=== PATIENT | male | born 1950 | race African-American/Black ===

== ENCOUNTER 2018-04-06 16:16 | Inpatient (IN) | payer BC, OTHER ==
--- NOTE | 2018-04-06 17:25 | PDOC ---
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 As per , she was visiting him at the [facility] when he started shaking for 2 minutes. As per , the patient bit his tongue. The denies any confusion after his episode. The patient can not give a full history, but can answer questions. The patient is back to his baseline now. The patient denies chest pain, shortness of breath, headache or dizziness. The patient denies fever, chills, nausea, vomit, diarrhea or constipation. Allergies: NKDA Past surgical history: urologic Surgery (ANEURYSM), Orthopedic Surgery (right knee replacement) Social history: None reported PCP: Dr. Roxana Ruiz - Physicial Exam PE: 04/06/18 18:33 GENERAL: Awake, alert, and fully oriented, in no acute distress HEAD: No signs of trauma EYES: PERRLA, EOMI, sclera anicteric, conjunctiva clear ENT: (+) hematoma on tip of tongue. Auricles normal inspection, hearing grossly normal. NECK: Normal ROM, supple, no lymphadenopathy, JVD, or masses LUNGS: Breath sounds equal, clear to auscultation bilaterally. No wheezes, and no crackles HEART: Regular rate and rhythm, normal S1 and S2, no murmurs, rubs or gallops ABDOMEN: Soft, nontender, normoactive bowel sounds. No guarding, no rebound. No masses EXTREMITIES:(+) Left upper and lower extremity paralyzed. No clubbing or cyanosis. No cords, erythema, or tenderness NEUROLOGICAL: (+) Left sided facial droop. (+) left sided paralysis in arms/ legs.Cranial nerves II through XII grossly intact. Normal speech SKIN: Warm, Dry, normal turgor, no rashes or lesions noted. <Martina Allen - Last Filed: 04/06/18 18:32> - Resident Resident Name: Nando Johansen - ED Attending Attestation I have performed the following: I have examined & evaluated the patient, The case was reviewed & discussed with the resident, I agree w/resident's findings & plan, Exceptions are as noted - Medical Decision Making 04/06/18 17:24 I, Dr. Jelly Tang DO, attest that this document has been prepared under my direction and personally reviewed by me in its entirety. I further attest, that it accurately reflects all work, treatment, procedures and medical decision -making performed by me. 04/06/18 18:01 a/p: 68yo male biba from his E[facility] -from [place] -per medics and - shaking episode today- bit his tongue, urinary freq and fecal incontinence -concern for seizure today -hx of basal ganglia hemorrhage on the R -will send for head ct, labs, ekg -pt will need obs overnight -ua 04/06/18 19:32 borderline trop no acute findings on head ct 04/06/18 19:37 will replace potassium 04/07/18 01:56 resident discussed the case with [facility] who accepts pt to service <Jelly Tang - Last Filed: 04/07/18 01:56> Heart Score/ECG Review - ECG Intrepretation Comment:: 04/06/18 17:35 sinus at 96 with 1st degree av block, poor r wave progression, q waves septally that are age indeterminate, no acute st/t wave findings, L axis deviation <Jelly Tang - Last Filed: 04/07/18 01:56> Attestations - Attestations 04/06/18 18:33 Documentation prepared by Martina Allen, acting as senior medical director for Jelly Tang DO, MD <Martina Allen - Last Filed: 04/06/18 18:32>
[2018-04-06 18:03] LABS: BASO % 0.6 % (0-2.0); EOS % 1.6 % (0-4.5); HEMATOCRIT 39.4 % (35.4-49); HEMOGLOBIN 12.9 GM/dL (11.7-16.9); LYMPH % 11.5 % (8-40); MCH 23.3 pg (25.7-33.7); MCHC 32.9 g/dl (32.0-35.9); MEAN CELL VOLUME 70.8 fl (80-96); MEAN PLT VOLUME 7.3 fl (7.5-11.1); MONO % 4.7 % (3.8-10.2); NEUT % 81.6 % (42.8-82.8); PLATELET COUNT 139 K/MM3 (134-434); RBC 5.56 M/mm3 (4.00-5.60); RDW 16.1 % (11.9-15.9)
--- NOTE | 2018-04-06 18:11 | PDOC ---
History of Present Illness - General Chief Complaint: Seizure Stated Complaint: SEIZURE Time Seen by Provider: 04/06/18 16:42 History Source: Patient, Family Exam Limitations: Clinical Condition - History of Present Illness Initial Comments: 04/06/18 18:07 Patient is a 68M with history of R basal ganglia bleed with resultant l sided hemiparesis, htn, dm, afb here today complaining of a seizure. His , at bedside, was visiting him from [facility] when he started shaking for 1-2 minutes. reports he had an episode of stool incontinence and bit his tongue. The denies confusion later. No fevers, chills, nausea, vomiting. Patient is able to communicate, but is somewhat limited to answering simple questions. Denies pain, agrees that he feels like he normally does. Patient is complaining of pain to his tongue.. 04/06/18 18:13 Past History - Past Medical History Allergies/Adverse Reactions: Allergies Allergy/AdvReac Type Severity Reaction Status Date / Time No Known Allergies Allergy Verified 08/22/17 13:51 Home Medications: Ambulatory Orders Aa/[place]/Arg/C/Zn/Cu [Lps Critical Care Liquid] 30 ml PO DAILY Acetaminophen 650 mg PO Q6H 04/06/18 Amlodipine Besylate 10 mg PO DAILY 04/06/18 Apixaban [Eliquis -] 5 mg PO BID 04/06/18 Docusate Sodium [Colace -] 100 mg PO TID 04/06/18 Ferrous Sulfate 325 mg PO DAILY 04/06/18 Hydralazine HCl 25 mg PO QID 04/06/18 Levothyroxine [Synthroid -] 75 mcg PO DAILY 04/06/18 Metoprolol Succinate [Toprol Xl -] 100 mg PO DAILY 04/06/18 Olmesartan Medoxomil [Benicar] 40 mg PO DAILY 04/06/18 Polyvinyl Alcohol [Artificial Tears] 2 drop OD QID 04/06/18 Rosuvastatin [Crestor -] 10 mg PO HS 04/06/18 Silver Sulfadiazine 1% Top Cr [Silvadene -] 1 applic TP DAILY 04/06/18 Sitagliptin Phosphate [Januvia] 50 mg PO DAILY 04/06/18 Sodium Chloride [Saline Mist] 1 spray NS TID 04/06/18 Tamsulosin HCl 0.8 mg PO DAILY 04/06/18 Anemia: No Asthma: No Cancer: No Cardiac Disorders: Yes (atrial fib) CVA: Yes (Right basal ganglia bleed (10/2015)) COPD: No CHF: No Dementia: No Diabetes: Yes GI Disorders: No Disorders: No HTN: Yes Hypercholesterolemia: Yes Liver Disease: No Seizures: No Thyroid Disease: Yes - Surgical History Abdominal Surgery: No Appendectomy: No Cardiac Surgery: No Cholecystectomy: No Lung Surgery: No Neurologic Surgery: Yes (ANEURSYM) Orthopedic Surgery: Yes (right knee) - Immunization History Immunization Up to Date: Yes - Suicide/Smoking/Psychosocial Hx Smoking Status: No Smoking History: Unknown if ever smoked Have you smoked in the past 12 months: No Number of Cigarettes Smoked Daily: 0 Information on smoking cessation initiated: No Hx Alcohol Use: No Drug/Substance Use Hx: No Substance Use Type: None Hx Substance Use Treatment: No Review of Systems - Review of Systems Able to Perform ROS?: No (2/2 CVA) *Physical Exam - Vital Signs Last Vital Signs Temp Pulse Resp BP Pulse Ox 98.3 F 110 H 20 188/101 H 95 04/06/18 16:20 04/06/18 16:20 04/06/18 16:20 04/06/18 16:20 04/06/18 16:20 - Physical Exam Comments: 04/06/18 18:11 GENERAL: Awake, alert, and fully oriented HEAD: No signs of trauma, normocephalic, atraumatic EYES: PERRLA, EOMI, sclera anicteric, conjunctiva clear ENT: Auricles normal inspection, hearing grossly normal, nares patent, oropharynx clear without exudates. Moist mucosa NECK: Normal ROM, supple, no lymphadenopathy, JVD, or masses LUNGS: No distress, speaks full sentences, clear to auscultation bilaterally HEART: Regular rate and rhythm, normal S1 and S2, no murmurs, rubs or gallops, peripheral pulses normal and equal bilaterally. ABDOMEN: Soft, nontender, normoactive bowel sounds. No guarding, no rebound. No masses EXTREMITIES: Contracted extremities, left more than right. NEUROLOGICAL: L sided facial droop, left sided paralysis in arms/legs. Sensation intact bilaterally, EOEMI SKIN: Warm, Dry, normal turgor, no rashes or lesions noted. Moderate Sedation - Procedure Monitoring Vital Signs: Procedure Monitoring Vital Signs Temperature 98.3 F 04/06/18 16:20 Pulse Rate 110 H 04/06/18 16:20 Respiratory Rate 20 04/06/18 16:20 Blood Pressure 188/101 H 04/06/18 16:20 O2 Sat by Pulse Oximetry (%) 95 04/06/18 16:20 ED Treatment Course - LABORATORY CBC & Chemistry Diagram: 04/06/18 17:53 04/06/18 17:53 - ADDITIONAL ORDERS Additional order review: Laboratory Results 04/06/18 16:26 POC Glucometer 140 04/06/18 04/06/18 17:53 16:26 RBC 5.56 MCV 70.8 L MCHC 32.9 RDW 16.1 H MPV 7.3 L Neutrophils % 81.6 D Lymphocytes % 11.5 D Monocytes % 4.7 Eosinophils % 1.6 D Basophils % 0.6 POC Glucometer 140 - RADIOLOGY Radiology Studies Ordered: Category Date Time Status HEAD CT WITHOUT CONTRAST [CT] Stat CT Scan 04/06/18 16:55 Ordered CHEST X-RAY PORTABLE* [RAD] Stat Radiology 04/06/18 16:55 Ordered Medical Decision Making - Medical Decision Making 04/06/18 18:13 Patient is 68M with history of R sided basal ganglia bleed, right sided hemiparesis, afib, htn here today with a seizure. Vitals tachycardic at triage, not tachycardic during my exam. DDx includes, but is not limited to: metabolic abnormality, uti, bleed. Will evaluate with basic labs, trop, ekg, head ct. Back to baseline at this time. 04/06/18 20:26 EKG shows NSR at 96. No st elevations/depressions. Left axis. 1st degree av block. Normal QRS, LBBB pattern. No significant t wave abnormalities Head CT negative. CBC, CMP normal. Trop to 0.06. CXR clear. Will obs patient. *DC/Admit/Observation/Transfer Diagnosis at time of Disposition: Seizure - Discharge Dispostion Condition at time of disposition: Stable Decision to Admit order: Yes - Referrals - Patient Instructions - Post Discharge Activity
[2018-04-06 18:16] LABS: INR 1.23 (0.83-1.09); PROTHROMBIN TIME (PATIENT) 14.5 SEC (9.7-13.0)
[2018-04-06 18:55] LABS: ALBUMIN 3.3 g/dl (3.4-5.0); ALK PHOS 128 U/L (45-117); ANION GAP 9 MMOL/L (8-16); BILIRUBIN,TOTAL 0.4 mg/dL (0.2-1); BLOOD UREA NITROGEN 23 mg/dL (7-18); CALCIUM 8.4 mg/dL (8.5-10.1); CHLORIDE 101 mmol/L (98-107); CO2 32 mmol/L (21-32); CREATININE 1.2 mg/dL (0.55-1.3); GLUCOSE,RANDOM 184 mg/dL (74-106); POTASSIUM 3.1 mmol/L (3.5-5.1); SGOT/AST 28 U/L (15-37); SGPT/ALT 36 U/L (13-61); SODIUM 141 mmol/L (136-145)
[2018-04-06] MEDS: KCL 10 MEQ IVPB 10 MEQ/100 ML INFUS.BAG IVPB SCH (21:43)
[2018-04-06] MEDS ORDERED: KCL 10 MEQ IVPB 20 MEQ/200 ML INFUS.BAG IVPB ONE (21:45)
--- NOTE | 2018-04-06 22:01 | HP ---
Admitting History and Physical - Primary Care Physician PCP: Roxana Ruiz - Admission Chief Complaint: Seizure episode History of Present Illness: 68 year old male with a significant past medical history of AFIB, CVA (2012), HTN, HLD, cerebral aneurysm (2012) and [place] (2014), CKD, diabetes II, thyroid disease, hemiplegia and hemiparesis 2/2 right basal ganglia bleed (2015) and who presents to the Emergency Department after a seizure episode on the afternoon of 04/06. As per patient he was in bed at his care home visiting with his when he noted "things in his visual field". I spoke with via phone who endorses patient had generalized shaking for a little over a minute, his eyes rolled back and he had tongue biting which resulted in bleeding from his mouth. denies fecal and urine incontinence (pt was already soiled prior to seizure activity). Pt denies dizziness, chest pain, + shortness of breath after episode. EMS was activated and patient taken to [facility] for evaluation. In ED: head CT negative for acute findings. TRop # 1 = 0.06 Decision made to admit patient for overnight observation with neuro to evaluate in the morning prior to d/c PCP: Dr. 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 (cerebral aneurysm has two titanium clips) Cardiovascular: Yes: AFIB, Deep Vein Thrombosis, HTN, Hyperlipdemia Renal/: Yes: Renal Inusuff Musculoskeletal: Yes: Hemiparesis, Hemiplegia Endocrine: Yes: Diabetes Mellitus, Hypothyroidism Additional Past Medical History: umbilical hernia - Past Surgical History Past Surgical History: Yes: Nephrectomy (right) Additional Past Surgical History: s/p tracheostomy and removal s/p G tube and removal Right knee replacement cerebral Aneurysm s/p coiling s/p right frontal craniotomy - Smoking History Smoking history: Unknown if ever smoked Have you smoked in the past 12 months: No Aproximately how many cigarettes per day: 0 - Alcohol/Substance Use Hx Alcohol Use: No History of Substance Use: reports: None - Social History Usual Living Arrangement: Yes: Long Term ADL: Support Services Occupation: Disabled, History of Recent Travel: No Home Medications - Allergies Allergies/Adverse Reactions: Allergies Allergy/AdvReac Type Severity Reaction Status Date / Time No Known Allergies Allergy Verified 08/22/17 13:51 - Home Medications Home Medications: Ambulatory Orders Aa/[place] Craig,[place]/Arg/C/Zn/Cu [Lps Critical Care Liquid] 30 ml PO DAILY Acetaminophen 650 mg PO Q6H 04/06/18 Amlodipine Besylate 10 mg PO DAILY 04/06/18 Apixaban [Eliquis -] 5 mg PO BID 04/06/18 Docusate Sodium [Colace -] 100 mg PO TID 04/06/18 Ferrous Sulfate 325 mg PO DAILY 04/06/18 Hydralazine HCl 25 mg PO QID 04/06/18 Levothyroxine [Synthroid -] 75 mcg PO DAILY 04/06/18 Metoprolol Succinate [Toprol Xl -] 100 mg PO DAILY 04/06/18 Olmesartan Medoxomil [Benicar] 40 mg PO DAILY 04/06/18 Polyvinyl Alcohol [Artificial Tears] 2 drop OD QID 04/06/18 Rosuvastatin [Crestor -] 10 mg PO HS 04/06/18 Silver Sulfadiazine 1% Top Cr [Silvadene -] 1 applic TP DAILY 04/06/18 Sitagliptin Phosphate [Januvia] 50 mg PO DAILY 04/06/18 Sodium Chloride [Saline Mist] 1 spray NS TID 04/06/18 Tamsulosin HCl 0.8 mg PO DAILY 04/06/18 Family Disease History - Family Disease History Other Family History: mother (70) HTN CVA. father HTN related illnesses. brother age 84, [place]. 9 other siblings, all , no h/o cancer, [place], CVA Review of Systems - Review of Systems Constitutional: reports: No Symptoms Eyes: reports: Floaters Neck: reports: No Symptoms Cardiovascular: reports: Shortness of Breath Physical Examination Vital Signs: Vital Signs Temperature 98.3 F 04/06/18 16:20 Pulse Rate 84 04/06/18 20:27 Respiratory Rate 18 04/06/18 20:27 Blood Pressure 132/88 04/06/18 20:27 O2 Sat by Pulse Oximetry (%) 96 04/06/18 20:27 Labs: CBC, BMP 04/06/18 17:53 04/06/18 17:53 Imaging - Results Chest X-ray: Report Reviewed (Head CT 04/06/2018 Impression: Cranial CT without contrast Clinical information: seizure No acute intracranial hemorrhage is seen. There is no obvious mass lesion on noncontrast imaging. No acute infarct is noted within the limitations of CT. Status post right frontal craniotomy, right temporal craniectomy with cranioplasty. Right temporal lobe and right basal ganglia/right frontal subcortical white matter encephalomalacia. Vascular coils are again seen along the ventral aspect of the right temporal lobe. There is no extra-axial fluid collection. Moderate ventricular dilatation is noted probably due to central atrophy versus representing a component of communicating hydrocephalus. Reported By: Grzegorz Rene MD 04/06/18 [id number]) Problem List - Problems (1) Seizure Assessment/Plan: monitor patient overnight Ativan 1mg PRN seizure activity Neuro consult placed pt has outpatient neurologist with whom he can follow up with Code(s): R56.9 - UNSPECIFIED CONVULSIONS (2) Afib Assessment/Plan: telemetry bed Eliquis 5mg BID metoprol 100mg Daily Code(s): I48.91 - UNSPECIFIED ATRIAL FIBRILLATION Qualifiers: Atrial fibrillation type: paroxysmal Qualified Code(s): I48.0 - Paroxysmal atrial fibrillation (3) Hypercholesteremia Assessment/Plan: crestor 10mg qhs Code(s): E78.0 - PURE HYPERCHOLESTEROLEMIA * DO NOT USE * (4) Hypertension Assessment/Plan: continue home dose of valsartan, norvasc and hydralazine cardiac diet Code(s): I10 - ESSENTIAL (PRIMARY) HYPERTENSION Qualifiers: Hypertension type: essential hypertension Qualified Code(s): I10 - Essential (primary) hypertension (5) Hypothyroid Assessment/Plan: synthroid 75mcg TSH/T4F with AM labs Code(s): E03.9 - HYPOTHYROIDISM, UNSPECIFIED Qualifiers: Hypothyroidism type: unspecified Qualified Code(s): E03.9 - Hypothyroidism , unspecified (6) BPH (benign prostatic hyperplasia) Assessment/Plan: continue flomax Code(s): N40.0 - BENIGN PROSTATIC HYPERPLASIA WITHOUT LOWER URINRY TRACT SYMP (7) Diabetes mellitus Assessment/Plan: continue Januvia fingerstick AC/HS Code(s): E11.9 - TYPE 2 DIABETES MELLITUS WITHOUT COMPLICATIONS Qualifiers: Diabetes mellitus type: type 2 Assessment/Plan DISPO: Full code -d/c to [place] if remains stable and cleared by neuro in the morning Visit type - Emergency Visit Emergency Visit: Yes ED Registration Date: 04/06/18 Care time: The patient presented to the Emergency Department on the above date and was hospitalized for further evaluation of their emergent condition. - New Patient This patient is new to me today: Yes Date on this admission: 04/06/18 - Critical Care Critical Care patient: No
[2018-04-06] MEDS: ACETAMINOPHEN 325 MG TABLET (FP) PO SCH (22:03)
[2018-04-06] MEDS ORDERED: ALBUTEROL SO4 2.5/IPRATROPIUM 0.5 INH SOL 3 ML VIAL.NEB. NEB ONE (22:13)
[2018-04-06] MEDS ORDERED: methylPREDNISolone NA SUCC 125 MG/2 ML VIAL ONE (22:14)
[2018-04-06] MEDS ORDERED: LORazepam 2 MG/ML SDV VIAL IVPUSH PRN (22:29)
[2018-04-06] MEDS: ARTIFICIAL TEARS (POLYVINYL ALCOHOL) OPTH DROPS OD SCH (22:50)
[2018-04-06] MEDS: APIXABAN 5 MG TABLET PO SCH (22:50)
[2018-04-06] MEDS: DOCUSATE SODIUM 100 MG CAPSULE (FP) PO SCH (22:50)
[2018-04-06] MEDS: SODIUM CHLORIDE NASAL SPRAY 44 ML BOTTLE NS SCH (22:50)
[2018-04-06] MEDS: ROSUVASTATIN CA 10 MG TABLET (FP) PO SCH (22:50)
[2018-04-07] MEDS: ACETAMINOPHEN 325 MG TABLET (FP) PO SCH ×5 (00:12→23:42)
[2018-04-07] MEDS: hydrALAZINE HCL 25 MG TABLET (FP) PO SCH ×5 (00:12→23:42)
[2018-04-07] MEDS: DOCUSATE SODIUM 100 MG CAPSULE (FP) PO SCH ×3 (05:30→21:23)
[2018-04-07] MEDS: sitaGLIPtin PHOSPHATE 50 MG TABLET PO SCH (06:14)
[2018-04-07] MEDS: SODIUM CHLORIDE NASAL SPRAY 44 ML BOTTLE NS SCH ×3 (06:14→21:18)
[2018-04-07] MEDS: LEVOTHYROXINE NA 75 MCG TABLET (FP) PO SCH (06:15)
[2018-04-07] MEDS: amLODIPine BESYLATE 10 MG TABLET (FP) PO SCH (09:55)
[2018-04-07] MEDS: FERROUS SO4 325 MG TABLET (FP) PO SCH (09:55)
[2018-04-07] MEDS: TAMSULOSIN HCL 0.4 MG CAP PO SCH (09:55)
[2018-04-07] MEDS: APIXABAN 5 MG TABLET PO SCH ×2 (09:55→21:17)
[2018-04-07] MEDS: VALSARTAN 160 MG TABLET (UD) PO SCH (09:55)
[2018-04-07] MEDS: ARTIFICIAL TEARS (POLYVINYL ALCOHOL) OPTH DROPS OD SCH ×4 (09:56→21:18)
[2018-04-07] MEDS: SILVER SULFADIAZINE 1% TOP CREAM 50 GM JAR TP SCH (09:57)
[2018-04-07] MEDS ORDERED: PATIENT'S OWN MEDICATION (NON-FORMULARY) (Aa/Hydro Coll,Whey/Arg/C/Zn/Cu [Lps Critical Car PO SCH (10:00)
--- NOTE | 2018-04-07 11:20 | PN ---
Progress Note, Physician Chief Complaint: patient admitted for seizure repeat labs ordered including trop and potassium level cardiology and neurology consult pending - Current Medication List Current Medications: Active Medications Acetaminophen (Tylenol -) 650 mg PO Q6HPO [facility] Last Admin: 04/07/18 05:30 Dose: 650 mg Amlodipine Besylate (Norvasc -) 10 mg PO DAILY [facility] Last Admin: 04/07/18 09:55 Dose: 10 mg Apixaban (Eliquis -) 5 mg PO BID [facility] Last Admin: 04/07/18 09:55 Dose: 5 mg Artificial Tears (Artificial Tears) 2 drop OD QID [facility] Last Admin: 04/07/18 09:56 Dose: 2 drop Docusate Sodium (Colace -) 100 mg PO TID [facility] Last Admin: 04/07/18 05:30 Dose: 100 mg Ferrous Sulfate (Feosol -) 325 mg PO DAILY [facility] Last Admin: 04/07/18 09:55 Dose: 325 mg Hydralazine HCl (Apresoline -) 25 mg PO Q6HPO [facility] Last Admin: 04/07/18 05:30 Dose: 25 mg Levothyroxine Sodium (Synthroid -) 75 mcg PO DAILY@0700 [facility] Last Admin: 04/07/18 06:15 Dose: 75 mcg Lorazepam (Ativan Injection -) 1 mg IVPUSH Q6H PRN PRN Reason: seizure activity Metoprolol Succinate (Toprol Xl -) 100 mg PO DAILY [facility] Last Admin: 04/07/18 09:55 Dose: 100 mg Rosuvastatin Calcium (Crestor -) 10 mg PO HS [facility] Last Admin: 04/06/18 22:50 Dose: 10 mg Silver Sulfadiazine (Silvadene -) 1 applic TP DAILY [facility] Last Admin: 04/07/18 09:57 Dose: Not Given Sitagliptin Phosphate (Januvia -) 50 mg PO DAILY@0700 [facility] Last Admin: 04/07/18 06:14 Dose: 50 mg Sodium Chloride ([place] -) 1 spray NS TID [facility] Last Admin: 04/07/18 06:14 Dose: 1 spray Tamsulosin HCl (Flomax -) 0.8 mg PO DAILY@0830 [facility] Last Admin: 04/07/18 09:55 Dose: 0.8 mg Valsartan (Diovan -) 320 mg PO DAILY [facility] Last Admin: 04/07/18 09:55 Dose: 320 mg - Objective Vital Signs: Vital Signs Temperature 98.3 F 04/07/18 09:29 Pulse Rate 54 L 04/07/18 09:29 Respiratory Rate 20 04/07/18 09:29 Blood Pressure 153/94 04/07/18 09:29 O2 Sat by Pulse Oximetry (%) 95 04/07/18 09:29 Constitutional: Yes: Calm Cardiovascular: Yes: Regular Rate and Rhythm, S1, S2 Respiratory: Yes: CTA Bilaterally Gastrointestinal: Yes: Normal Bowel Sounds, Soft Neurological: Yes: Pre-Existing Deficit Labs: CBC, BMP 04/06/18 17:53 04/06/18 17:53 INR, PTT INR 1.23 (0.83-1.09) H 04/06/18 17:53 Problem List - Problems (1) Seizure Assessment/Plan: eeg neurology eval repeat labs ordered Code(s): R56.9 - UNSPECIFIED CONVULSIONS (2) BPH (benign prostatic hyperplasia) Assessment/Plan: flomax Code(s): N40.0 - BENIGN PROSTATIC HYPERPLASIA WITHOUT LOWER URINRY TRACT SYMP (3) Afib Assessment/Plan: metoprolol and eliquis Code(s): I48.91 - UNSPECIFIED ATRIAL FIBRILLATION Qualifiers: Atrial fibrillation type: paroxysmal Qualified Code(s): I48.0 - Paroxysmal atrial fibrillation (4) Hypothyroid Assessment/Plan: on synthroid Code(s): E03.9 - HYPOTHYROIDISM, UNSPECIFIED Qualifiers: Hypothyroidism type: unspecified Qualified Code(s): E03.9 - Hypothyroidism , unspecified
--- NOTE | 2018-04-07 11:48 | CON.NEURO ---
Consult Consult Specialty:: NEUROLOGY-NAN JAVIER - History of Present Illness History of Present Illness: The patient is a 68 year old male, from [facility], with a significant past medical history of hemiplegia and hemiparesis 2/2 right basal ganglia bleed (2015), Diabetes, HTN, HLD, CVA (2012), cerebral aneurysm (2012) and [place] (2014), Atrial fibrillation, and Thyroid disease who presents to the emergency department, after having a seizure. As per , she was visiting him at the halfway when he started shaking for 2 minutes. As per , the patient bit his tongue. The denies any confusion after his episode. The patient can not give a full history, but can answer questions. The patient is back to his baseline now. As per he has had aneurysm clipping/cerebral hge at [facility], he had a GTC at that time. K+ was low yesterday, she witnessed a GTC yesterday. The patient denies chest pain, shortness of breath, headache or dizziness. The patient denies fever, chills, nausea, vomit, diarrhea or constipation. 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 deep vein thrombosis - Past Surgical History Past Surgical History: Yes: Nephrectomy (right) - Alcohol/Substance Use Hx Alcohol Use: No History of Substance Use: reports: None - Smoking History Smoking history: Unknown if ever smoked Have you smoked in the past 12 months: No Aproximately how many cigarettes per day: 0 - Social History ADL: Support Services Occupation: Disabled, History of Recent Travel: No Home Medications - Allergies Allergies/Adverse Reactions: Allergies Allergy/AdvReac Type Severity Reaction Status Date / Time No Known Allergies Allergy Verified 08/22/17 13:51 - Home Medications Home Medications: Ambulatory Orders Aa/[place] Craig,[place]/Arg/C/Zn/Cu [Lps Critical Care Liquid] 30 ml PO DAILY Acetaminophen 650 mg PO Q6H 04/06/18 Amlodipine Besylate 10 mg PO DAILY 04/06/18 Apixaban [Eliquis -] 5 mg PO BID 04/06/18 Docusate Sodium [Colace -] 100 mg PO TID 04/06/18 Ferrous Sulfate 325 mg PO DAILY 04/06/18 Hydralazine HCl 25 mg PO QID 04/06/18 Levothyroxine [Synthroid -] 75 mcg PO DAILY 04/06/18 Metoprolol Succinate [Toprol Xl -] 100 mg PO DAILY 04/06/18 Olmesartan Medoxomil [Benicar] 40 mg PO DAILY 04/06/18 Polyvinyl Alcohol [Artificial Tears] 2 drop OD QID 04/06/18 Rosuvastatin [Crestor -] 10 mg PO HS 04/06/18 Silver Sulfadiazine 1% Top Cr [Silvadene -] 1 applic TP DAILY 04/06/18 Sitagliptin Phosphate [Januvia] 50 mg PO DAILY 04/06/18 Sodium Chloride [Saline Mist] 1 spray NS TID 04/06/18 Tamsulosin HCl 0.8 mg PO DAILY 04/06/18 Family Disease History - Family Disease History Other Family History: mother (70) HTN CVA. father HTN related illnesses. brother age 84, [place]. 9 other siblings, all , no h/o cancer, [place], CVA Physical Exam-Neuro Vital Signs: Vital Signs Temperature 98.3 F 04/07/18 09:29 Pulse Rate 54 L 04/07/18 09:29 Respiratory Rate 20 04/07/18 09:29 Blood Pressure 153/94 04/07/18 09:29 O2 Sat by Pulse Oximetry (%) 95 04/07/18 09:29 Labs: CBC, BMP 04/06/18 17:53 04/06/18 17:53 INR, PTT INR 1.23 (0.83-1.09) H 04/06/18 17:53 - Neuro Exam Level Of Consciousness: Yes: Alert, Oriented to Person, Oriented to Place Eyes: Yes: Right Hemianopsia Speech: WNL Dominant Hand: Right Mini Mental Exam: Intact att/conc. Cranial Nerves II-XII Intact: No DTR's: 2+ Left Achilles, 2+ Right Achilles, 3+ Left Bicep, 3+ Right Bicep, 3+ Left Tricep, 3+ Right Tricep, 3+ Left Brachioradialis, 3+ Right Brachioradialis Babinski: Present (left) Motor Strength: 0/5: Left Arm, Left Leg, 5/5: Left Arm, Right Arm, Left Leg, Right Leg Gait: Other (unable to stand) Imaging - Results Cat Scan: Report Reviewed (Right frontal/temp.craniectomy, right temp/bg encephalomalacia) Assessment/Plan Sz(partial with sec.gen.x1 in setting of old right temp hge. Likely triggered by metabolic abn. Given he has a possible focus would place on Keppra 750mg bid , EEG Thank you, Travis Lane MD
[2018-04-07 13:12] LABS: ALBUMIN 3.2 g/dl (3.4-5.0); ALK PHOS 118 U/L (45-117); ANION GAP 7 MMOL/L (8-16); BILIRUBIN,TOTAL 0.6 mg/dL (0.2-1); BLOOD UREA NITROGEN 19 mg/dL (7-18); CALCIUM 8.3 mg/dL (8.5-10.1); CHLORIDE 104 mmol/L (98-107); CO2 31 mmol/L (21-32); CREATININE 1.1 mg/dL (0.55-1.3); GLUCOSE,RANDOM 106 mg/dL (74-106); SGOT/AST 22 U/L (15-37); SGPT/ALT 30 U/L (13-61); SODIUM 142 mmol/L (136-145); TOT PROT 7.9 g/dl (6.4-8.2)
[2018-04-07] MEDS ORDERED: POTASSIUM CHLORIDE ORAL LIQUID 20 MEQ/15 ML PO ONE (14:36)
--- NOTE | 2018-04-07 14:38 | PN ---
Progress Note (short form) - Note Progress Note: replete potassium troponin high- cardiology eval repeat labs in AM Problem List - Problems (1) Seizure Code(s): R56.9 - UNSPECIFIED CONVULSIONS (2) BPH (benign prostatic hyperplasia) Code(s): N40.0 - BENIGN PROSTATIC HYPERPLASIA WITHOUT LOWER URINRY TRACT SYMP (3) Afib Code(s): I48.91 - UNSPECIFIED ATRIAL FIBRILLATION Qualifiers: Atrial fibrillation type: paroxysmal Qualified Code(s): I48.0 - Paroxysmal atrial fibrillation (4) Hypothyroid Code(s): E03.9 - HYPOTHYROIDISM, UNSPECIFIED Qualifiers: Hypothyroidism type: unspecified Qualified Code(s): E03.9 - Hypothyroidism , unspecified
--- NOTE | 2018-04-07 15:04 | ECHO ---
Name: ANDREW SEOJAYDEN Exam:Adult Echocardiogram Study Date: 04/07/2018 09:33 AM Age: 68 yrs Reason For Study: Murmur MMode/2D Measurements & Calculations IVSd: 1.8 cm Ao root diam: 4.7 cm LVIDd: 4.7 cm LA dimension: 2.2 cm LVIDs: 2.4 cm ACS: 2.0 cm LVPWd: 1.7 cm IVSs: 2.4 cm LVPWs: 2.4 cm EDV(Teich): 100.7 ml ESV(Teich): 20.7 ml Doppler Measurements & Calculations MV E max lane: 66.1 cm/sec Ao V2 max: 76.4 cm/sec MV A max lane: 88.1 cm/sec Ao max P.3 mmHg MV E/A: 0.75 Ao V2 mean: 55.5 cm/sec Ao mean P.4 mmHg Ao V2 VTI: 16.[address]: 3.3 cm/sec Med E/e': 20.[address]: 4.2 cm/sec Lat E/e': 15.9 Procedure A complete two-dimensional transthoracic echocardiogram was performed (2D, M-mode, Doppler and color flow Doppler). Left Ventricle There is severe concentric left ventricular hypertrophy. The left ventricular ejection fraction is no rmal. Ejection Fraction = 60-65%. The left ventricular wall motion is normal. Right Ventricle The right ventricle is normal in size and function. Atria Normal left and right atrial size and function. Mitral Valve There is no mitral regurgitation noted. Tricuspid Valve There is trace tricuspid regurgitation. There was insufficient TR detected to calculate RV systolic p ressure. Aortic Valve No hemodynamically significant valvular aortic stenosis. No aortic regurgitation is present. Pulmonic Valve There is no pulmonic valvular regurgitation. Great Vessels Aortic root is dilated at 4.7 cm. Pericardium/Pleura Trivial pericardial effusion not hemodynamically significant. Interpretation Summary There is severe concentric left ventricular hypertrophy. The left ventricular ejection fraction is normal. The right ventricle is normal in size and function. There is trace tricuspid regurgitation. Aortic root is dilated at 4.7 cm. Trivial pericardial effusion not hemodynamically significant MD Mike Berry 04/07/2018 03:03 PM
--- NOTE | 2018-04-07 16:57 | EKG ---
Test Reason : Blood Pressure : / mmHG Vent. Rate : 096 BPM Atrial Rate : 096 BPM P-R Int : 244 ms QRS Dur : 106 ms QT Int : 364 ms P-R-T Axes : -06 -44 073 degrees QTc Int : 459 ms SINUS RHYTHM WITH 1ST DEGREE A-V BLOCK LEFT AXIS DEVIATION INCOMPLETE LEFT BUNDLE BRANCH BLOCK MINIMAL VOLTAGE CRITERIA FOR LVH, MAY BE NORMAL VARIANT ABNORMAL ECG WHEN COMPARED WITH ECG OF 23-AUG-2017 11:04, VENT. RATE HAS INCREASED BY 35 BPM T WAVE INVERSION NO LONGER EVIDENT IN LATERAL LEADS Confirmed by GINA SWEET MD ([id number]) on 04/07/2018 4:57:13 PM Referred By: Confirmed By:GINA SWEET MD
[2018-04-07] MEDS ORDERED: levETIRAcetam 250 MG TABLET (FP) PO ONE (20:56)
[2018-04-07] MEDS ORDERED: levETIRAcetam 500 MG TABLET (FP) PO ONE (20:57)
[2018-04-07] MEDS: ROSUVASTATIN CA 10 MG TABLET (FP) PO SCH (21:17)
[2018-04-07] MEDS ORDERED: levETIRAcetam 250 MG TABLET (FP) PO SCH (22:00)
[2018-04-07] MEDS ORDERED: levETIRAcetam 500 MG TABLET (FP) PO SCH (22:00)
[2018-04-08] MEDS: DOCUSATE SODIUM 100 MG CAPSULE (FP) PO SCH ×3 (06:20→21:11)
[2018-04-08] MEDS: hydrALAZINE HCL 25 MG TABLET (FP) PO SCH ×3 (06:20→17:42)
[2018-04-08] MEDS: ACETAMINOPHEN 325 MG TABLET (FP) PO SCH ×3 (06:21→17:42)
[2018-04-08] MEDS: sitaGLIPtin PHOSPHATE 50 MG TABLET PO SCH (06:22)
[2018-04-08] MEDS: SODIUM CHLORIDE NASAL SPRAY 44 ML BOTTLE NS SCH ×3 (06:22→21:12)
[2018-04-08] MEDS: LEVOTHYROXINE NA 75 MCG TABLET (FP) PO SCH (06:22)
[2018-04-08 07:07] LABS: BASO % 0.7 % (0-2.0); EOS % 4.8 % (0-4.5); HEMATOCRIT 34.3 % (35.4-49); HEMOGLOBIN 11.1 GM/dL (11.7-16.9); LYMPH % 30.3 % (8-40); MCH 22.8 pg (25.7-33.7); MCHC 32.2 g/dl (32.0-35.9); MEAN CELL VOLUME 70.7 fl (80-96); MEAN PLT VOLUME 8.3 fl (7.5-11.1); MONO % 7.5 % (3.8-10.2); NEUT % 56.7 % (42.8-82.8); PLATELET COUNT 142 K/MM3 (134-434); RBC 4.86 M/mm3 (4.00-5.60); RDW 16.2 % (11.9-15.9); WHITE BLOOD COUNT 4.4 K/mm3 (4.0-10.0)
[2018-04-08 08:13] LABS: ALBUMIN 2.6 g/dl (3.4-5.0); ALK PHOS 96 U/L (45-117); ANION GAP 6 MMOL/L (8-16); BILIRUBIN,TOTAL 0.4 mg/dL (0.2-1); BLOOD UREA NITROGEN 27 mg/dL (7-18); CALCIUM 7.5 mg/dL (8.5-10.1); CHLORIDE 106 mmol/L (98-107); CO2 32 mmol/L (21-32); CREATININE 1.2 mg/dL (0.55-1.3); GLUCOSE,RANDOM 108 mg/dL (74-106); POTASSIUM 3.1 mmol/L (3.5-5.1); SGOT/AST 18 U/L (15-37); SGPT/ALT 25 U/L (13-61); SODIUM 145 mmol/L (136-145); TOT PROT 6.7 g/dl (6.4-8.2)
[2018-04-08] MEDS ORDERED: levETIRAcetam 500 MG TABLET (FP) PO ONE ×2 (09:04→21:04)
[2018-04-08] MEDS ORDERED: levETIRAcetam 250 MG TABLET (FP) PO ONE ×2 (09:04→21:04)
--- NOTE | 2018-04-08 09:21 | PN ---
Progress Note, Physician History of Present Illness: awake alert no complaints - Current Medication List Current Medications: Active Medications Acetaminophen (Tylenol -) 650 mg PO Q6HPO [facility] Last Admin: 04/08/18 06:21 Dose: 650 mg Amlodipine Besylate (Norvasc -) 10 mg PO DAILY [facility] Last Admin: 04/07/18 09:55 Dose: 10 mg Apixaban (Eliquis -) 5 mg PO BID [facility] Last Admin: 04/07/18 21:17 Dose: 5 mg Artificial Tears (Artificial Tears) 2 drop OD QID [facility] Last Admin: 04/07/18 21:18 Dose: 2 drop Docusate Sodium (Colace -) 100 mg PO TID [facility] Last Admin: 04/08/18 06:20 Dose: 100 mg Ferrous Sulfate (Feosol -) 325 mg PO DAILY [facility] Last Admin: 04/07/18 09:55 Dose: 325 mg Hydralazine HCl (Apresoline -) 25 mg PO Q6HPO [facility] Last Admin: 04/08/18 06:20 Dose: 25 mg Levetiracetam 500 mg/ (Levetiracetam 250 mg) 750 mg PO BID [facility] Last Admin: 04/07/18 21:16 Dose: 750 mg Levothyroxine Sodium (Synthroid -) 75 mcg PO DAILY@0700 [facility] Last Admin: 04/08/18 06:22 Dose: 75 mcg Lorazepam (Ativan Injection -) 1 mg IVPUSH Q6H PRN PRN Reason: seizure activity Metoprolol Succinate (Toprol Xl -) 100 mg PO DAILY [facility] Last Admin: 04/07/18 09:55 Dose: 100 mg Rosuvastatin Calcium (Crestor -) 10 mg PO HS [facility] Last Admin: 04/07/18 21:17 Dose: 10 mg Silver Sulfadiazine (Silvadene -) 1 applic TP DAILY [facility] Last Admin: 04/07/18 09:57 Dose: Not Given Sitagliptin Phosphate (Januvia -) 50 mg PO DAILY@0700 [facility] Last Admin: 04/08/18 06:22 Dose: 50 mg Sodium Chloride ([place] Nasal [place] -) 1 spray NS TID [facility] Last Admin: 04/08/18 06:22 Dose: Not Given Tamsulosin HCl (Flomax -) 0.8 mg PO DAILY@0830 [facility] Last Admin: 04/07/18 09:55 Dose: 0.8 mg Valsartan (Diovan -) 320 mg PO DAILY [facility] Last Admin: 04/07/18 09:55 Dose: 320 mg - Objective Vital Signs: Vital Signs Temperature 98.7 F 04/08/18 02:00 Pulse Rate 59 L 04/08/18 02:00 Respiratory Rate 20 04/08/18 02:00 Blood Pressure 175/88 H 04/08/18 02:00 O2 Sat by Pulse Oximetry (%) 98 04/07/18 22:00 Cardiovascular: Yes: Regular Rate and Rhythm Respiratory: Yes: Regular, CTA Bilaterally Gastrointestinal: Yes: Normal Bowel Sounds, Soft Neurological: Yes: Alert, Oriented, Pre-Existing Deficit Labs: CBC, BMP 04/08/18 05:30 04/08/18 05:30 INR, PTT INR 1.23 (0.83-1.09) H 04/06/18 17:53 Problem List - Problems (1) Seizure Assessment/Plan: Per Neuro Sz(partial with sec.gen.x1 in setting of old right temp hge. Likely triggered by metabolic abn. Given he has a possible focus would place on Keppra 750mg bid , EEG Thank you, Travis Lane MD Code(s): R56.9 - UNSPECIFIED CONVULSIONS (2) BPH (benign prostatic hyperplasia) Assessment/Plan: same meds Code(s): N40.0 - BENIGN PROSTATIC HYPERPLASIA WITHOUT LOWER URINRY TRACT SYMP (3) Cerebral aneurysm Code(s): I67.1 - CEREBRAL ANEURYSM, NONRUPTURED (4) Cerebrovascular disease Code(s): I67.9 - CEREBROVASCULAR DISEASE, UNSPECIFIED (5) Diabetes mellitus Code(s): E11.9 - TYPE 2 DIABETES MELLITUS WITHOUT COMPLICATIONS Qualifiers: Diabetes mellitus type: type 2 (6) Demand ischemia Assessment/Plan: -monitor trop -cardio consult Code(s): I24.8 - OTHER FORMS OF ACUTE ISCHEMIC HEART DISEASE
[2018-04-08] MEDS: VALSARTAN 160 MG TABLET (UD) PO SCH (09:46)
[2018-04-08] MEDS: amLODIPine BESYLATE 10 MG TABLET (FP) PO SCH (09:46)
[2018-04-08] MEDS: TAMSULOSIN HCL 0.4 MG CAP PO SCH (09:46)
[2018-04-08] MEDS: FERROUS SO4 325 MG TABLET (FP) PO SCH (09:46)
[2018-04-08] MEDS: APIXABAN 5 MG TABLET PO SCH ×2 (09:46→21:11)
[2018-04-08] MEDS: ARTIFICIAL TEARS (POLYVINYL ALCOHOL) OPTH DROPS OD SCH ×4 (09:54→21:12)
[2018-04-08] MEDS: SILVER SULFADIAZINE 1% TOP CREAM 50 GM JAR TP SCH (09:55)
--- NOTE | 2018-04-08 11:45 | CON.CARD ---
Consult Consult Specialty:: Cardiology Referred by:: Dr. 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 Patient denies chest pain, dyspnea, near or true syncope, palpitation, orthopnea , PND or LE edema. 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 deep vein thrombosis - Past Surgical History Past Surgical History: Yes: Nephrectomy (right) - Alcohol/Substance Use Hx Alcohol Use: No History of Substance Use: reports: None - Smoking History Smoking history: Unknown if ever smoked Have you smoked in the past 12 months: No Aproximately how many cigarettes per day: 0 - Social History ADL: Support Services Occupation: Disabled, History of Recent Travel: No Home Medications - Allergies Allergies/Adverse Reactions: Allergies Allergy/AdvReac Type Severity Reaction Status Date / Time No Known Allergies Allergy Verified 08/22/17 13:51 - Home Medications Home Medications: Ambulatory Orders Aa/[place]/Arg/C/Zn/Cu [Lps Critical Care Liquid] 30 ml PO DAILY Acetaminophen 650 mg PO Q6H 04/06/18 Amlodipine Besylate 10 mg PO DAILY 04/06/18 Apixaban [Eliquis -] 5 mg PO BID 04/06/18 Docusate Sodium [Colace -] 100 mg PO TID 04/06/18 Ferrous Sulfate 325 mg PO DAILY 04/06/18 Hydralazine HCl 25 mg PO QID 04/06/18 Levothyroxine [Synthroid -] 75 mcg PO DAILY 04/06/18 Metoprolol Succinate [Toprol Xl -] 100 mg PO DAILY 04/06/18 Olmesartan Medoxomil [Benicar] 40 mg PO DAILY 04/06/18 Polyvinyl Alcohol [Artificial Tears] 2 drop OD QID 04/06/18 Rosuvastatin [Crestor -] 10 mg PO HS 04/06/18 Silver Sulfadiazine 1% Top Cr [Silvadene -] 1 applic TP DAILY 04/06/18 Sitagliptin Phosphate [Januvia] 50 mg PO DAILY 04/06/18 Sodium Chloride [Saline Mist] 1 spray NS TID 04/06/18 Tamsulosin HCl 0.8 mg PO DAILY 04/06/18 Family Disease History - Family Disease History Other Family History: mother (70) HTN CVA. father HTN related illnesses. brother age 84, [place]. 9 other siblings, all , no h/o cancer, [place], CVA Review of Systems - Review of Systems Neurological: reports: Seizure Vital Signs: Vital Signs Temperature 98.7 F 04/08/18 02:00 Pulse Rate 59 L 04/08/18 02:00 Respiratory Rate 20 04/08/18 02:00 Blood Pressure 175/88 H 04/08/18 02:00 O2 Sat by Pulse Oximetry (%) 98 04/07/18 22:00 Constitutional: Yes: No Distress, Calm Neck: Yes: Supple Respiratory: Yes: Regular, CTA Bilaterally Gastrointestinal: Yes: Normal Bowel Sounds, Soft Cardiovascular: Yes: Regular Rate and Rhythm JVD: No Carotid Bruit: No Heart Sounds: Yes: S1, S2 Edema: No Neurological: Yes: Seizure - Other Data Labs, Other Data: CBC, BMP 04/08/18 05:30 04/08/18 05:30 INR, PTT INR 1.23 (0.83-1.09) H 04/06/18 17:53 Troponin, BNP 04/07/18 04/08/18 12:10 05:30 Troponin I 0.07 H 0.07 H Troponin, BNP 04/07/18 04/08/18 12:10 05:30 Troponin I 0.07 H 0.07 H NSR @ 96 1st deg AVB incomplete LBBB Ejection Fraction %: LVEF > or = 40 % Imaging - Results Chest X-ray: Report Reviewed (Left medling ATX) Cat Scan: Report Reviewed (HCT Old right temporal, basal ganglia and frontal stroke) Problem List - Problems (1) Demand ischemia Code(s): I24.8 - OTHER FORMS OF ACUTE ISCHEMIC HEART DISEASE (2) Seizure Code(s): R56.9 - UNSPECIFIED CONVULSIONS (3) Afib Code(s): I48.91 - UNSPECIFIED ATRIAL FIBRILLATION Qualifiers: Atrial fibrillation type: paroxysmal Qualified Code(s): I48.0 - Paroxysmal atrial fibrillation (4) CAD (coronary artery disease) Code(s): I25.10 - ATHSCL HEART DISEASE OF [place] CORONARY ARTERY W/O ANG PCTRS Qualifiers: Coronary Disease-Associated Artery/Lesion type: [place] artery [place] vs. transplanted heart: [place] heart Associated angina: with unspecified angina Qualified Code(s): I25.119 - Atherosclerotic heart disease of [place] coronary artery with unspecified angina pectoris (5) Cerebral aneurysm Code(s): I67.1 - CEREBRAL ANEURYSM, NONRUPTURED (6) Cerebrovascular disease Code(s): I67.9 - CEREBROVASCULAR DISEASE, UNSPECIFIED (7) Diabetes mellitus Code(s): E11.9 - TYPE 2 DIABETES MELLITUS WITHOUT COMPLICATIONS Qualifiers: Diabetes mellitus type: type 2 (8) Hypertension Code(s): I10 - ESSENTIAL (PRIMARY) HYPERTENSION Qualifiers: Hypertension type: essential hypertension Qualified Code(s): I10 - Essential (primary) hypertension (9) Hypothyroid Code(s): E03.9 - HYPOTHYROIDISM, UNSPECIFIED Qualifiers: Hypothyroidism type: unspecified Qualified Code(s): E03.9 - Hypothyroidism , unspecified Assessment/Plan 1. Seizure d/o 2. Demand ischemia 3. PAF ([id number] score 5) 4. HTN - labile 5. Hypercholesterolemia 6. CVA 7. Cerebral aneurysm s/p endoclip 8. Hypothyroidism 9. S/P right nephrectomy 10. Hypokalemia PLAN: 1. Neuro input appreciated, tolerated Keppra, f/u EEG, trops plateaued and following trend, replete K 2. Continue Metoprolol ER 100 qd, Diovan 320 qd, Norvasc 10 qd, hydralazine 25 qid 3. Continue Crestor 10 qhs and Eliquis 5 mg BID 4. D/c telemetry 5. Thank you for consultative opportunity, F/u in office
[2018-04-08 13:00] VITALS: BMI 29.5
[2018-04-08] MEDS: ROSUVASTATIN CA 10 MG TABLET (FP) PO SCH (21:11)
[2018-04-09] MEDS: ACETAMINOPHEN 325 MG TABLET (FP) PO SCH ×5 (00:46→23:32)
[2018-04-09] MEDS: hydrALAZINE HCL 25 MG TABLET (FP) PO SCH ×3 (00:47→14:38)
[2018-04-09] MEDS: sitaGLIPtin PHOSPHATE 50 MG TABLET PO SCH (06:31)
[2018-04-09] MEDS: LEVOTHYROXINE NA 75 MCG TABLET (FP) PO SCH (06:31)
[2018-04-09] MEDS: SODIUM CHLORIDE NASAL SPRAY 44 ML BOTTLE NS SCH ×3 (06:32→23:58)
[2018-04-09] MEDS: DOCUSATE SODIUM 100 MG CAPSULE (FP) PO SCH ×3 (06:33→23:32)
[2018-04-09] MEDS ORDERED: levETIRAcetam 500 MG TABLET (FP) PO ONE ×2 (09:04→23:09)
[2018-04-09] MEDS ORDERED: levETIRAcetam 250 MG TABLET (FP) PO ONE ×2 (09:04→23:09)
[2018-04-09] MEDS: FERROUS SO4 325 MG TABLET (FP) PO SCH (09:24)
[2018-04-09] MEDS: amLODIPine BESYLATE 10 MG TABLET (FP) PO SCH (09:24)
[2018-04-09] MEDS: TAMSULOSIN HCL 0.4 MG CAP PO SCH (09:24)
[2018-04-09] MEDS: APIXABAN 5 MG TABLET PO SCH ×2 (09:24→23:33)
[2018-04-09] MEDS: VALSARTAN 160 MG TABLET (UD) PO SCH (09:24)
[2018-04-09] MEDS: SILVER SULFADIAZINE 1% TOP CREAM 50 GM JAR TP SCH (09:25)
[2018-04-09] MEDS: ARTIFICIAL TEARS (POLYVINYL ALCOHOL) OPTH DROPS OD SCH ×4 (09:25→23:58)
--- NOTE | 2018-04-09 12:56 | PN ---
Progress Note, Physician Chief Complaint: AWAKE ALERT EVENTS AND NOTES REVIEWED IN BED SHARES NO COMPLAINTS - Current Medication List Current Medications: Active Medications Acetaminophen (Tylenol -) 650 mg PO Q6HPO [facility] Last Admin: 04/09/18 06:31 Dose: 650 mg Amlodipine Besylate (Norvasc -) 10 mg PO DAILY [facility] Last Admin: 04/09/18 09:24 Dose: 10 mg Apixaban (Eliquis -) 5 mg PO BID [facility] Last Admin: 04/09/18 09:24 Dose: 5 mg Artificial Tears (Artificial Tears) 2 drop OD QID [facility] Last Admin: 04/09/18 09:25 Dose: 2 drop Docusate Sodium (Colace -) 100 mg PO TID [facility] Last Admin: 04/09/18 06:33 Dose: 100 mg Ferrous Sulfate (Feosol -) 325 mg PO DAILY [facility] Last Admin: 04/09/18 09:24 Dose: 325 mg Hydralazine HCl (Apresoline -) 25 mg PO Q6HPO [facility] Last Admin: 04/09/18 06:31 Dose: 25 mg Levetiracetam 500 mg/ (Levetiracetam 250 mg) 750 mg PO BID [facility] Last Admin: 04/09/18 09:24 Dose: 750 mg Levothyroxine Sodium (Synthroid -) 75 mcg PO DAILY@0700 [facility] Last Admin: 04/09/18 06:31 Dose: 75 mcg Lorazepam (Ativan Injection -) 1 mg IVPUSH Q6H PRN PRN Reason: seizure activity Metoprolol Succinate (Toprol Xl -) 100 mg PO DAILY [facility] Last Admin: 04/09/18 09:27 Dose: Not Given Rosuvastatin Calcium (Crestor -) 10 mg PO HS [facility] Last Admin: 04/08/18 21:11 Dose: 10 mg Silver Sulfadiazine (Silvadene -) 1 applic TP DAILY [facility] Last Admin: 04/09/18 09:25 Dose: 1 applic Sitagliptin Phosphate (Januvia -) 50 mg PO DAILY@0700 [facility] Last Admin: 04/09/18 06:31 Dose: 50 mg Sodium Chloride ([place] Nasal [place] -) 1 spray NS TID [facility] Last Admin: 04/09/18 06:32 Dose: Not Given Tamsulosin HCl (Flomax -) 0.8 mg PO DAILY@0830 [facility] Last Admin: 04/09/18 09:24 Dose: 0.8 mg Valsartan (Diovan -) 320 mg PO DAILY [facility] Last Admin: 04/09/18 09:24 Dose: 320 mg - Objective Vital Signs: Vital Signs Temperature 98.8 F 04/09/18 05:19 Pulse Rate 52 L 04/09/18 05:19 Respiratory Rate 21 H 04/09/18 05:19 Blood Pressure 148/81 04/09/18 05:19 O2 Sat by Pulse Oximetry (%) 95 04/08/18 22:00 Constitutional: Yes: No Distress Eyes: Yes: WNL HENT: Yes: WNL Neck: Yes: WNL Cardiovascular: Yes: Regular Rate and Rhythm Respiratory: Yes: Diminished Gastrointestinal: Yes: Abdomen, Obese Genitourinary: Yes: Incontinence Musculoskeletal: Yes: Muscle Weakness Extremities: Yes: Deformity Edema: Yes Edema: LLE: Trace, RLE: Trace Wound/Incision: Yes: Other Neurological: Yes: Pre-Existing Deficit, Weakness ...Motor Strength: LUE, LLE Labs: CBC, BMP 04/08/18 05:30 04/08/18 05:30 INR, PTT INR 1.23 (0.83-1.09) H 04/06/18 17:53 Problem List - Problems (1) BPH (benign prostatic hyperplasia) Code(s): N40.0 - BENIGN PROSTATIC HYPERPLASIA WITHOUT LOWER URINRY TRACT SYMP (2) Seizure Code(s): R56.9 - UNSPECIFIED CONVULSIONS (3) Afib Code(s): I48.91 - UNSPECIFIED ATRIAL FIBRILLATION Qualifiers: Atrial fibrillation type: paroxysmal Qualified Code(s): I48.0 - Paroxysmal atrial fibrillation (4) Basal ganglia hemorrhage Code(s): I61.0 - NONTRAUMATIC INTCRBL HEMORRHAGE IN HEMISPHERE, SUBCORTICAL (5) CAD (coronary artery disease) Code(s): I25.10 - ATHSCL HEART DISEASE OF [place] CORONARY ARTERY W/O ANG PCTRS Qualifiers: Coronary Disease-Associated Artery/Lesion type: [place] artery [place] vs. transplanted heart: [place] heart Associated angina: with unspecified angina Qualified Code(s): I25.119 - Atherosclerotic heart disease of [place] coronary artery with unspecified angina pectoris (6) Cerebrovascular disease Code(s): I67.9 - CEREBROVASCULAR DISEASE, UNSPECIFIED (7) Diabetes mellitus Code(s): E11.9 - TYPE 2 DIABETES MELLITUS WITHOUT COMPLICATIONS Qualifiers: Diabetes mellitus type: type 2 (8) Hypertension Code(s): I10 - ESSENTIAL (PRIMARY) HYPERTENSION Qualifiers: Hypertension type: essential hypertension Qualified Code(s): I10 - Essential (primary) hypertension Assessment/Plan NEURO CHECKS AND SEIZURE PRECAUTIONS TOXIC METABOLIC ENCEPHALOPATHY CHECK UA WITH C&S KEPPRA AND ATIVAN CONTINUE HTN CONTROLLED/AFIB ON XARELTO DM CHECK BGM SSI FLOMAX CONTINUE SWALLOW EVAL OOB TO CHAIR IF POSSIBLE CHECK BMP/MG TODAY
--- NOTE | 2018-04-09 16:51 | PN ---
Progress Note (short form) - Note Progress Note: Chief Complaint: Events noted, notes reviewed, denies any chest pain or dyspnea History of Present Illness: Seen and examined on telemetry. Events noted, notes reviewed, denies any chest pain or dyspnea - Current Medication List Current Medications: Current Medications Acetaminophen (Tylenol -) 650 mg PO Q6HPO [facility] Last Admin: 04/09/18 14:39 Dose: 650 mg Amlodipine Besylate (Norvasc -) 10 mg PO DAILY [facility] Last Admin: 04/09/18 09:24 Dose: 10 mg Apixaban (Eliquis -) 5 mg PO BID [facility] Last Admin: 04/09/18 09:24 Dose: 5 mg Artificial Tears (Artificial Tears) 2 drop OD QID [facility] Last Admin: 04/09/18 14:38 Dose: 2 drop Docusate Sodium (Colace -) 100 mg PO TID [facility] Last Admin: 04/09/18 14:40 Dose: 100 mg Ferrous Sulfate (Feosol -) 325 mg PO DAILY [facility] Last Admin: 04/09/18 09:24 Dose: 325 mg Hydralazine HCl (Apresoline -) 25 mg PO Q6HPO [facility] Last Admin: 04/09/18 14:38 Dose: 25 mg Levetiracetam 500 mg/ (Levetiracetam 250 mg) 750 mg PO BID [facility] Last Admin: 04/09/18 09:24 Dose: 750 mg Levothyroxine Sodium (Synthroid -) 75 mcg PO DAILY@0700 [facility] Last Admin: 04/09/18 06:31 Dose: 75 mcg Lorazepam (Ativan Injection -) 1 mg IVPUSH Q6H PRN PRN Reason: seizure activity Metoprolol Succinate (Toprol Xl -) 100 mg PO DAILY [facility] Last Admin: 04/09/18 09:27 Dose: Not Given Rosuvastatin Calcium (Crestor -) 10 mg PO HS [facility] Last Admin: 04/08/18 21:11 Dose: 10 mg Silver Sulfadiazine (Silvadene -) 1 applic TP DAILY [facility] Last Admin: 04/09/18 09:25 Dose: 1 applic Sitagliptin Phosphate (Januvia -) 50 mg PO DAILY@0700 [facility] Last Admin: 04/09/18 06:31 Dose: 50 mg Sodium Chloride ([place] Nasal [place] -) 1 spray NS TID [facility] Last Admin: 04/09/18 14:40 Dose: 1 sprays Tamsulosin HCl (Flomax -) 0.8 mg PO DAILY@0830 [facility] Last Admin: 04/09/18 09:24 Dose: 0.8 mg Valsartan (Diovan -) 320 mg PO DAILY [facility] Last Admin: 04/09/18 09:24 Dose: 320 mg Review of Systems Cardiovascular: As noted above Respiratory: denies: As noted above Gastrointestinal: denies: Nausea, Vomiting, Diarrhea, Constipation or Abdominal Discomfort Musculoskeletal: No Symptoms Reported Endocrine: No Symptoms Reported - Objective Vital Signs: Last Vital Signs Temp Pulse Resp BP Pulse Ox 98.2 F 69 20 162/98 97 04/09/18 14:00 04/09/18 14:00 04/09/18 14:00 04/09/18 14:00 04/09/18 10:00 Intake & Output 04/06/18 04/07/18 04/08/18 04/09/18 23:59 23:59 23:59 23:59 Intake Total 380 470 670 Balance 380 470 670 Weight 230 lb 194 lb 12.8 oz 194 lb Constitutional: No Distress, Calm, Thin Neck: Supple Negative JVD Cardiovascular: S1 S2 Regular Rate and Rhythm Respiratory: Diminished Breath Sounds Bilaterally Gastrointestinal: Soft Benign Normal Bowel Sounds Ext: No Edema Labs: CBC, BMP 04/08/18 05:30 04/08/18 05:30 Hepatic Panel Total Bilirubin 0.4 mg/dL (0.2-1) 04/08/18 05:30 AST 18 U/L (15-37) 04/08/18 05:30 ALT 25 U/L (13-61) 04/08/18 05:30 Alkaline Phosphatase 96 U/L (45-117) 04/08/18 05:30 Albumin 2.6 g/dl (3.4-5.0) L 04/08/18 05:30 INR, PTT INR 1.23 (0.83-1.09) H 04/06/18 17:53 Assessment/Plan ASSESSMENT: 1. Seizure disorder 2. CAD angina pectoris with evidence of demand ischemia 3. Diastolic LV dysfunction with clinical class 0 NYHA classification LV failure 4. PAF with [id number] score 5 on A/C 5. HTN, labile blood pressure 6. DM 7. Hypercholesterolemia 8. History of CVA 9. Cerebral aneurysm post endo-clip 10. Hypothyroidism 11. Post right nephrectomy PLAN: 1. Continue Toprol XL and titrate as needed 2. Continue Diovan 3. Continue Norvasc 4. Continue Hydralazine and titrate as needed 5. Continue Crestor 6. Continue Romario Washington MD
[2018-04-09] MEDS: hydrALAZINE HCL 50 MG TABLET (FP) PO SCH (23:32)
[2018-04-09] MEDS: ROSUVASTATIN CA 10 MG TABLET (FP) PO SCH (23:32)
[2018-04-10] MEDS: DOCUSATE SODIUM 100 MG CAPSULE (FP) PO SCH ×3 (06:54→21:00)
[2018-04-10] MEDS: LEVOTHYROXINE NA 75 MCG TABLET (FP) PO SCH (06:54)
[2018-04-10] MEDS: sitaGLIPtin PHOSPHATE 50 MG TABLET PO SCH (06:54)
[2018-04-10] MEDS: hydrALAZINE HCL 50 MG TABLET (FP) PO SCH ×3 (06:54→21:00)
[2018-04-10] MEDS: SODIUM CHLORIDE NASAL SPRAY 44 ML BOTTLE NS SCH ×3 (06:54→20:59)
[2018-04-10] MEDS: ACETAMINOPHEN 325 MG TABLET (FP) PO SCH ×3 (06:55→17:57)
--- NOTE | 2018-04-10 08:07 | PN ---
Progress Note (short form) - Note Progress Note: Chief Complaint: Events noted, notes reviewed, denies any chest pain or dyspnea History of Present Illness: Seen and examined on telemetry. Events noted, notes reviewed, denies any chest pain or dyspnea - Current Medication List Current Medications: Current Medications Acetaminophen (Tylenol -) 650 mg PO Q6HPO [facility] Last Admin: 04/10/18 06:55 Dose: Not Given Amlodipine Besylate (Norvasc -) 10 mg PO DAILY [facility] Last Admin: 04/09/18 09:24 Dose: 10 mg Apixaban (Eliquis -) 5 mg PO BID [facility] Last Admin: 04/09/18 23:33 Dose: 5 mg Artificial Tears (Artificial Tears) 2 drop OD QID [facility] Last Admin: 04/09/18 23:58 Dose: 2 drop Docusate Sodium (Colace -) 100 mg PO TID [facility] Last Admin: 04/10/18 06:54 Dose: 100 mg Ferrous Sulfate (Feosol -) 325 mg PO DAILY [facility] Last Admin: 04/09/18 09:24 Dose: 325 mg Hydralazine HCl (Apresoline -) 50 mg PO TID [facility] Last Admin: 04/10/18 06:54 Dose: 50 mg Levetiracetam 500 mg/ (Levetiracetam 250 mg) 750 mg PO BID [facility] Last Admin: 04/09/18 23:32 Dose: 750 mg Levothyroxine Sodium (Synthroid -) 75 mcg PO DAILY@0700 [facility] Last Admin: 04/10/18 06:54 Dose: 75 mcg Lorazepam (Ativan Injection -) 1 mg IVPUSH Q6H PRN PRN Reason: seizure activity Metoprolol Succinate (Toprol Xl -) 150 mg PO DAILY [facility] Rosuvastatin Calcium (Crestor -) 10 mg PO HS [facility] Last Admin: 04/09/18 23:32 Dose: 10 mg Silver Sulfadiazine (Silvadene -) 1 applic TP DAILY [facility] Last Admin: 04/09/18 09:25 Dose: 1 applic Sitagliptin Phosphate (Januvia -) 50 mg PO DAILY@0700 [facility] Last Admin: 04/10/18 06:54 Dose: 50 mg Sodium Chloride ([place] Nasal [place] -) 1 spray NS TID [facility] Last Admin: 04/10/18 06:54 Dose: Not Given Tamsulosin HCl (Flomax -) 0.8 mg PO DAILY@0830 [facility] Last Admin: 04/09/18 09:24 Dose: 0.8 mg Valsartan (Diovan -) 320 mg PO DAILY [facility] Last Admin: 04/09/18 09:24 Dose: 320 mg Review of Systems Cardiovascular: As noted above Respiratory: denies: As noted above Gastrointestinal: denies: Nausea, Vomiting, Diarrhea, Constipation or Abdominal Discomfort Musculoskeletal: No Symptoms Reported Endocrine: No Symptoms Reported - Objective Vital Signs: Last Vital Signs Temp Pulse Resp BP Pulse Ox 98.4 F 51 L 18 155/87 96 04/10/18 02:00 04/10/18 06:00 04/10/18 07:46 04/10/18 06:00 04/10/18 07:46 Intake & Output 04/07/18 04/08/18 04/09/18 04/10/18 23:59 23:59 23:59 23:59 Intake Total 395 244 0308 Balance 370 084 0755 Weight 194 lb 12.8 oz 194 lb Constitutional: No Distress, Calm, Thin Neck: Supple Negative JVD Cardiovascular: S1 S2 Regular Rate and Rhythm Respiratory: Diminished Breath Sounds Bilaterally Gastrointestinal: Soft Benign Normal Bowel Sounds Ext: No Edema Labs: CBC, BMP 04/08/18 05:30 04/08/18 05:30 Hepatic Panel Total Bilirubin 0.4 mg/dL (0.2-1) 04/08/18 05:30 AST 18 U/L (15-37) 04/08/18 05:30 ALT 25 U/L (13-61) 04/08/18 05:30 Alkaline Phosphatase 96 U/L (45-117) 04/08/18 05:30 Albumin 2.6 g/dl (3.4-5.0) L 04/08/18 05:30 INR, PTT INR 1.23 (0.83-1.09) H 04/06/18 17:53 Assessment/Plan ASSESSMENT: 1. Seizure disorder 2. CAD angina pectoris with evidence of demand ischemia 3. Diastolic LV dysfunction with clinical class 0 NYHA classification LV failure 4. PAF with [id number] score 5 on A/C/Eliquis 5. HTN, labile blood pressure not at goal 6. DM 7. Hypercholesterolemia 8. History of CVA 9. Cerebral aneurysm post endo-clip 10. Hypothyroidism 11. Post right nephrectomy PLAN: 1. Continue Toprol XL 2. Continue Diovan 3. Continue Norvasc 4. Continue Hydralazine and titrate as needed 5. Continue Crestor 6. Continue Romario Washington MD
[2018-04-10] MEDS ORDERED: levETIRAcetam 250 MG TABLET (FP) PO ONE ×2 (09:25→20:37)
[2018-04-10] MEDS ORDERED: levETIRAcetam 500 MG TABLET (FP) PO ONE ×2 (09:26→20:37)
[2018-04-10] MEDS: FERROUS SO4 325 MG TABLET (FP) PO SCH (09:34)
[2018-04-10] MEDS: VALSARTAN 160 MG TABLET (UD) PO SCH (09:34)
[2018-04-10] MEDS: amLODIPine BESYLATE 10 MG TABLET (FP) PO SCH (09:34)
[2018-04-10] MEDS: TAMSULOSIN HCL 0.4 MG CAP PO SCH (09:34)
[2018-04-10] MEDS: SILVER SULFADIAZINE 1% TOP CREAM 50 GM JAR TP SCH (09:35)
[2018-04-10] MEDS: ARTIFICIAL TEARS (POLYVINYL ALCOHOL) OPTH DROPS OD SCH ×4 (09:35→20:59)
[2018-04-10] MEDS: APIXABAN 5 MG TABLET PO SCH ×2 (09:35→21:00)
--- NOTE | 2018-04-10 11:17 | PN ---
Progress Note, Physician Chief Complaint: AWAKE ALERT EVENTS AND NOTES REVIEWED IN BED SHARES NO COMPLAINTS - Current Medication List Current Medications: Active Medications Acetaminophen (Tylenol -) 650 mg PO Q6HPO [facility] Last Admin: 04/10/18 06:55 Dose: Not Given Amlodipine Besylate (Norvasc -) 10 mg PO DAILY [facility] Last Admin: 04/10/18 09:34 Dose: 10 mg Apixaban (Eliquis -) 5 mg PO BID [facility] Last Admin: 04/10/18 09:35 Dose: 5 mg Artificial Tears (Artificial Tears) 2 drop OD QID [facility] Last Admin: 04/10/18 09:35 Dose: 2 drop Docusate Sodium (Colace -) 100 mg PO TID [facility] Last Admin: 04/10/18 06:54 Dose: 100 mg Ferrous Sulfate (Feosol -) 325 mg PO DAILY [facility] Last Admin: 04/10/18 09:34 Dose: 325 mg Hydralazine HCl (Apresoline -) 50 mg PO TID [facility] Last Admin: 04/10/18 06:54 Dose: 50 mg Levetiracetam 500 mg/ (Levetiracetam 250 mg) 750 mg PO BID [facility] Last Admin: 04/10/18 09:35 Dose: 750 mg Levothyroxine Sodium (Synthroid -) 75 mcg PO DAILY@0700 [facility] Last Admin: 04/10/18 06:54 Dose: 75 mcg Lorazepam (Ativan Injection -) 1 mg IVPUSH Q6H PRN PRN Reason: seizure activity Metoprolol Succinate (Toprol Xl -) 150 mg PO DAILY [facility] Last Admin: 04/10/18 09:35 Dose: 150 mg Rosuvastatin Calcium (Crestor -) 10 mg PO HS [facility] Last Admin: 04/09/18 23:32 Dose: 10 mg Silver Sulfadiazine (Silvadene -) 1 applic TP DAILY [facility] Last Admin: 04/10/18 09:35 Dose: 1 applic Sitagliptin Phosphate (Januvia -) 50 mg PO DAILY@0700 [facility] Last Admin: 04/10/18 06:54 Dose: 50 mg Sodium Chloride ([place] Nasal [place] -) 1 spray NS TID [facility] Last Admin: 04/10/18 06:54 Dose: Not Given Tamsulosin HCl (Flomax -) 0.8 mg PO DAILY@0830 [facility] Last Admin: 04/10/18 09:34 Dose: 0.8 mg Valsartan (Diovan -) 320 mg PO DAILY [facility] Last Admin: 04/10/18 09:34 Dose: 320 mg - Objective Vital Signs: Vital Signs Temperature 98.4 F 04/10/18 02:00 Pulse Rate 53 L 04/10/18 10:00 Respiratory Rate 18 04/10/18 10:00 Blood Pressure 174/92 H 04/10/18 10:00 O2 Sat by Pulse Oximetry (%) 96 04/10/18 07:46 Constitutional: Yes: Mild Distress Cardiovascular: Yes: Pulse Irregular Respiratory: Yes: Diminished Gastrointestinal: Yes: Soft Genitourinary: Yes: Incontinence Musculoskeletal: Yes: Muscle Weakness Neurological: Yes: Pre-Existing Deficit Labs: CBC, BMP 04/08/18 05:30 04/08/18 05:30 INR, PTT INR 1.23 (0.83-1.09) H 04/06/18 17:53 Problem List - Problems (1) BPH (benign prostatic hyperplasia) Code(s): N40.0 - BENIGN PROSTATIC HYPERPLASIA WITHOUT LOWER URINRY TRACT SYMP (2) Seizure Code(s): R56.9 - UNSPECIFIED CONVULSIONS (3) Afib Code(s): I48.91 - UNSPECIFIED ATRIAL FIBRILLATION Qualifiers: Atrial fibrillation type: paroxysmal Qualified Code(s): I48.0 - Paroxysmal atrial fibrillation (4) Basal ganglia hemorrhage Code(s): I61.0 - NONTRAUMATIC INTCRBL HEMORRHAGE IN HEMISPHERE, SUBCORTICAL (5) CAD (coronary artery disease) Code(s): I25.10 - ATHSCL HEART DISEASE OF [place] CORONARY ARTERY W/O ANG PCTRS Qualifiers: Coronary Disease-Associated Artery/Lesion type: [place] artery [place] vs. transplanted heart: [place] heart Associated angina: with unspecified angina Qualified Code(s): I25.119 - Atherosclerotic heart disease of [place] coronary artery with unspecified angina pectoris (6) Cerebrovascular disease Code(s): I67.9 - CEREBROVASCULAR DISEASE, UNSPECIFIED (7) Diabetes mellitus Code(s): E11.9 - TYPE 2 DIABETES MELLITUS WITHOUT COMPLICATIONS Qualifiers: Diabetes mellitus type: type 2 (8) Hypertension Code(s): I10 - ESSENTIAL (PRIMARY) HYPERTENSION Qualifiers: Hypertension type: essential hypertension Qualified Code(s): I10 - Essential (primary) hypertension Assessment/Plan NEURO CHECKS AND SEIZURE PRECAUTIONS TOXIC METABOLIC ENCEPHALOPATHY CHECK UA WITH C&S KEPPRA AND ATIVAN CONTINUE HTN CONTROLLED/AFIB ON XARELTO DM CHECK BGM SSI FLOMAX CONTINUE SWALLOW EVAL OOB TO CHAIR IF POSSIBLE CHECK BMP/MG TODAY
[2018-04-10] MEDS ORDERED: POTASSIUM CHLORIDE TABS 10 MEQ TABLET.ER (FP) PO ONE (11:18)
[2018-04-10] MEDS ORDERED: KCL 10 MEQ IVPB 10 MEQ/100 ML INFUS.BAG IVPB SCH (11:30)
[2018-04-10] MEDS: ROSUVASTATIN CA 10 MG TABLET (FP) PO SCH (21:00)
[2018-04-11] MEDS: SODIUM CHLORIDE NASAL SPRAY 44 ML BOTTLE NS SCH ×3 (06:18→22:09)
[2018-04-11] MEDS: hydrALAZINE HCL 50 MG TABLET (FP) PO SCH ×3 (06:19→22:09)
[2018-04-11] MEDS: LEVOTHYROXINE NA 75 MCG TABLET (FP) PO SCH (06:19)
[2018-04-11] MEDS: sitaGLIPtin PHOSPHATE 50 MG TABLET PO SCH (06:19)
[2018-04-11] MEDS: DOCUSATE SODIUM 100 MG CAPSULE (FP) PO SCH ×3 (06:19→22:08)
[2018-04-11] MEDS: ACETAMINOPHEN 325 MG TABLET (FP) PO SCH ×4 (06:20→18:57)
[2018-04-11] MEDS ORDERED: levETIRAcetam 250 MG TABLET (FP) PO ONE ×2 (09:26→22:06)
[2018-04-11] MEDS ORDERED: levETIRAcetam 500 MG TABLET (FP) PO ONE ×2 (09:27→22:06)
--- NOTE | 2018-04-11 09:30 | PN ---
Progress Note, Physician History of Present Illness: Being fed breakfast, no further seizure recurrence. - Current Medication List Current Medications: Active Medications Acetaminophen (Tylenol -) 650 mg PO Q6HPO [facility] Last Admin: 04/11/18 06:20 Dose: 650 mg Amlodipine Besylate (Norvasc -) 10 mg PO DAILY [facility] Last Admin: 04/10/18 09:34 Dose: 10 mg Apixaban (Eliquis -) 5 mg PO BID [facility] Last Admin: 04/10/18 21:00 Dose: 5 mg Artificial Tears (Artificial Tears) 2 drop OD QID [facility] Last Admin: 04/10/18 20:59 Dose: 2 drop Docusate Sodium (Colace -) 100 mg PO TID [facility] Last Admin: 04/11/18 06:19 Dose: 100 mg Ferrous Sulfate (Feosol -) 325 mg PO DAILY [facility] Last Admin: 04/10/18 09:34 Dose: 325 mg Hydralazine HCl (Apresoline -) 50 mg PO TID [facility] Last Admin: 04/11/18 06:19 Dose: 50 mg Levetiracetam 500 mg/ (Levetiracetam 250 mg) 750 mg PO BID [facility] Last Admin: 04/10/18 20:59 Dose: 750 mg Levothyroxine Sodium (Synthroid -) 75 mcg PO DAILY@0700 [facility] Last Admin: 04/11/18 06:19 Dose: 75 mcg Lorazepam (Ativan Injection -) 1 mg IVPUSH Q6H PRN PRN Reason: seizure activity Metoprolol Succinate (Toprol Xl -) 150 mg PO DAILY [facility] Last Admin: 04/10/18 09:35 Dose: 150 mg Rosuvastatin Calcium (Crestor -) 10 mg PO HS [facility] Last Admin: 04/10/18 21:00 Dose: 10 mg Silver Sulfadiazine (Silvadene -) 1 applic TP DAILY [facility] Last Admin: 04/10/18 09:35 Dose: 1 applic Sitagliptin Phosphate (Januvia -) 50 mg PO DAILY@0700 [facility] Last Admin: 04/11/18 06:19 Dose: 50 mg Sodium Chloride ([place] Nasal [place] -) 1 spray NS TID [facility] Last Admin: 04/11/18 06:18 Dose: Not Given Tamsulosin HCl (Flomax -) 0.8 mg PO DAILY@0830 [facility] Last Admin: 04/10/18 09:34 Dose: 0.8 mg Valsartan (Diovan -) 320 mg PO DAILY [facility] Last Admin: 04/10/18 09:34 Dose: 320 mg - Objective Vital Signs: Vital Signs Temperature 99.3 F 04/11/18 02:16 Pulse Rate 64 04/11/18 02:16 Respiratory Rate 20 04/11/18 02:16 Blood Pressure 154/73 04/11/18 02:16 O2 Sat by Pulse Oximetry (%) 94 L 04/10/18 21:00 Constitutional: Yes: No Distress, Calm Neck: Yes: Supple Cardiovascular: Yes: Regular Rate and Rhythm Respiratory: Yes: Regular, CTA Bilaterally Gastrointestinal: Yes: Normal Bowel Sounds, Soft Edema: No Neurological: Yes: Pre-Existing Deficit (Right hemiparesis), Seizure Labs: CBC, BMP 04/08/18 05:30 04/08/18 05:30 INR, PTT INR 1.23 (0.83-1.09) H 04/06/18 17:53 Problem List - Problems (1) Demand ischemia Code(s): I24.8 - OTHER FORMS OF ACUTE ISCHEMIC HEART DISEASE (2) Seizure Code(s): R56.9 - UNSPECIFIED CONVULSIONS (3) Afib Code(s): I48.91 - UNSPECIFIED ATRIAL FIBRILLATION Qualifiers: Atrial fibrillation type: paroxysmal Qualified Code(s): I48.0 - Paroxysmal atrial fibrillation (4) CAD (coronary artery disease) Code(s): I25.10 - ATHSCL HEART DISEASE OF [place] CORONARY ARTERY W/O ANG PCTRS Qualifiers: Coronary Disease-Associated Artery/Lesion type: [place] artery [place] vs. transplanted heart: [place] heart Associated angina: with unspecified angina Qualified Code(s): I25.119 - Atherosclerotic heart disease of [place] coronary artery with unspecified angina pectoris (5) Cerebral aneurysm Code(s): I67.1 - CEREBRAL ANEURYSM, NONRUPTURED (6) Cerebrovascular disease Code(s): I67.9 - CEREBROVASCULAR DISEASE, UNSPECIFIED (7) Diabetes mellitus Code(s): E11.9 - TYPE 2 DIABETES MELLITUS WITHOUT COMPLICATIONS Qualifiers: Diabetes mellitus type: type 2 (8) Hypertension Code(s): I10 - ESSENTIAL (PRIMARY) HYPERTENSION Qualifiers: Hypertension type: essential hypertension Qualified Code(s): I10 - Essential (primary) hypertension (9) Hypothyroid Code(s): E03.9 - HYPOTHYROIDISM, UNSPECIFIED Qualifiers: Hypothyroidism type: unspecified Qualified Code(s): E03.9 - Hypothyroidism , unspecified Assessment/Plan 1. Seizure disorder 2. CAD angina pectoris with evidence of demand ischemia 3. Diastolic LV dysfunction with clinical class 0 NYHA classification LV failure 4. PAF with [id number] score 5 on A/C/Eliquis 5. HTN, labile blood pressure 6. DM 7. Hypercholesterolemia 8. History of CVA 9. Cerebral aneurysm post endo-clip 10. Hypothyroidism 11. Post right nephrectomy PLAN: 1. Neuro input appreciated, tolerated Keppra, f/u EEG, trops plateaued, replete K 2. Continue Metoprolol ER 150 qd, Diovan 320 qd, Norvasc 10 qd, hydralazine 50 tid 3. Continue Crestor 10 qhs and Eliquis 5 mg BID 4. D/c telemetry 5. F/u in office
[2018-04-11] MEDS: FERROUS SO4 325 MG TABLET (FP) PO SCH (09:41)
[2018-04-11] MEDS: APIXABAN 5 MG TABLET PO SCH ×2 (09:41→22:08)
[2018-04-11] MEDS: amLODIPine BESYLATE 10 MG TABLET (FP) PO SCH (09:41)
[2018-04-11] MEDS: VALSARTAN 160 MG TABLET (UD) PO SCH (09:41)
[2018-04-11] MEDS: TAMSULOSIN HCL 0.4 MG CAP PO SCH (09:42)
[2018-04-11] MEDS: ARTIFICIAL TEARS (POLYVINYL ALCOHOL) OPTH DROPS OD SCH ×4 (09:43→22:09)
[2018-04-11] MEDS: SILVER SULFADIAZINE 1% TOP CREAM 50 GM JAR TP SCH (09:43)
--- NOTE | 2018-04-11 16:52 | PN ---
Progress Note, Physician Chief Complaint: Seizures A-fib History of Present Illness: Previous notes and events reviewed awake and alert NAD no seizure activity reported return to SNF after swallow eval - Current Medication List Current Medications: Active Medications Acetaminophen (Tylenol -) 650 mg PO Q6HPO [facility] Last Admin: 04/11/18 13:53 Dose: 650 mg Amlodipine Besylate (Norvasc -) 10 mg PO DAILY [facility] Last Admin: 04/11/18 09:41 Dose: 10 mg Apixaban (Eliquis -) 5 mg PO BID [facility] Last Admin: 04/11/18 09:41 Dose: 5 mg Artificial Tears (Artificial Tears) 2 drop OD QID [facility] Last Admin: 04/11/18 13:54 Dose: 2 drop Docusate Sodium (Colace -) 100 mg PO TID [facility] Last Admin: 04/11/18 13:54 Dose: 100 mg Ferrous Sulfate (Feosol -) 325 mg PO DAILY [facility] Last Admin: 04/11/18 09:41 Dose: 325 mg Hydralazine HCl (Apresoline -) 50 mg PO TID [facility] Last Admin: 04/11/18 13:54 Dose: 50 mg Levetiracetam 500 mg/ (Levetiracetam 250 mg) 750 mg PO BID [facility] Last Admin: 04/11/18 09:41 Dose: 750 mg Levothyroxine Sodium (Synthroid -) 75 mcg PO DAILY@0700 [facility] Last Admin: 04/11/18 06:19 Dose: 75 mcg Lorazepam (Ativan Injection -) 1 mg IVPUSH Q6H PRN PRN Reason: seizure activity Metoprolol Succinate (Toprol Xl -) 150 mg PO DAILY [facility] Last Admin: 04/11/18 09:42 Dose: 150 mg Rosuvastatin Calcium (Crestor -) 10 mg PO HS [facility] Last Admin: 04/10/18 21:00 Dose: 10 mg Silver Sulfadiazine (Silvadene -) 1 applic TP DAILY [facility] Last Admin: 04/11/18 09:43 Dose: 1 applic Sitagliptin Phosphate (Januvia -) 50 mg PO DAILY@0700 [facility] Last Admin: 04/11/18 06:19 Dose: 50 mg Sodium Chloride ([place] Nasal [place] -) 1 spray NS TID [facility] Last Admin: 04/11/18 13:54 Dose: Not Given Tamsulosin HCl (Flomax -) 0.8 mg PO DAILY@0830 [facility] Last Admin: 04/11/18 09:42 Dose: 0.8 mg Valsartan (Diovan -) 320 mg PO DAILY [facility] Last Admin: 04/11/18 09:41 Dose: 320 mg - Objective Vital Signs: Vital Signs Temperature 98.8 F 04/11/18 16:10 Pulse Rate 78 04/11/18 16:10 Respiratory Rate 68 H 04/11/18 16:10 Blood Pressure 164/86 04/11/18 16:10 O2 Sat by Pulse Oximetry (%) 94 L 04/11/18 09:00 Constitutional: Yes: No Distress, Calm Eyes: Yes: Conjunctiva Clear HENT: Yes: Atraumatic Cardiovascular: Yes: Regular Rate and Rhythm Respiratory: Yes: Regular, CTA Bilaterally Gastrointestinal: Yes: Normal Bowel Sounds, Soft Genitourinary: Yes: Incontinence Musculoskeletal: Yes: Muscle Weakness Edema: No Neurological: Yes: Alert, Pre-Existing Deficit Psychiatric: Yes: Alert Labs: CBC, BMP 04/08/18 05:30 04/08/18 05:30 INR, PTT INR 1.23 (0.83-1.09) H 04/06/18 17:53 Problem List - Problems (1) Seizure Assessment/Plan: -neurology on board -continue with keppra 750mg bid -follow up with neurologist outpatient--EEG? Code(s): R56.9 - UNSPECIFIED CONVULSIONS (2) Afib Assessment/Plan: -cardiology on board -continue with eliquis and metoprolol Code(s): I48.91 - UNSPECIFIED ATRIAL FIBRILLATION Qualifiers: Atrial fibrillation type: paroxysmal Qualified Code(s): I48.0 - Paroxysmal atrial fibrillation (3) CAD (coronary artery disease) Assessment/Plan: -cardiology on board -continue crestor Code(s): I25.10 - ATHSCL HEART DISEASE OF [place] CORONARY ARTERY W/O ANG PCTRS Qualifiers: Coronary Disease-Associated Artery/Lesion type: [place] artery [place] vs. transplanted heart: [place] heart Associated angina: with unspecified angina Qualified Code(s): I25.119 - Atherosclerotic heart disease of [place] coronary artery with unspecified angina pectoris (4) Diabetes mellitus Assessment/Plan: -BGM ACHS -diabetic diet -continue with sitagliptan daily Code(s): E11.9 - TYPE 2 DIABETES MELLITUS WITHOUT COMPLICATIONS Qualifiers: Diabetes mellitus type: type 2 (5) Hypertension Assessment/Plan: -low Na diet -continue with diovan, amlodipine Code(s): I10 - ESSENTIAL (PRIMARY) HYPERTENSION Qualifiers: Hypertension type: essential hypertension Qualified Code(s): I10 - Essential (primary) hypertension Assessment/Plan see problem list dvt
[2018-04-11] MEDS: ROSUVASTATIN CA 10 MG TABLET (FP) PO SCH (22:07)
[2018-04-12] MEDS: ACETAMINOPHEN 325 MG TABLET (FP) PO SCH ×4 (00:04→17:46)
[2018-04-12] MEDS: hydrALAZINE HCL 50 MG TABLET (FP) PO SCH ×2 (06:07→13:43)
[2018-04-12] MEDS: LEVOTHYROXINE NA 75 MCG TABLET (FP) PO SCH (06:07)
[2018-04-12] MEDS: sitaGLIPtin PHOSPHATE 50 MG TABLET PO SCH (06:07)
[2018-04-12] MEDS: DOCUSATE SODIUM 100 MG CAPSULE (FP) PO SCH ×2 (06:07→13:43)
[2018-04-12] MEDS: SODIUM CHLORIDE NASAL SPRAY 44 ML BOTTLE NS SCH ×2 (06:08→13:44)
[2018-04-12 07:52] LABS: HEMATOCRIT 33.8 % (35.4-49); HEMOGLOBIN 11.1 GM/dL (11.7-16.9); MCHC 32.9 g/dl (32.0-35.9); MEAN PLT VOLUME 7.1 fl (7.5-11.1); PLATELET COUNT 150 K/MM3 (134-434); RBC 4.83 M/mm3 (4.00-5.60); RDW 16.4 % (11.9-15.9); WHITE BLOOD COUNT 4.6 K/mm3 (4.0-10.0)
[2018-04-12] MEDS: TAMSULOSIN HCL 0.4 MG CAP PO SCH (08:14)
[2018-04-12 08:38] LABS: ALBUMIN 2.7 g/dl (3.4-5.0); ALK PHOS 94 U/L (45-117); ANION GAP 7 MMOL/L (8-16); BILIRUBIN,TOTAL 0.4 mg/dL (0.2-1); BLOOD UREA NITROGEN 25 mg/dL (7-18); CALCIUM 7.7 mg/dL (8.5-10.1); CHLORIDE 105 mmol/L (98-107); CO2 31 mmol/L (21-32); CREATININE 1.2 mg/dL (0.55-1.3); GLUCOSE,RANDOM 97 mg/dL (74-106); POTASSIUM 3.2 mmol/L (3.5-5.1); SGOT/AST 18 U/L (15-37); SGPT/ALT 22 U/L (13-61); SODIUM 142 mmol/L (136-145); TOT PROT 6.7 g/dl (6.4-8.2)
[2018-04-12] MEDS ORDERED: levETIRAcetam 250 MG TABLET (FP) PO ONE (09:17)
[2018-04-12] MEDS ORDERED: levETIRAcetam 500 MG TABLET (FP) PO ONE (09:17)
[2018-04-12] MEDS: FERROUS SO4 325 MG TABLET (FP) PO SCH (09:44)
[2018-04-12] MEDS: ARTIFICIAL TEARS (POLYVINYL ALCOHOL) OPTH DROPS OD SCH ×3 (09:44→17:49)
[2018-04-12] MEDS: VALSARTAN 160 MG TABLET (UD) PO SCH (09:44)
[2018-04-12] MEDS: APIXABAN 5 MG TABLET PO SCH (09:44)
[2018-04-12] MEDS: amLODIPine BESYLATE 10 MG TABLET (FP) PO SCH (09:45)
[2018-04-12] MEDS: SILVER SULFADIAZINE 1% TOP CREAM 50 GM JAR TP SCH (09:45)
--- NOTE | 2018-04-12 11:04 | PN ---
Progress Note, Physician Chief Complaint: Afib Seizures History of Present Illness: NAD in bed Eating well, no coughing on swallow CXR unremarkable - Current Medication List Current Medications: Active Medications Acetaminophen (Tylenol -) 650 mg PO Q6HPO [facility] Last Admin: 04/12/18 06:07 Dose: 650 mg Amlodipine Besylate (Norvasc -) 10 mg PO DAILY [facility] Last Admin: 04/12/18 09:45 Dose: 10 mg Apixaban (Eliquis -) 5 mg PO BID [facility] Last Admin: 04/12/18 09:44 Dose: 5 mg Artificial Tears (Artificial Tears) 2 drop OD QID [facility] Last Admin: 04/12/18 09:44 Dose: 2 drop Docusate Sodium (Colace -) 100 mg PO TID [facility] Last Admin: 04/12/18 06:07 Dose: 100 mg Ferrous Sulfate (Feosol -) 325 mg PO DAILY [facility] Last Admin: 04/12/18 09:44 Dose: 325 mg Hydralazine HCl (Apresoline -) 50 mg PO TID [facility] Last Admin: 04/12/18 06:07 Dose: 50 mg Levetiracetam 500 mg/ (Levetiracetam 250 mg) 750 mg PO BID [facility] Last Admin: 04/12/18 09:44 Dose: 750 mg Levothyroxine Sodium (Synthroid -) 75 mcg PO DAILY@0700 [facility] Last Admin: 04/12/18 06:07 Dose: 75 mcg Lorazepam (Ativan Injection -) 1 mg IVPUSH Q6H PRN PRN Reason: seizure activity Metoprolol Succinate (Toprol Xl -) 150 mg PO DAILY [facility] Last Admin: 04/12/18 09:45 Dose: 150 mg Rosuvastatin Calcium (Crestor -) 10 mg PO HS [facility] Last Admin: 04/11/18 22:07 Dose: 10 mg Silver Sulfadiazine (Silvadene -) 1 applic TP DAILY [facility] Last Admin: 04/12/18 09:45 Dose: 1 applic Sitagliptin Phosphate (Januvia -) 50 mg PO DAILY@0700 [facility] Last Admin: 04/12/18 06:07 Dose: 50 mg Sodium Chloride ([place] Nasal [place] -) 1 spray NS TID [facility] Last Admin: 04/12/18 06:08 Dose: 1 sprays Tamsulosin HCl (Flomax -) 0.8 mg PO DAILY@0830 [facility] Last Admin: 04/12/18 08:14 Dose: 0.8 mg Valsartan (Diovan -) 320 mg PO DAILY [facility] Last Admin: 04/12/18 09:44 Dose: 320 mg - Objective Vital Signs: Vital Signs Temperature 97.9 F 04/12/18 10:00 Pulse Rate 60 04/12/18 10:00 Respiratory Rate 20 04/12/18 10:00 Blood Pressure 162/98 04/12/18 10:00 O2 Sat by Pulse Oximetry (%) 95 04/12/18 08:33 Constitutional: Yes: Well Nourished, No Distress, Calm Cardiovascular: Yes: Regular Rate and Rhythm Respiratory: Yes: Regular Gastrointestinal: Yes: Normal Bowel Sounds, Soft Genitourinary: Yes: WNL Musculoskeletal: Yes: Muscle Weakness, Other (generalized atrophy) Edema: No Peripheral Pulses WNL: Yes Neurological: Yes: Alert, Pre-Existing Deficit Psychiatric: Yes: Alert Labs: CBC, BMP 04/12/18 07:00 04/12/18 07:00 INR, PTT INR 1.23 (0.83-1.09) H 04/06/18 17:53 Problem List - Problems (1) Afib Assessment/Plan: -cardiology on board -Chronic -Rate controlled -continue with eliquis and metoprolol Code(s): I48.91 - UNSPECIFIED ATRIAL FIBRILLATION Qualifiers: Atrial fibrillation type: paroxysmal Qualified Code(s): I48.0 - Paroxysmal atrial fibrillation (2) Diabetes mellitus Assessment/Plan: -BGM ACHS -diabetic low sodium diet -continue with sitagliptan daily Code(s): E11.9 - TYPE 2 DIABETES MELLITUS WITHOUT COMPLICATIONS Qualifiers: Diabetes mellitus type: type 2 (3) Demand ischemia Code(s): I24.8 - OTHER FORMS OF ACUTE ISCHEMIC HEART DISEASE (4) Seizure Assessment/Plan: -neurology on board -continue with keppra 750mg bid -follow up with neurologist outpatient--EEG Code(s): R56.9 - UNSPECIFIED CONVULSIONS (5) CAD (coronary artery disease) Assessment/Plan: -cardiology on board -continue crestor Code(s): I25.10 - ATHSCL HEART DISEASE OF [place] CORONARY ARTERY W/O ANG PCTRS Qualifiers: Coronary Disease-Associated Artery/Lesion type: [place] artery [place] vs. transplanted heart: [place] heart Associated angina: with unspecified angina Qualified Code(s): I25.119 - Atherosclerotic heart disease of [place] coronary artery with unspecified angina pectoris (6) Hypertension Assessment/Plan: -low Na diet -continue with diovan, amlodipine Code(s): I10 - ESSENTIAL (PRIMARY) HYPERTENSION Qualifiers: Hypertension type: essential hypertension Qualified Code(s): I10 - Essential (primary) hypertension Assessment/Plan See Problem list
--- NOTE | 2018-04-12 11:21 | DS ---
Physical Examination Vital Signs: Vital Signs Temperature 97.9 F 04/12/18 10:00 Pulse Rate 60 04/12/18 10:00 Respiratory Rate 20 04/12/18 10:00 Blood Pressure 162/98 04/12/18 10:00 O2 Sat by Pulse Oximetry (%) 95 04/12/18 08:33 Findings/Remarks: 68 year old male with a significant past medical history of AFIB, CVA (2012), HTN, HLD, cerebral aneurysm (2012) and [place] (2014), CKD, diabetes II, thyroid disease, hemiplegia and hemiparesis 2/ right basal ganglia bleed (2015) and who presents to the Emergency Department after a seizure episode on the afternoon of 04/06. As per patient he was in bed at his detention visiting with his when he noted "things in his visual field". I spoke with via phone who endorses patient had generalized shaking for a little over a minute, his eyes rolled back and he had tongue biting which resulted in bleeding from his mouth. denies fecal and urine incontinence (pt was already soiled prior to seizure activity). Pt denies dizziness, chest pain, + shortness of breath after episode. Constitutional: Yes: Well Nourished, No Distress, Calm Cardiovascular: Yes: Regular Rate and Rhythm Respiratory: Yes: Regular Gastrointestinal: Yes: Normal Bowel Sounds, Soft Musculoskeletal: Yes: Muscle Weakness, Other (generalized atrophy) Edema: No Peripheral Pulses WNL: Yes Neurological: Yes: Alert, Pre-Existing Deficit Psychiatric: Yes: Alert Labs: CBC, BMP 04/12/18 07:00 04/12/18 07:00 Discharge Summary Reason For Visit: SEIZURE Current Active Problems BPH (benign prostatic hyperplasia) (Acute) Demand ischemia (Acute) Seizure (Acute) Hospital Course: Laboratory Last Values WBC 4.6 K/mm3 (4.0-10.0) 04/12/18 07:00 RBC 4.83 M/mm3 (4.00-5.60) 04/12/18 07:00 Hgb 11.1 GM/dL (11.7-16.9) L 04/12/18 07:00 Hct 33.8 % (35.4-49) L 04/12/18 07:00 MCV 70.0 fl (80-96) L 04/12/18 07:00 MCH 23.0 pg (25.7-33.7) L 04/12/18 07:00 MCHC 32.9 g/dl (32.0-35.9) 04/12/18 07:00 RDW 16.4 % (11.9-15.9) H 04/12/18 07:00 Plt Count 150 K/MM3 (134-434) 04/12/18 07:00 MPV 7.1 fl (7.5-11.1) L D 04/12/18 07:00 Absolute Neuts (auto) 2.5 K/mm3 (1.5-8.0) 04/08/18 05:30 Neutrophils % 56.7 % (42.8-82.8) D 04/08/18 05:30 Lymphocytes % 30.3 % (8-40) D 04/08/18 05:30 Monocytes % 7.5 % (3.8-10.2) 04/08/18 05:30 Eosinophils % 4.8 % (0-4.5) H D 04/08/18 05:30 Basophils % 0.7 % (0-2.0) 04/08/18 05:30 Nucleated RBC % 0 % (0-0) 04/08/18 05:30 PT with INR 14.50 SEC (9.7-13.0) H 04/06/18 17:53 INR 1.23 (0.83-1.09) H 04/06/18 17:53 Sodium 142 mmol/L (136-145) 04/12/18 07:00 Potassium 3.2 mmol/L (3.5-5.1) L 04/12/18 07:00 Chloride 105 mmol/L (98-107) 04/12/18 07:00 Carbon Dioxide 31 mmol/L (21-32) 04/12/18 07:00 Anion Gap 7 MMOL/L (8-16) L 04/12/18 07:00 BUN 25 mg/dL (7-18) H 04/12/18 07:00 Creatinine 1.2 mg/dL (0.55-1.3) 04/12/18 07:00 Creat Clearance w eGFR > 60 (>60) 04/12/18 07:00 POC Glucometer 106 UNITS (80-120) 04/12/18 06:11 Random Glucose 97 mg/dL (74-106) 04/12/18 07:00 Calcium 7.7 mg/dL (8.5-10.1) L 04/12/18 07:00 Magnesium 2.0 mg/dL (1.8-2.4) 04/06/18 17:53 Total Bilirubin 0.4 mg/dL (0.2-1) 04/12/18 07:00 AST 18 U/L (15-37) 04/12/18 07:00 ALT 22 U/L (13-61) 04/12/18 07:00 Alkaline Phosphatase 94 U/L (45-117) 04/12/18 07:00 Creatine Kinase 133 U/L (26-308) 04/08/18 05:30 Creatine Kinase Index 1.4 % (0.0-5.0) 04/07/18 12:10 CK-MB (CK-2) 2.3 ng/mL (0.5-3.6) 04/07/18 12:10 Troponin I 0.07 ng/ml (0.00-0.05) H 04/08/18 05:30 Total Protein 6.7 g/dl (6.4-8.2) 04/12/18 07:00 Albumin 2.7 g/dl (3.4-5.0) L 04/12/18 07:00 TSH 2.46 uIU/ml (0.358-3.74) D 04/07/18 12:10 Vital Signs Temp 97.9 F 04/12/18 10:00 Pulse 60 04/12/18 10:00 Resp 20 04/12/18 10:00 BP 162/98 04/12/18 10:00 Pulse Ox 95 04/12/18 08:33 Intake & Output 04/11/18 04/11/18 04/12/18 11:59 23:59 11:59 Intake Total 385 500 Balance 385 500 Intake: Oral 360 500 Oral Supplement 25 Other: Voiding Method Diaper Diaper Diaper # Unmeasured Voids Void 2 3 2 Bowel Movement No # Bowel Movements 1 Condition: Stable - Instructions Disposition: LONG TERM FACILITY - Home Medications Comprehensive Discharge Medication List: Ambulatory Orders Aa/[place]/Arg/C/Zn/Cu [Lps Critical Care Liquid] 30 ml PO DAILY Acetaminophen 650 mg PO Q6H 04/06/18 Amlodipine Besylate 10 mg PO DAILY 04/06/18 Apixaban [Eliquis -] 5 mg PO BID 04/06/18 Docusate Sodium [Colace -] 100 mg PO TID 04/06/18 Ferrous Sulfate 325 mg PO DAILY 04/06/18 Hydralazine HCl 25 mg PO QID 04/06/18 Levothyroxine [Synthroid -] 75 mcg PO DAILY 04/06/18 Metoprolol Succinate [Toprol XL -] 100 mg PO DAILY 04/06/18 Olmesartan Medoxomil [Benicar] 40 mg PO DAILY 04/06/18 Polyvinyl Alcohol [Artificial Tears] 2 drop OD QID 04/06/18 Rosuvastatin [Crestor -] 10 mg PO HS 04/06/18 Silver Sulfadiazine 1% Top Cr [Silvadene -] 1 applic TP DAILY 04/06/18 Sitagliptin Phosphate [Januvia] 50 mg PO DAILY 04/06/18 Sodium Chloride [Saline Mist] 1 spray NS TID 04/06/18 Tamsulosin HCl 0.8 mg PO DAILY 04/06/18 levETIRAcetam [Keppra -] 750 mg PO BID tablet 04/12/18
--- NOTE | 2018-04-12 13:45 | PN ---
Progress Note, Physician Chief Complaint: Events noted Not in distress History of Present Illness: Patient was seen and examined. Awake and alert. Chart was reviewed - Current Medication List Current Medications: Active Medications Acetaminophen (Tylenol -) 650 mg PO Q6HPO [facility] Last Admin: 04/12/18 12:18 Dose: 650 mg Amlodipine Besylate (Norvasc -) 10 mg PO DAILY [facility] Last Admin: 04/12/18 09:45 Dose: 10 mg Apixaban (Eliquis -) 5 mg PO BID [facility] Last Admin: 04/12/18 09:44 Dose: 5 mg Artificial Tears (Artificial Tears) 2 drop OD QID [facility] Last Admin: 04/12/18 09:44 Dose: 2 drop Docusate Sodium (Colace -) 100 mg PO TID [facility] Last Admin: 04/12/18 06:07 Dose: 100 mg Ferrous Sulfate (Feosol -) 325 mg PO DAILY [facility] Last Admin: 04/12/18 09:44 Dose: 325 mg Hydralazine HCl (Apresoline -) 50 mg PO TID [facility] Last Admin: 04/12/18 06:07 Dose: 50 mg Levetiracetam 500 mg/ (Levetiracetam 250 mg) 750 mg PO BID [facility] Last Admin: 04/12/18 09:44 Dose: 750 mg Levothyroxine Sodium (Synthroid -) 75 mcg PO DAILY@0700 [facility] Last Admin: 04/12/18 06:07 Dose: 75 mcg Metoprolol Succinate (Toprol Xl -) 150 mg PO DAILY [facility] Last Admin: 04/12/18 09:45 Dose: 150 mg Rosuvastatin Calcium (Crestor -) 10 mg PO HS [facility] Last Admin: 04/11/18 22:07 Dose: 10 mg Silver Sulfadiazine (Silvadene -) 1 applic TP DAILY [facility] Last Admin: 04/12/18 09:45 Dose: 1 applic Sitagliptin Phosphate (Januvia -) 50 mg PO DAILY@0700 [facility] Last Admin: 04/12/18 06:07 Dose: 50 mg Sodium Chloride ([place] Nasal Allen -) 1 spray NS TID [facility] Last Admin: 04/12/18 06:08 Dose: 1 sprays Tamsulosin HCl (Flomax -) 0.8 mg PO DAILY@0830 [facility] Last Admin: 04/12/18 08:14 Dose: 0.8 mg Valsartan (Diovan -) 320 mg PO DAILY [facility] Last Admin: 04/12/18 09:44 Dose: 320 mg - Objective Vital Signs: Vital Signs Temperature 97.9 F 04/12/18 10:00 Pulse Rate 60 04/12/18 10:00 Respiratory Rate 20 04/12/18 10:00 Blood Pressure 162/98 04/12/18 10:00 O2 Sat by Pulse Oximetry (%) 95 04/12/18 08:33 HENT: Yes: Atraumatic Neck: Yes: Supple Cardiovascular: Yes: Regular Rate and Rhythm, S1, S2 Respiratory: Yes: CTA Bilaterally Gastrointestinal: Yes: Normal Bowel Sounds, Soft. No: Tenderness Edema: No Labs: CBC, BMP 04/12/18 07:00 04/12/18 07:00 Problem List - Problems (1) Demand ischemia Code(s): I24.8 - OTHER FORMS OF ACUTE ISCHEMIC HEART DISEASE (2) Seizure Code(s): R56.9 - UNSPECIFIED CONVULSIONS (3) CAD (coronary artery disease) Code(s): I25.10 - ATHSCL HEART DISEASE OF [place] CORONARY ARTERY W/O ANG PCTRS Qualifiers: Coronary Disease-Associated Artery/Lesion type: [place] artery [place] vs. transplanted heart: [place] heart Associated angina: with unspecified angina Qualified Code(s): I25.119 - Atherosclerotic heart disease of [place] coronary artery with unspecified angina pectoris (4) Cerebrovascular disease Code(s): I67.9 - CEREBROVASCULAR DISEASE, UNSPECIFIED (5) Diabetes mellitus Code(s): E11.9 - TYPE 2 DIABETES MELLITUS WITHOUT COMPLICATIONS Qualifiers: Diabetes mellitus type: type 2 (6) Hypercholesteremia Code(s): E78.0 - PURE HYPERCHOLESTEROLEMIA * DO NOT USE * (7) Hypertension Code(s): I10 - ESSENTIAL (PRIMARY) HYPERTENSION Qualifiers: Hypertension type: essential hypertension Qualified Code(s): I10 - Essential (primary) hypertension (8) Hypothyroid Code(s): E03.9 - HYPOTHYROIDISM, UNSPECIFIED Qualifiers: Hypothyroidism type: unspecified Qualified Code(s): E03.9 - Hypothyroidism , unspecified Assessment/Plan 1. Seizure disorder 2. CAD angina pectoris with evidence of demand ischemia 3. Diastolic LV dysfunction with clinical class 0 NYHA classification LV failure 4. PAF with [id number] score 5 on DOAC/Eliquis 5. HTN, labile blood pressure 6. DM 7. Hypercholesterolemia 8. History of CVA 9. Cerebral aneurysm post endo-clip 10. Hypothyroidism 11. Post right nephrectomy PLAN: 1. Continue Metoprolol ER 150 mg QD, Diovan 320 mg QD, Norvasc 10 mg QD and Hydralazine 50 mg TID 2. Continue Crestor 10 mg QHS and Eliquis 5 mg BID 3. Follow up in office upon discharge Viraj Rae MD
[2018-04-12 14:27] VITALS: BP 144/79; PULSE 65; TEMP 99
== END 2018-04-12 19:11 | DRG 101 ==
LOC: JER 16:16 → JERBED 21:25 → OBSVTOIN 21:45 → J4W 04-07 03:23 → J6S 04-11 17:15
PROVIDERS: ADMIT Internal Medicine; ATTEND Family Medicine
DX: G40.909 Epilepsy, unspecified, not intractable, without status epilepticus (principal); I69.351 Hemiplegia and hemiparesis following cerebral infarction affecting right dominant side; I24.8 Other forms of acute ischemic heart disease; R00.0 Tachycardia, unspecified; I44.0 Atrioventricular block, first degree; R15.9 Full incontinence of feces; I25.2 Old myocardial infarction; E03.9 Hypothyroidism, unspecified; N40.0 Benign prostatic hyperplasia without lower urinary tract symptoms; I48.0 Paroxysmal atrial fibrillation; H53.47 Heteronymous bilateral field defects; I25.119 Atherosclerotic heart disease of native coronary artery with unspecified angina pectoris; I12.9 Hypertensive chronic kidney disease with stage 1 through stage 4 chronic kidney disease, or unspecified chronic kidney disease; E87.6 Hypokalemia; I44.7 Left bundle-branch block, unspecified; E11.22 Type 2 diabetes mellitus with diabetic chronic kidney disease; N18.9 Chronic kidney disease, unspecified; Z86.718 Personal history of other venous thrombosis and embolism; Z90.5 Acquired absence of kidney; Z96.651 Presence of right artificial knee joint
CPT/HCPCS: 36415; 70450-TC; 71045-TC-FY; 80053; 82550; 82553; 82962; 83735; 84443; 84484; 85025; 85027; 85610; 93005; 93010; 93306-TC; 95816; 97162-GP; 99285-25; G0378

== ENCOUNTER 2018-04-30 16:16 | Inpatient (IN) | payer BC, OTHER ==
--- NOTE | 2018-04-30 16:57 | PDOC ---
Attending Attestation - Resident Resident Name: Brittney Orozco - ED Attending Attestation I have performed the following: I have examined & evaluated the patient, The case was reviewed & discussed with the resident, I agree w/resident's findings & plan, Exceptions are as noted - HPI HPI: 04/30/18 16:54 68yo M hx AF, CVA 2012 with residual L sided weakness, HL, CAD/sp PA, CKD, DM, thyroid disease presents to the ED from [facility] for altered mental status. History limited from pt as he is slow to respond and answers inappropriately. Per [facility] staff, since this morning, he has been less conversant than usual, slower to respond, and his BP has been elevated. They have not noted any new neuro deficits. They report pt was diagnosed with PNA and UTI yesterday and started on levaquin. - Physicial Exam PE: 04/30/18 21:11 agree with resident exam - Medical Decision Making 04/30/18 21:11 68yo F hx CVA s/p L sided weakness presents to the ED with altered mental status. [facility] staff told us before that pt normally conversive, quick to respond but now more lethargic. On exam, pt states his RLE hurts and is unable to lift it. Unable to contact staff at [facility] to see what baseline strength of RLE is. Son no longer at bedside. Unclear if ams is 2/2 to CVA vs TIA vs levaquin side effect. Unknown LKN as pt woke up with AMS per [facility] staff. CTH study negative for acute findings Labs wnl CXR/UA clear, but pt was on levaquin Plan to hold levaquin, cover with Vanc/Zosyn, admit for fruther w/u Pt admitted to Dr. Romero Case discussed in detail with admitting physician including history, physical exam and ancillary studies. Admitting physician has assumed care for the patient, will follow all pending diagnostics and will complete the evaluation and treatment. Heart Score/ECG Review #1 04/30/18 23:24 Twelve-lead EKG was performed and reviewed by me. Sinus rhythm with first- degree AV block, rate 68. Left axis deviation. V3 with down sloping ST segment but otherwise no ST elevations.
--- NOTE | 2018-04-30 17:22 | PDOC ---
History of Present Illness - General Chief Complaint: Blood Pressure Problem Stated Complaint: HYPERTENSION Time Seen by Provider: 04/30/18 16:38 History Source: Patient - History of Present Illness Initial Comments: 04/30/18 17:17 Patient is a 68 y/o male with a history of afib, CVA (2012) with left sided hemiplegia, HTN, HLD, cerebral aneurysm (2012), [place] (2014), CKD, DM, and hypothyroidism who presents for high blood pressure. Patient difficult to elicit history from. Called [facility] and spoke with nurse. At 2 pm patient started complaining of headache and blurry vision. Unsure if he had blurry vision in the past but he typically wears glasses and he is not currently wearing glasses. His blood pressure was taken and found to be 200/110. Patient was diagnosed with a pneumonia and UTI yesterday and started on Levaquin. Upon examination patient does not currently complain of headache. He received his morning medications and two doses( of four) of his hydralazine. Per senior care patients baseline is typically talkative and he makes jokes. Currently he only answers yes or no to questions and with delay. Patient has no other complaints. Past History - Past Medical History Allergies/Adverse Reactions: Allergies Allergy/AdvReac Type Severity Reaction Status Date / Time No Known Allergies Allergy Verified 08/22/17 13:51 Home Medications: Ambulatory Orders Aa/[place]/Arg/C/Zn/Cu [Lps Critical Care Liquid] 30 ml PO DAILY Acetaminophen 650 mg PO Q6H 04/06/18 Amlodipine Besylate 10 mg PO DAILY 04/06/18 Apixaban [Eliquis -] 5 mg PO BID 04/06/18 Docusate Sodium [Colace -] 100 mg PO TID 04/06/18 Ferrous Sulfate 325 mg PO DAILY 04/06/18 Hydralazine HCl 25 mg PO QID 04/06/18 Levothyroxine [Synthroid -] 75 mcg PO DAILY 04/06/18 Metoprolol Succinate [Toprol XL -] 100 mg PO DAILY 04/06/18 Olmesartan Medoxomil [Benicar] 40 mg PO DAILY 04/06/18 Polyvinyl Alcohol [Artificial Tears] 2 drop OD QID 04/06/18 Rosuvastatin [Crestor -] 10 mg PO HS 04/06/18 Silver Sulfadiazine 1% Top Cr [Silvadene -] 1 applic TP DAILY 04/06/18 Sitagliptin Phosphate [Januvia] 50 mg PO DAILY 04/06/18 Sodium Chloride [Saline Mist] 1 spray NS TID 04/06/18 Tamsulosin HCl 0.8 mg PO DAILY 04/06/18 levETIRAcetam [Keppra -] 750 mg PO BID tablet 04/12/18 Anemia: No Asthma: No Cancer: No Cardiac Disorders: Yes (atrial fib) CVA: Yes (Right basal ganglia bleed (10/2015)) COPD: No CHF: No Dementia: No Diabetes: Yes GI Disorders: No Disorders: No HTN: Yes Hypercholesterolemia: Yes Liver Disease: No Seizures: No Thyroid Disease: Yes - Surgical History Abdominal Surgery: No Appendectomy: No Cardiac Surgery: No Cholecystectomy: No Lung Surgery: No Neurologic Surgery: Yes (ANEURSYM) Orthopedic Surgery: Yes (right knee) - Immunization History Immunization Up to Date: Yes - Suicide/Smoking/Psychosocial Hx Smoking Status: No Smoking History: Former smoker Have you smoked in the past 12 months: No Number of Cigarettes Smoked Daily: 0 Information on smoking cessation initiated: No Hx Alcohol Use: No Drug/Substance Use Hx: No Substance Use Type: None Hx Substance Use Treatment: No Review of Systems - Review of Systems Constitutional: No: Chills, Fever HEENTM: Yes: Blurred Vision Respiratory: Yes: Cough. No: Shortness of Breath Cardiac (ROS): No: Chest Pain, Palpitations, Chest Tightness ABD/GI: No: Constipated, Diarrhea : No: Dysuria Neurological: No: Headache *Physical Exam - Vital Signs Last Vital Signs Temp Pulse Resp BP Pulse Ox 98.2 F 69 18 162/103 H 98 04/30/18 16:36 04/30/18 16:36 04/30/18 16:36 04/30/18 16:36 04/30/18 16:36 - Physical Exam Comments: 04/30/18 17:23 GENERAL: Awake, obese, contracted on the left side, speech slow EYES: EOMI, PERRLA HEART: RRR, no murmurs, rubs, or gallops LUNGS: difficult to auscultate, no crackles heard anteriorly or at bases ABDOMEN: soft, nontender EXTREMITIES: without pitting edema, left side contracted, ROM intact R arm, R leg unable to move SKIN: no rashes noted Moderate Sedation - Procedure Monitoring Vital Signs: Procedure Monitoring Vital Signs Temperature 98.2 F 04/30/18 16:36 Pulse Rate 69 04/30/18 16:36 Respiratory Rate 18 04/30/18 16:36 Blood Pressure 162/103 H 04/30/18 16:36 O2 Sat by Pulse Oximetry (%) 98 04/30/18 16:36 ED Treatment Course - LABORATORY CBC & Chemistry Diagram: 04/30/18 17:30 04/30/18 17:30 - RADIOLOGY Radiology Studies Ordered: Category Date Time Status HEAD CT WITHOUT CONTRAST [CT] Stat CT Scan 04/30/18 17:14 Ordered CHEST X-RAY PORTABLE* [RAD] Stat Radiology 04/30/18 17:14 Ordered Medical Decision Making - Medical Decision Making 04/30/18 17:25 AMS: f/u labs, UA, head CT, CXR EKG: first degree AV block , QTC 467 04/30/18 21:42 Vanc and Zosyn to cover UTI and PNA hx, Levaquin black box warnings not indicated with patients hx Head CT: small ischemic changes, hx of right sided craniotomy K repleted 04/30/18 23:43 patient admitted to [facility], per Dr. Romero *DC/Admit/Observation/Transfer Diagnosis at time of Disposition: Altered mental status Qualifiers: Altered mental status type: unspecified Qualified Code(s): R41.82 - Altered mental status, unspecified - Discharge Dispostion Decision to Admit order: Yes - Referrals - Patient Instructions - Post Discharge Activity
[2018-04-30 18:21] LABS: BASO % 0.6 % (0-2.0); EOS % 6.4 % (0-4.5); HEMATOCRIT 42.1 % (35.4-49); HEMOGLOBIN 13.7 GM/dL (11.7-16.9); LYMPH % 20.4 % (8-40); MCH 23.2 pg (25.7-33.7); MCHC 32.6 g/dl (32.0-35.9); MEAN CELL VOLUME 71.1 fl (80-96); MEAN PLT VOLUME 8.4 fl (7.5-11.1); NEUT % 65.6 % (42.8-82.8); PLATELET COUNT 154 K/MM3 (134-434); RBC 5.93 M/mm3 (4.00-5.60); RDW 16.9 % (11.9-15.9); WHITE BLOOD COUNT 5.8 K/mm3 (4.0-10.0)
[2018-04-30 19:00] LABS: EPI CELLS 2.4 /HPF (0-5); HYALINE CASTS 1 /hpf (0-8); PH,URINE 7.5 (5.0-8.0); URINE APPEARANCE CLEAR; URINE BACTERIA 12.852 /hpf (NEGATIVE); URINE BILIRUBIN NEGATIVE (<2.0 mg/dL); URINE COLOR YELLOW; URINE GLUCOSE (UA) NEGATIVE (NEGATIVE); URINE KETONE NEGATIVE (NEGATIVE); URINE LEUK ESTERASE NEGATIVE (NEGATIVE); URINE NITRITE NEGATIVE (NEGATIVE); URINE PROTEIN 3+ (NEGATIVE); URINE UROBILINOGEN 0.2 mg/dL (0.2-1.0); URINE WBC 3 /hpf (0-5)
[2018-04-30 19:16] LABS: ALBUMIN 3.4 g/dl (3.4-5.0); ALK PHOS 132 U/L (45-117); ANION GAP 7 MMOL/L (8-16); BILIRUBIN,TOTAL 0.5 mg/dL (0.2-1); BLOOD UREA NITROGEN 18 mg/dL (7-18); CALCIUM 8.1 mg/dL (8.5-10.1); CHLORIDE 99 mmol/L (98-107); CO2 34 mmol/L (21-32); CREATININE 1.1 mg/dL (0.55-1.3); GLUCOSE,RANDOM 120 mg/dL (74-106); N-TERMINAL BNP 1710.9 pg/ml (5-125); POTASSIUM 3.2 mmol/L (3.5-5.1); SGOT/AST 20 U/L (15-37); SGPT/ALT 21 U/L (13-61); SODIUM 140 mmol/L (136-145); TOT PROT 8.6 g/dl (6.4-8.2)
[2018-04-30 19:42] LABS: URINE RBC 3 /hpf (0-4)
[2018-04-30] MEDS ORDERED: VANCOMYCIN 1 GM in D5W (PRE-DOCKED) 1,000 MG/250 ML IVPB ONE (20:49)
[2018-04-30] MEDS ORDERED: PIPERACILLIN/TAZOB 4.5 GM 4.5 GM in DEXTROSE 5%-WATER 100 ML IVPB ONE (20:50)
[2018-04-30] MEDS ORDERED: PIPERACILLIN/TAZOB 4.5 GM 4.5 GM/100 ML BAG IVPB ONE (22:22)
[2018-04-30] MEDS ORDERED: VANCOMYCIN 1 GRAM (PRE-DOCKED) 1,000 MG/250 ML BAG IVPB ONE (22:22)
[2018-04-30] MEDS ORDERED: KCL 10 MEQ IVPB 30 MEQ/300 ML INFUS.BAG IVPB ONE (22:22)
[2018-04-30] MEDS: KCL 10 MEQ IVPB 10 MEQ/100 ML INFUS.BAG IVPB SCH (23:40)
--- NOTE | 2018-04-30 23:53 | HP ---
Admitting History and Physical - Admission Chief Complaint: AMS History of Present Illness: History obtained from the chart patient does not know what he is at the hospital for, he only knows he is at [facility] Patient is a 68 y/o male with a history of afib, CVA (2012) with left sided hemiplegia, HTN, HLD, cerebral aneurysm (2012), [place] (2014), CKD, DM, and hypothyroidism who presents for high blood pressure. Patient difficult to elicit history from. Called [facility] and spoke with nurse. At 2 pm patient started complaining of headache and blurry vision. Unsure if he had blurry vision in the past but he typically wears glasses and he is not currently wearing glasses. His blood pressure was taken and found to be 200/110. Patient was diagnosed with a pneumonia and UTI yesterday and started on Levaquin. Upon examination patient does not currently complain of headache. He received his morning medications and two doses( of four) of his hydralazine. Per retirement patients baseline is typically talkative and he makes jokes. Currently he only answers yes or no to questions and with delay. 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 (cerebral aneurysm has two titanium clips) Cardiovascular: Yes: AFIB, Deep Vein Thrombosis, HTN, Hyperlipdemia Renal/: Yes: Renal Inusuff Musculoskeletal: Yes: Hemiparesis, Hemiplegia Endocrine: Yes: Diabetes Mellitus, Hypothyroidism - Past Surgical History Past Surgical History: Yes: Nephrectomy (right) - Smoking History Smoking history: Former smoker Have you smoked in the past 12 months: No Aproximately how many cigarettes per day: 0 - Alcohol/Substance Use Hx Alcohol Use: No History of Substance Use: reports: None - Social History ADL: Support Services Occupation: Disabled, History of Recent Travel: No Home Medications - Allergies Allergies/Adverse Reactions: Allergies Allergy/AdvReac Type Severity Reaction Status Date / Time No Known Allergies Allergy Verified 08/22/17 13:51 - Home Medications Home Medications: Ambulatory Orders Aa/[place]/Arg/C/Zn/Cu [Lps Critical Care Liquid] 30 ml PO DAILY Acetaminophen 650 mg PO Q6H 04/06/18 Amlodipine Besylate 10 mg PO DAILY 04/06/18 Apixaban [Eliquis -] 5 mg PO BID 04/06/18 Docusate Sodium [Colace -] 100 mg PO TID 04/06/18 Ferrous Sulfate 325 mg PO DAILY 04/06/18 Hydralazine HCl 25 mg PO QID 04/06/18 Levothyroxine [Synthroid -] 75 mcg PO DAILY 04/06/18 Metoprolol Succinate [Toprol XL -] 100 mg PO DAILY 04/06/18 Olmesartan Medoxomil [Benicar] 40 mg PO DAILY 04/06/18 Polyvinyl Alcohol [Artificial Tears] 2 drop OD QID 04/06/18 Rosuvastatin [Crestor -] 10 mg PO HS 04/06/18 Silver Sulfadiazine 1% Top Cr [Silvadene -] 1 applic TP DAILY 04/06/18 Sitagliptin Phosphate [Januvia] 50 mg PO DAILY 04/06/18 Sodium Chloride [Saline Mist] 1 spray NS TID 04/06/18 Tamsulosin HCl 0.8 mg PO DAILY 04/06/18 levETIRAcetam [Keppra -] 750 mg PO BID tablet 04/12/18 Review of Systems Unable to obtain ROS, reason: AMS Physical Examination Vital Signs: Vital Signs Temperature 98.6 F 04/30/18 18:29 Pulse Rate 64 04/30/18 18:29 Respiratory Rate 20 04/30/18 18:29 Blood Pressure 170/99 04/30/18 18:29 O2 Sat by Pulse Oximetry (%) 97 04/30/18 18:32 Constitutional: Yes: Well Nourished, No Distress, Calm Eyes: Yes: WNL, Conjunctiva Clear, EOM Intact HENT: Yes: WNL, Normocephalic, Other Neck: Yes: WNL, Supple, Trachea Midline Cardiovascular: Yes: WNL, Pulse Irregular, S1, S2 Respiratory: Yes: WNL, Regular, CTA Bilaterally Gastrointestinal: Yes: WNL, Normal Bowel Sounds, Soft Musculoskeletal: Yes: WNL Extremities: Yes: WNL Edema: No Peripheral Pulses WNL: Yes Integumentary: Yes: WNL Neurological: Yes: WNL, Alert, Oriented (to himself and place) ...Motor Strength: WNL Psychiatric: Yes: WNL, Alert Labs: CBC, BMP 04/30/18 17:30 04/30/18 17:30 Imaging - Results Chest X-ray: Image Reviewed EKG: Image Reviewed Problem List - Problems (1) Altered mental status Code(s): R41.82 - ALTERED MENTAL STATUS, UNSPECIFIED Qualifiers: Altered mental status type: unspecified Qualified Code(s): R41.82 - Altered mental status, unspecified (2) Afib Code(s): I48.91 - UNSPECIFIED ATRIAL FIBRILLATION Qualifiers: (3) BPH (benign prostatic hyperplasia) Code(s): N40.0 - BENIGN PROSTATIC HYPERPLASIA WITHOUT LOWER URINRY TRACT SYMP (4) Basal ganglia hemorrhage Code(s): I61.0 - NONTRAUMATIC INTCRBL HEMORRHAGE IN HEMISPHERE, SUBCORTICAL (5) CAD (coronary artery disease) Code(s): I25.10 - ATHSCL HEART DISEASE OF [place] CORONARY ARTERY W/O ANG PCTRS (6) DVT (deep venous thrombosis) Code(s): I82.409 - ACUTE EMBOLISM AND THOMBOS UNSP DEEP VN UNSP LOWER EXTREMITY (7) Diabetes mellitus Code(s): E11.9 - TYPE 2 DIABETES MELLITUS WITHOUT COMPLICATIONS (8) Hypercholesteremia Code(s): E78.0 - PURE HYPERCHOLESTEROLEMIA * DO NOT USE * (9) Hypertension associated with stage 2 chronic kidney disease due to type 2 diabetes mellitus Code(s): E11.22 - TYPE 2 DIABETES MELLITUS W DIABETIC CHRONIC KIDNEY DISEASE; I12.9 - HYPERTENSIVE CHRONIC KIDNEY DISEASE W STG 1-4/UNSP CHR KDNY; N18.2 - CHRONIC KIDNEY DISEASE, STAGE 2 (MILD) (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
[2018-05-01] MEDS: KCL 10 MEQ IVPB 10 MEQ/100 ML INFUS.BAG IVPB SCH ×2 (00:29→01:18)
[2018-05-01] MEDS ORDERED: ACETAMINOPHEN 325 MG TABLET (FP) ONE (01:12)
[2018-05-01] MEDS: ACETAMINOPHEN 325 MG TABLET (FP) PO SCH ×4 (01:18→17:03)
[2018-05-01] MEDS: INSULIN SLIDING SCALE (NOVOLOG) 1 VIAL SQ SCH ×3 (06:34→17:55)
[2018-05-01] MEDS: sitaGLIPtin PHOSPHATE 50 MG TABLET PO SCH (06:35)
[2018-05-01] MEDS: DOCUSATE SODIUM 100 MG CAPSULE (FP) PO SCH ×3 (06:35→22:02)
[2018-05-01] MEDS: LEVOTHYROXINE NA 75 MCG TABLET (FP) PO SCH (06:35)
[2018-05-01] MEDS: amLODIPine BESYLATE 10 MG TABLET (FP) PO SCH (09:18)
[2018-05-01] MEDS: levETIRAcetam 250 MG TABLET (FP) PO SCH ×2 (09:18→22:01)
[2018-05-01] MEDS: TAMSULOSIN HCL 0.4 MG CAP PO SCH (09:18)
[2018-05-01] MEDS: APIXABAN 5 MG TABLET PO SCH ×2 (09:18→22:02)
[2018-05-01] MEDS: VALSARTAN 160 MG TABLET (UD) PO SCH (09:19)
[2018-05-01] MEDS: hydrALAZINE HCL 25 MG TABLET (FP) PO SCH ×4 (09:19→22:02)
[2018-05-01] MEDS ORDERED: ENOXAPARIN NA (PORCINE) 40 MG/0.4 ML DISP.SYRIN SQ SCH (10:00)
[2018-05-01 16:10] LABS: HEMOGLOBIN 11.5 GM/dL (11.7-16.9); MCH 23.3 pg (25.7-33.7); MEAN CELL VOLUME 70.6 fl (80-96); MEAN PLT VOLUME 8.7 fl (7.5-11.1); PLATELET COUNT 130 K/MM3 (134-434); RBC 4.95 M/mm3 (4.00-5.60); RDW 16.4 % (11.9-15.9)
[2018-05-01 16:26] LABS: INR 1.22 (0.83-1.09); PROTHROMBIN TIME (PATIENT) 14.4 SEC (9.7-13.0)
[2018-05-01 16:29] LABS: ACTIVATED PTT 32.5 SECONDS (25.2-36.5)
[2018-05-01 16:38] LABS: ALBUMIN 2.7 g/dl (3.4-5.0); ANION GAP 6 MMOL/L (8-16); BILIRUBIN,TOTAL 0.4 mg/dL (0.2-1); BLOOD UREA NITROGEN 23 mg/dL (7-18); CALCIUM 7.6 mg/dL (8.5-10.1); CHLORIDE 100 mmol/L (98-107); CO2 32 mmol/L (21-32); CREATININE 1.4 mg/dL (0.55-1.3); GLUCOSE,RANDOM 144 mg/dL (74-106); MAGNESIUM 1.9 mg/dL (1.8-2.4); PHOSPHOROUS 3.8 mg/dL (2.5-4.9); POTASSIUM 3.2 mmol/L (3.5-5.1); SGOT/AST 20 U/L (15-37); SGPT/ALT 17 U/L (13-61); SODIUM 139 mmol/L (136-145); TOT PROT 6.6 g/dl (6.4-8.2)
[2018-05-01 16:39] LABS: ALK PHOS 101 U/L (45-117)
--- NOTE | 2018-05-01 17:28 | PN ---
Progress Note, Physician Chief Complaint: AMS Elevated BP History of Present Illness: Previous notes and events reviewed awake and alert NAD no complaints of pain - Current Medication List Current Medications: Active Medications Acetaminophen (Tylenol -) 650 mg PO Q6HPO [facility] Last Admin: 05/01/18 17:03 Dose: 650 mg Amlodipine Besylate (Norvasc -) 10 mg PO DAILY [facility] Last Admin: 05/01/18 09:18 Dose: 10 mg Apixaban (Eliquis -) 5 mg PO BID [facility] Last Admin: 05/01/18 09:18 Dose: 5 mg Docusate Sodium (Colace -) 100 mg PO TID [facility] Last Admin: 05/01/18 13:23 Dose: 100 mg Hydralazine HCl (Apresoline -) 25 mg PO QID [facility] Last Admin: 05/01/18 17:03 Dose: 25 mg Insulin Aspart (Novolog Vial Sliding Scale -) 1 vial SQ TIDAC [facility]; Protocol Last Admin: 05/01/18 11:51 Dose: Not Given Levetiracetam (Keppra -) 750 mg PO BID [facility] Last Admin: 05/01/18 09:18 Dose: 750 mg Levothyroxine Sodium (Synthroid -) 75 mcg PO AM [facility] Last Admin: 05/01/18 06:35 Dose: 75 mcg Metoprolol Succinate (Toprol Xl -) 100 mg PO DAILY [facility] Last Admin: 05/01/18 09:18 Dose: 100 mg Rosuvastatin Calcium (Crestor -) 10 mg PO HS [facility] Sitagliptin Phosphate (Januvia -) 50 mg PO AM [facility] Last Admin: 05/01/18 06:35 Dose: 50 mg Tamsulosin HCl (Flomax -) 0.8 mg PO DAILY@0830 [facility] Last Admin: 05/01/18 09:18 Dose: 0.8 mg Valsartan (Diovan -) 320 mg PO DAILY [facility] Last Admin: 05/01/18 09:19 Dose: 320 mg - Objective Vital Signs: Vital Signs Temperature 99.4 F 05/01/18 14:00 Pulse Rate 58 L 05/01/18 14:00 Respiratory Rate 05/01/18 14:00 Blood Pressure 141/79 05/01/18 14:00 O2 Sat by Pulse Oximetry (%) 99 05/01/18 09:00 Constitutional: Yes: No Distress, Calm Eyes: Yes: Conjunctiva Clear HENT: Yes: Atraumatic Cardiovascular: Yes: Pulse Irregular Respiratory: Yes: CTA Bilaterally Gastrointestinal: Yes: Normal Bowel Sounds, Soft Genitourinary: Yes: Incontinence Musculoskeletal: Yes: Muscle Weakness Extremities: Yes: WNL Edema: No Neurological: Yes: Alert, Pre-Existing Deficit, Weakness (L side residual) Psychiatric: Yes: Alert Labs: CBC, BMP 05/01/18 15:35 05/01/18 15:35 INR, PTT INR 1.22 (0.83-1.09) H 05/01/18 15:35 Problem List - Problems (1) Altered mental status Assessment/Plan: -brain CT scan shows no definitive changes - pending Code(s): R41.82 - ALTERED MENTAL STATUS, UNSPECIFIED Qualifiers: Altered mental status type: unspecified Qualified Code(s): R41.82 - Altered mental status, unspecified (2) Afib Assessment/Plan: -continue Eliquis BID and metoprolol -tele monitoring -echo ordered Code(s): I48.91 - UNSPECIFIED ATRIAL FIBRILLATION Qualifiers: (3) BPH (benign prostatic hyperplasia) Assessment/Plan: -continue Tamsulosin Code(s): N40.0 - BENIGN PROSTATIC HYPERPLASIA WITHOUT LOWER URINRY TRACT SYMP (4) Diabetes mellitus Assessment/Plan: -[facility] -Sitagliptan -diabetic diet Code(s): E11.9 - TYPE 2 DIABETES MELLITUS WITHOUT COMPLICATIONS (5) Hypertension Assessment/Plan: -continue with almodipine, valsartan, hydralazine Code(s): I10 - ESSENTIAL (PRIMARY) HYPERTENSION Qualifiers: Hypertension type: essential hypertension Qualified Code(s): I10 - Essential (primary) hypertension (6) Hypothyroid Assessment/Plan: -continue levothyroxine Code(s): E03.9 - HYPOTHYROIDISM, UNSPECIFIED Qualifiers: Hypothyroidism type: unspecified Qualified Code(s): E03.9 - Hypothyroidism , unspecified (7) Seizure Assessment/Plan: -continue keppra -fall precaution Code(s): R56.9 - UNSPECIFIED CONVULSIONS Assessment/Plan see problem list dvt ppx
[2018-05-01] MEDS: ROSUVASTATIN CA 10 MG TABLET (FP) PO SCH (22:02)
--- NOTE | 2018-05-01 23:51 | EKG ---
Test Reason : Blood Pressure : / mmHG Vent. Rate : 068 BPM Atrial Rate : 068 BPM P-R Int : 260 ms QRS Dur : 114 ms QT Int : 440 ms P-R-T Axes : 022 -51 117 degrees QTc Int : 467 ms SINUS RHYTHM WITH 1ST DEGREE A-V BLOCK LEFT AXIS DEVIATION LEFT VENTRICULAR HYPERTROPHY WITH REPOLARIZATION ABNORMALITY CANNOT RULE OUT SEPTAL INFARCT , AGE UNDETERMINED ABNORMAL ECG WHEN COMPARED WITH ECG OF 06-APR-2018 16:44, INCOMPLETE LEFT BUNDLE BRANCH BLOCK IS NO LONGER PRESENT Confirmed by LISA GARVEY MD ([id number]) on 05/01/2018 11:50:44 PM Referred By: Confirmed By:LISA GARVEY MD
[2018-05-02] MEDS: ACETAMINOPHEN 325 MG TABLET (FP) PO SCH ×4 (00:29→17:11)
[2018-05-02] MEDS: DOCUSATE SODIUM 100 MG CAPSULE (FP) PO SCH ×3 (05:48→22:58)
[2018-05-02] MEDS: LEVOTHYROXINE NA 75 MCG TABLET (FP) PO SCH (06:30)
[2018-05-02] MEDS: sitaGLIPtin PHOSPHATE 50 MG TABLET PO SCH (06:30)
[2018-05-02] MEDS: INSULIN SLIDING SCALE (NOVOLOG) 1 VIAL SQ SCH ×3 (06:30→17:25)
[2018-05-02 06:47] LABS: HEMOGLOBIN 11.4 GM/dL (11.7-16.9); MCH 23.7 pg (25.7-33.7); MCHC 33.7 g/dl (32.0-35.9); MEAN CELL VOLUME 70.4 fl (80-96); MEAN PLT VOLUME 8.6 fl (7.5-11.1); PLATELET COUNT 128 K/MM3 (134-434); RBC 4.82 M/mm3 (4.00-5.60); RDW 16.3 % (11.9-15.9); WHITE BLOOD COUNT 4.8 K/mm3 (4.0-10.0)
[2018-05-02 07:00] LABS: ALBUMIN 2.6 g/dl (3.4-5.0); ALK PHOS 95 U/L (45-117); ANION GAP 4 MMOL/L (8-16); BILIRUBIN,TOTAL 0.5 mg/dL (0.2-1); BLOOD UREA NITROGEN 31 mg/dL (7-18); CALCIUM 7.9 mg/dL (8.5-10.1); CHLORIDE 104 mmol/L (98-107); CO2 33 mmol/L (21-32); CREATININE 1.5 mg/dL (0.55-1.3); GLUCOSE,RANDOM 109 mg/dL (74-106); POTASSIUM 3.1 mmol/L (3.5-5.1); SGOT/AST 16 U/L (15-37); SGPT/ALT 15 U/L (13-61); SODIUM 140 mmol/L (136-145); TOT PROT 6.5 g/dl (6.4-8.2)
--- NOTE | 2018-05-02 08:51 | PN ---
Progress Note, Physician - Current Medication List Current Medications: Active Medications Acetaminophen (Tylenol -) 650 mg PO Q6HPO [facility] Last Admin: 05/02/18 05:48 Dose: 650 mg Amlodipine Besylate (Norvasc -) 10 mg PO DAILY [facility] Last Admin: 05/01/18 09:18 Dose: 10 mg Apixaban (Eliquis -) 5 mg PO BID [facility] Last Admin: 05/01/18 22:02 Dose: 5 mg Docusate Sodium (Colace -) 100 mg PO TID [facility] Last Admin: 05/02/18 05:48 Dose: 100 mg Hydralazine HCl (Apresoline -) 25 mg PO QID [facility] Last Admin: 05/01/18 22:02 Dose: 25 mg Potassium Chloride (Potassium Chloride 10 Meq Premix Ivpb -) 10 meq in 100 mls @ 100 mls/hr IVPB Q60M [facility] Stop: 05/02/18 10:44 Insulin Aspart (Novolog Vial Sliding Scale -) 1 vial SQ TIDAC [facility]; Protocol Last Admin: 05/02/18 06:30 Dose: Not Given Levetiracetam (Keppra -) 750 mg PO BID [facility] Last Admin: 05/01/18 22:01 Dose: 750 mg Levothyroxine Sodium (Synthroid -) 75 mcg PO AM [facility] Last Admin: 05/02/18 06:30 Dose: 75 mcg Metoprolol Succinate (Toprol Xl -) 100 mg PO DAILY [facility] Last Admin: 05/01/18 09:18 Dose: 100 mg Rosuvastatin Calcium (Crestor -) 10 mg PO HS [facility] Last Admin: 05/01/18 22:02 Dose: 10 mg Sitagliptin Phosphate (Januvia -) 50 mg PO AM [facility] Last Admin: 05/02/18 06:30 Dose: 50 mg Tamsulosin HCl (Flomax -) 0.8 mg PO DAILY@0830 [facility] Last Admin: 05/01/18 09:18 Dose: 0.8 mg Valsartan (Diovan -) 320 mg PO DAILY [facility] Last Admin: 05/01/18 09:19 Dose: 320 mg - Objective Vital Signs: Vital Signs Temperature 98.4 F 05/02/18 05:57 Pulse Rate 52 L 05/02/18 05:57 Respiratory Rate 20 05/02/18 05:57 Blood Pressure 155/78 05/02/18 05:57 O2 Sat by Pulse Oximetry (%) 100 05/01/18 21:00 Cardiovascular: Yes: S1, S2 Respiratory: Yes: Regular, CTA Bilaterally Gastrointestinal: Yes: Normal Bowel Sounds, Soft Labs: CBC, BMP 05/02/18 05:30 05/02/18 05:30 INR, PTT INR 1.22 (0.83-1.09) H 05/01/18 15:35 Assessment/Plan - Problems (1) Altered mental status Assessment/Plan: -brain CT scan shows no definitive changes -BC Microbiology 04/30/18 17:30 Blood - Peripheral Venous Blood Culture - Preliminary NO GROWTH OBTAINED AFTER 24 HOURS, INCUBATION TO CONTINUE FOR 4 DAYS. 04/30/18 17:30 Blood - Peripheral Venous Blood Culture - Preliminary NO GROWTH OBTAINED AFTER 24 HOURS, INCUBATION TO CONTINUE FOR 4 DAYS. Code(s): R41.82 - ALTERED MENTAL STATUS, UNSPECIFIED Qualifiers: Altered mental status type: unspecified Qualified Code(s): R41.82 - Altered mental status, unspecified (2) Afib Assessment/Plan: -continue Eliquis BID and metoprolol -tele monitoring -echo ordered Code(s): I48.91 - UNSPECIFIED ATRIAL FIBRILLATION Qualifiers: (3) BPH (benign prostatic hyperplasia) Assessment/Plan: -continue Tamsulosin Code(s): N40.0 - BENIGN PROSTATIC HYPERPLASIA WITHOUT LOWER URINRY TRACT SYMP (4) Diabetes mellitus Assessment/Plan: -[facility] -Sitagliptan -diabetic diet Code(s): E11.9 - TYPE 2 DIABETES MELLITUS WITHOUT COMPLICATIONS (5) Hypertension Assessment/Plan: -continue with almodipine, valsartan, hydralazine Code(s): I10 - ESSENTIAL (PRIMARY) HYPERTENSION Qualifiers: Hypertension type: essential hypertension Qualified Code(s): I10 - Essential (primary) hypertension (6) Hypothyroid Assessment/Plan: -continue levothyroxine Code(s): E03.9 - HYPOTHYROIDISM, UNSPECIFIED Qualifiers: Hypothyroidism type: unspecified Qualified Code(s): E03.9 - Hypothyroidism , unspecified (7) Seizure Assessment/Plan: -continue keppra -fall precaution Code(s): R56.9 - UNSPECIFIED CONVULSIONS
[2018-05-02] MEDS: APIXABAN 5 MG TABLET PO SCH ×2 (09:25→22:58)
[2018-05-02] MEDS: amLODIPine BESYLATE 10 MG TABLET (FP) PO SCH (09:25)
[2018-05-02] MEDS: levETIRAcetam 250 MG TABLET (FP) PO SCH ×2 (09:25→22:58)
[2018-05-02] MEDS: hydrALAZINE HCL 25 MG TABLET (FP) PO SCH ×4 (09:25→22:57)
[2018-05-02] MEDS: KCL 10 MEQ IVPB 10 MEQ/100 ML INFUS.BAG IVPB SCH ×2 (09:25→11:39)
[2018-05-02] MEDS: TAMSULOSIN HCL 0.4 MG CAP PO SCH (09:25)
[2018-05-02] MEDS: VALSARTAN 160 MG TABLET (UD) PO SCH (09:26)
--- NOTE | 2018-05-02 10:38 | CONSULT ---
Admitting History and Physical - Past Medical History [employer] RE[employer]ER: Yes: Other (cerebral aneurysm has two titanium clips) Cardiovascular: Yes: AFIB, Deep Vein Thrombosis, HTN, Hyperlipdemia Renal/: Yes: Renal Inusuff Musculoskeletal: Yes: Hemiparesis, Hemiplegia Endocrine: Yes: Diabetes Mellitus, Hypothyroidism - Past Surgical History Past Surgical History: Yes: Nephrectomy (right) - Smoking History Smoking history: Former smoker Have you smoked in the past 12 months: No Aproximately how many cigarettes per day: 0 - Alcohol/Substance Use Hx Alcohol Use: No History of Substance Use: reports: None - Social History ADL: Support Services Occupation: Disabled, History of Recent Travel: No History - Admission Reason For Visit: ALTERED MENTAL STATUS - Hearing Hearing: Normal Speech Evaluation - Communication Primary Language: HUNGARIAN Communication: Yes: Within Normal Limits, Simple Responses Oral Expression Ability: Yes: No Impairment - Speech Production Apraxia: No Able to Make Needs Known: Yes: WNL Intelligibility: Yes: Mildly Impaired - Speech Characteristics Voice Loudness: Normal Voice Pitch: Yes: Normal Voice Phonatory-based Quality: Yes: Normal Speech Pattern: Normal Nasal Resonance: Normal Articulation: Yes: Precise (pa tik ka WFL) Dysfluency: Yes: Tonic Rate of Speech: Intact Voice Comment: Vocal quality is WFL for environment. - Language/Auditory Comprehension Follows: Yes: 1 Stage Simple Commands (WFL), 2 Stage Simple Commands (WFL) Observation: Able to respond to yes/no queries: Yes, Yes/No Confusion: No, Comprehends Conversational Speech: Yes, Benefits from Slow Speech: No, Benefits from Repetiton: No, Benefits from Increased Volume of Speech: No - Language/Verbal Expression Able to Respond to Simple Queries: Yes: WNL Able to Communicate Wants and Needs: Yes: WNL Functional Communication Status: Yes: WNL Aware of Errors: Yes Attempts to Correct Errors: Yes Use of Gestures: No Written Expression: Not examined Reading Comprehension: Not examined Calculations: Not examined Attention: Yes: Intact - Memory/Perception FPC Memory: Yes: WNL Short Term Memory: Yes: WNL - Swallow Evaluation/Bedside Assessment Current Nutritional Intake: Regular (diabetic diet), Thin Liquids Oral Secretions: Yes: WFL Tracheostomy Present: No Patient on Ventilator: No Dentition: Yes: Adequate (adequate condition.) Facial Symmetry at Rest: Facial Droop Left Facial Symmetry on Retraction: Facial Droop Left Facial Movement: Controlled Sensation: Reduced Left Facial Comment: WFL for speech and swallowing purposes Jaw Position: Closed at Rest Against Resistance Opening: Weak (left side) Against Resistance Closing: Normal Pucker Lips: Normal Smile: Droops Left Lips, Comment: left side weakness observed but WFL Lingual Movement: Normal Lingual Speed of Movement: Normal Lingual Movement Strgth Against Opposition: Normal Lingual Movement Characteristics: Normal Lingual Comment: WFL for speech and swallowing purposes Soft Palate Description: Normal Color Hard Palate Description: Normal Color Gag Reflex: Strong Velopharyngeal Movement: Normal Laryngeal Elevation: WFL Laryngeal Movement: Able to Palpate Needs Assistance: Yes Rate of Intake: WFL Bolus Size: WFL Labial Seal: WFL Chewing: WFL Oral Prep Time: WFL A-P Transit: WFL Pocketing: None Timing of Swallow: WFL Odynophagia: Oral Coughing/Throat Clear: No Change in Voice: No Other Findings/Remarks: 68 yo male seen at bedside for swallow eval to r/o dysphagia. Pt is verbal, A& Ox2 cooperative. Admitted to [facility] for AMS and being treated for PNA. Pt presents with left side paresis, PMHX includes A-fib, CVA, HTN, HLD, BPH, DM, and cerebral aneurysm. Current diet diabetic solid with thin liquids. Pt observed at breakfast consuming bite sized solids and puree with assistance revealed good acceptance, adequate chewing and transport. Pharyngeal swallows appears timely. One subtle cough during this session. NO changes in respiration and voicing after the swallow. Thin liquid trials via cup and straw were unremarkable for dysphagia at bedside and this time. Recommendations - Speech Evaluation, Impression/Plan Impression: 68 yo male is able to tolerate diabetic regular solids with thin liquids at bedside without s/s of aspiration at this time. Speech and airway protection are [facility] Recommended Therapies: Other (consider speech intervention for strengthening left side facial features) Intermediate Goals: tolerate the least restrictive diet without s/s of aspiration Short Term Goals: tolerate purees, diabetic regular solids with thin liquids with out s/s of aspiration - Dysphagia Impressions/Plan Swallowing Skills: WF Dysphagia Impressions: Minimal Impairment, Risk of Aspiration *Silent aspiration: cannot be R/O at bedside Dysphagia Treatment Plan: Small Bites, Safe Rate, Elevate HOB during feed, Other (monitor pulmonary status and nutritional intake. Oral care after meals) Dysphagia Evaluation Summary: continue current diet of diabetic solids with thin liquids as tolerate. Meds can be given whole with water. Observe standard aspiration precautions. Results given to rn discharge and PCP via chart. DESK REPRESENTATIVE to follow up - Recommendations Diet Consistency: Dietary Restrictions/MD (diabetic solids) Medication Administration: Whole with water Liquids: Thin Liquids
--- NOTE | 2018-05-02 11:30 | CONSULT ---
Consult - text type - Consultation Consultation Note: NEUROLOGY CONSULT APPRECIATED: Events reviewed and discussed with staff. at bedside providing history. 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 Last seen by me in consult 08/23/17. Has been at [facility] x 3 years with recurrent hospital admissions. Last admission due to brief seizure activity while at [place]. S/P Nephrectomy, R TKR, R frontal/temporal Craniotomy and endo clips in R MCA. Maintained on amlodipine, abixaban, ferrous sulfate, hydralazine, levothyroxine , metoprolol, olmesartan, rosuvastatin, sitagliptan, tamsulosin, keppra 750 BID Here after reports of elevated BP and initially headache and blurred vision, since resolved with control of BP. Was diagnosed with UTI and PNA at [place], started on levaquin, since D/C'd. Today c/o R calf and leg pain. Coughing up mucus and wearing o2 currently. WBC 4.8 MCV 70.4 CRP 0.6 B12 581 UA neg; Chest xray limited view Head CT (reviewed): Mod atrophy, old R basal ganglia and temporal lobe stroke, vascular coils in R MCA, Ex-Vacuo hydrocephalus. Unchanged from 12/26. Admission BP 162/103 INDY: Obese. Oral temp 99. Restricted ROM of neck in all directions. Cor reg. No bruit. Pos Abhishek's on R. Contractures of L elbow and knee. Wearing diaper. NEURO: Mentation/Speech: Ox [facility]. May corrected to April,. Venkat Wisdom. CNII-CNXII: Mild L facial. EOM intact. Full binocular quiñones appreciated. Gag ok. Motor: spastic L hemiparesis. Strong R grasp. Brisk reflexes throughout. B/L Babinski's. Coordination: No R FTN dystaxia. Sensation: Decreased to pinch on L. Impression: 1. Mod. B/L cerebral dysfunction (previous R CVA, ? hydrocephalus, Mild OMS may be present) 2. Toxic Metabolic Encephalopathy (?R/O occult infection) 3. Seizures Suggest: Obtain rectal temp, hydration and antibiotics as required Continue keppra 750 mg po BID Order ESR, TSH, RPR Order carotid duplex Agree with cardio and telemetry Per records, pt remains on NOAC for paroxysmal afib? Bedside PT for PROM of extremities Pt continues to require SNF level of care. Thank you very much, Christoph Alvarado MD
--- NOTE | 2018-05-02 13:10 | ECHO ---
Name: ANDREW SEO RIVERDANIEL Exam:Adult Echocardiogram Study Date: 05/02/2018 10:34 AM Age: 68 yrs Reason For Study: HX PERICARDIAL EFFUSION Height: 65 in Weight: 191 lb BSA: 1.9 m2 MMode/2D Measurements & Calculations IVSd: 1.1 cm Ao root diam: 3.4 cm LVIDd: 5.7 cm LVIDs: 4.1 cm LVPWd: 0.92 cm EDV(Teich): 160.5 ml LVOT diam: 2.2 cm ESV(Teich): 75.6 ml Doppler Measurements & Calculations MV E max lane: 55.4 cm/sec Ao V2 max: 102.0 cm/sec MV A max lane: 98.3 cm/sec Ao max P.2 mmHg MV E/A: 0.56 Ao V2 mean: 67.7 cm/sec MV dec time: 0.12 sec Ao mean P.1 mmHg Ao V2 VTI: 19.3 cm DANAE(I,D): 3.4 cm2 DANAE(V,D): 3.4 cm2 LV V1 max P.5 mmHg SV(LVOT): 65.9 ml LV V1 mean P.8 mmHg LV V1 max: 93.1 cm/sec LV V1 mean: 62.9 cm/sec LV V1 VTI: 17.[address]: 3.4 cm/sec Med E/e': 16.[address]: 5.5 cm/sec Lat E/e': 10.1 Procedure A complete two-dimensional transthoracic echocardiogram was performed (2D, M-mode, Doppler and color flow Doppler). Technically limited study. Left Ventricle The left ventricle is normal in size. Left ventricular systolic function is normal. Diastolic dysfunc tion, Grade II, consistent with elevated left atrial pressure. Ratio E/E'= 16. No regional wall motion abno rmalities noted. Right Ventricle The right ventricle is normal size. The right ventricular systolic function is normal. Atria The left atrial size is normal. Right atrial size is normal. Mitral Valve The mitral valve is normal in structure and function. There is no mitral regurgitation noted. Tricuspid Valve The tricuspid valve is normal in structure and function. No tricuspid regurgitation. Aortic Valve The aortic valve is normal in structure and function. No aortic regurgitation is present. Pulmonic Valve The pulmonic valve is not well visualized. Great Vessels The aortic root is normal size. Pericardium/Pleura Small pericardial effusion (<1cm). Interpretation Summary Technically limited study The left ventricle is normal in size. Left ventricular systolic function is normal. No regional wall motion abnormalities noted. Diastolic dysfunction, Grade II, consistent with elevated left atrial pressure. Ratio E/E'= 16 The right ventricular systolic function is normal. The left atrial size is normal. Right atrial size is normal. No significant valvular regurgitations Small pericardial effusion (<1cm) When compared to study dated 04/07/18, likely no significant changes Viraj Rae MD 05/02/2018 01:09 PM
[2018-05-02 13:54] VITALS: BMI 31.6
--- NOTE | 2018-05-02 15:19 | PN ---
Progress Note (short form) - Note Progress Note: ID CONSULT DICTATED TOXIC METABOLIC ENCEPHALOPATHY R/O OCCULT INFECTION HX CVA PENDING SEPSIS W/U EMPIRIC CEFTRIAXONE + VANCOMYCIN
[2018-05-02] MEDS ORDERED: CEFTRIAXONE 2 GM/100 ML BAG IVPB SCH (15:30)
--- NOTE | 2018-05-02 15:49 | CONS ---
DATE OF CONSULTATION: 05/02/2018 HISTORY OF PRESENT ILLNESS: The patient is a 68-year-old man who is known from prior admission to [facility] with past medical history of a CVA involving the right basal ganglia in 2016, possible hemorrhagic CVA with subsequent left spastic hemiparesis, diabetes, chronic kidney disease who is admitted to [facility] with altered mental status. The patient evidently had been recently admitted to [facility] and discharged to a detention facility where he developed altered mental status. The patient underwent a CT of the head on April 30, which demonstrated no change from previous studies, April 06, 2018 and August 23, 2017. There was some right temporal lobe and right basal ganglia/right frontal subcortical white matter encephalomalacia. Vascular coils were noted in the right middle cranial nerves fossa in the area of the left cerebral artery bifurcation. There was some moderate ventricular dilatation. The patient's blood work on admission showed normal WBCs 5.8, hemoglobin 13.7, platelet count 154. Repeat done today showed stable WBC 4.8, hemoglobin 11.4, and platelet count borderline to slightly low at 128. Chemistry on admission demonstrated slightly low potassium at 3.2. Patient had an albumin normal at 3.4. Repeat blood work done today showed slight elevation in BUN 31, creatinine 1.5, low potassium 3.1, albumin low at 2.6, C-reactive protein borderline to slightly elevated at 0.6. The patient himself seems much more conversant per the notations from previous. He was evaluated by Neurology who diagnosed him with bilateral moderate cerebral dysfunction, toxic metabolic encephalopathy, and seizures. We were asked to see the patient in regards to rehabilitation evaluation. The patient also was seen by Speech Pathology who did not find any symptoms or signs of aspiration, tolerating regular consistency solids and thin liquids; therefore, no restrictions were made. PAST MEDICAL HISTORY: As above. Also, diabetes, hypertension, hyperlipidemia, MD, atrial fibrillation, DVT, chronic kidney disease, benign prostatic hypertrophy. PAST SURGICAL HISTORY: As above. Right nephrectomy, tracheostomy, G-tube, which has been removed. SOCIAL HISTORY: Per the patient, he lives with his family in an apartment. Per nursing, he has not ambulated in 3 years. It is uncertain if the patient is reliable. There was some notation he was a resident of detention facility. REVIEW OF SYSTEMS: No headache, no lightheadedness or dizziness. No blurry vision or double vision that is new. No difficulty speaking, per the patient. No chest pain or shortness of breath. He does complain of pain in his lower extremities as well as his left upper limb with movement and weakness diffusely but particularly in the left upper and left lower extremity with stiffness. No chest pain or shortness of breath. No fever or chills. No bowel or bladder change. No skin rash or breakdown. He has some numbness in the lower extremities as well as his left upper limb. PHYSICAL EXAMINATION: General: The patient is seen lying in bed. He is in no acute distress. HEENT: He is normocephalic and atraumatic. His extraocular muscles appear intact. Neck: Supple. Extremities: Without any pitting edema or calf tenderness. Neuromuscular: He is awake and alert and cooperative. His speech at times is slow to respond, but he does seem to respond appropriately. Cranial nerves, the patient has mild left central 7th nerve involvement but, otherwise, no obvious cranial nerves deficits. He has increase tone throughout his left upper and left lower extremity with some contractures in the left shoulder, elbow flexors, hip flexors, knee flexors with increased reflexes and diminished sensation to pinprick throughout his left upper and left lower extremity and possibility in the distal right lower extremity. He has good strength and range distally in his right hand and fairly good range and strength in the right shoulder. His hip girdle strength is mildly weak on the right side at 3/5 compared to knee extensors 4/5 and dorsiflexion and plantar flexion 4+/5. No gross arthritic change. Skin: No rash or breakdown. OVERALL IMPRESSION: 1. Deficits in mobility and activities of daily living, which is severe and possibly irreversible. 2. Cerebrovascular accident with spastic left hemiparesis. 3. Possible contractures of the left shoulder, left elbow, left hip, and left knee, which have been present at least since my last note from August 22, 2017. 4. Altered mental status, which appears to be improving. 5. Rule out toxic metabolic encephalopathy. 6. History of atrial fibrillation on anticoagulation with Eliquis. 7. History of deep vein thrombosis. 8. History of diabetes. 9. Chronic kidney disease. 10. Anemia. 11. Right nephrectomy. PLAN/SUGGESTION: 1. Physical therapy to include some range of motion, stretching particularly his left upper and left lower limb, strengthening of the right side, bed mobility if appropriate, family training. 2. When appropriate, out of bed or sitting up in bed as able. 3. Patient is on Eliquis. No further DVT prophylaxis needed. 4. Skin precautions. Avoid heel sacral pressure. 5. Neurologic follow up as directed. 6. May benefit from Botox injections as an outpatient 7. Patient may be a resident [facility] facility but uncertain, per the medical record. Return to detention facility either way. Thank you very much for this referral. MAGGIE MENDOZA M.D. [id number] MTDD
[2018-05-02] MEDS ORDERED: VANCOMYCIN 1 GRAM (PRE-DOCKED) 1,000 MG/250 ML BAG IVPB ONE (16:00)
[2018-05-02] MEDS ORDERED: DEXTROSE 5%-WATER 100 ML IVPB ONE (19:25)
[2018-05-02] MEDS ORDERED: CEFTRIAXONE 2 GM in DEXTROSE 5%-WATER 100 ML IVPB SCH (19:30)
[2018-05-02] MEDS: ROSUVASTATIN CA 10 MG TABLET (FP) PO SCH (22:58)
--- NOTE | 2018-05-02 23:43 | CONS ---
DATE OF CONSULTATION: DATE OF DICTATION: 05/02/2018 INFECTIOUS DISEASE CONSULTATION HISTORY OF PRESENT ILLNESS: The patient is a 68-year-old male evaluated for possible sepsis. He was admitted from the shelter with complaints of worsening headache and blurred vision. He was evaluated in the emergency room, where he was noted to have a markedly elevated blood pressure of 210/100. A CAT scan of the head was performed that showed no acute changes. He was seen in consultation by neurology. He was felt to have a toxic metabolic encephalopathy possibly secondary to occult sepsis. According to the shelter notes, he had been treated with Levaquin for a pneumonia and possible urinary tract infection. Chest x-ray at [facility] was a limited study, however showed no gross infiltrates. At the present time he is awake and alert. He is oriented. His mental status appears to have returned to baseline. He reports cough productive of yellowish sputum. He denies any chest pain or shortness of breath. He also complains of dysuria. No reports of high-grade fever or shaking chills. He has no history of infected decubitus ulcers. PAST MEDICAL HISTORY: Positive for ruptured cerebral aneurysm status post craniotomy, right CVA, atrial fibrillation, hypertension, hyperlipidemia, coronary artery disease, myocardial infarction, chronic kidney disease, hypothyroidism. PAST SURGICAL HISTORY: Status post craniectomy and nephrectomy. ALLERGIES: No known allergies. SOCIAL HISTORY: Resides in a [facility] facility. Denies tobacco or alcohol use. He is originally from [facility], has been living in the [facility] for many years. He was hospitalized earlier in April for seizure activity. LABORATORY DATA: White count 4.8, hematocrit 54.0, platelet count 128, BUN 31, creatinine 1.5, urinalysis 3 white cells. Liver enzymes normal. Chest x-ray, no acute infiltrate. However, the left base is obscured by his contracted hand, which is lying over the left lower lung field. SYSTEMS REVIEW: Neurologic: Positive for stroke. Ruptured cerebral aneurysm. Hemicraniotomy. Cardiac: Negative for chest pain or palpitations. Respiratory: As per HPI. Gastrointestinal: Negative vomiting or diarrhea. Genitourinary: As per HPI. PHYSICAL EXAMINATION: General: On exam, he is awake and alert. Vital signs: Temperature 98, blood pressure 158/84, pulse 52 regular, respirations 20 per minute. HEENT: Sclerae anicteric. Positive facial droop. Craniotomy wound healed. Cardiovascular: Heart sounds S1, S2. Lungs: Diminished breath sounds bilaterally. Abdomen: Soft, no tenderness elicited. No mass, rebound, or rigidity. Extremities: 1+ edema. There were contractures of the left upper and left lower extremity. There is excoriation present on the buttocks. No infected decubitus ulcers noted. IMPRESSION: 1. Altered mental status, rule out toxic metabolic encephalopathy secondary to occult infection. 2. Rule out healthcare acquired pneumonia. 3. Rule out urinary tract infection. Await sepsis workup. Empiric antibiotic coverage with ceftriaxone 2 g IV piggyback daily. Vancomycin 1 g IV piggyback stat dose. Aspiration precautions. Neurological workup. Will follow. Thank you for the kind referral. ALEX RASHID M.D. [id number]
[2018-05-03] MEDS: ACETAMINOPHEN 325 MG TABLET (FP) PO SCH ×3 (00:15→11:39)
--- NOTE | 2018-05-03 05:54 | PN ---
Progress Note (short form) - Note Progress Note: Episodic Note 05/03/2018@5:45am Called by nursing staff patient is bleeding from jose catheter which was removed and multiple clots with hematuria noted. Chart reviewed. 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 He was diagnosed with a UTI and PNA and started on levaquin, and therapy completed. He is currently on eliquis for history of atrial fibrillation and DVT. Last hemoglobin 11.4 and hematocrit 34.0 on 05/02. He is hemodynamically stable. He has no evidence of tachycardia and he is currently afebrile. Assessment/Plan: Hematuria with Multiple Blood Clots -Check CBC now. -Urology was consulted for further evaluation. -If continues to have active bleeding would hold eliquis. Further recommendations will be based on patient clinical status. Visit type - Emergency Visit Emergency Visit: Yes ED Registration Date: 04/30/18 Care time: The patient presented to the Emergency Department on the above date and was hospitalized for further evaluation of their emergent condition. - New Patient This patient is new to me today: Yes Date on this admission: 05/03/18 - Critical Care Critical Care patient: No
[2018-05-03] MEDS: LEVOTHYROXINE NA 75 MCG TABLET (FP) PO SCH ×2 (06:17→07:10)
[2018-05-03] MEDS: sitaGLIPtin PHOSPHATE 50 MG TABLET PO SCH (06:17)
[2018-05-03] MEDS: DOCUSATE SODIUM 100 MG CAPSULE (FP) PO SCH ×3 (06:17→22:25)
[2018-05-03] MEDS: INSULIN SLIDING SCALE (NOVOLOG) 1 VIAL SQ SCH ×3 (06:17→17:18)
[2018-05-03] MEDS: hydrALAZINE HCL 25 MG TABLET (FP) PO SCH ×5 (07:04→22:25)
--- NOTE | 2018-05-03 09:32 | PN ---
Progress Note, Physician - Current Medication List Current Medications: Active Medications Acetaminophen (Tylenol -) 650 mg PO Q6HPO [facility] Last Admin: 05/03/18 06:16 Dose: Not Given Amlodipine Besylate (Norvasc -) 10 mg PO DAILY [facility] Last Admin: 05/02/18 09:25 Dose: 10 mg Apixaban (Eliquis -) 5 mg PO BID [facility] Last Admin: 05/02/18 22:58 Dose: 5 mg Docusate Sodium (Colace -) 100 mg PO TID [facility] Last Admin: 05/03/18 06:17 Dose: Not Given Hydralazine HCl (Apresoline -) 25 mg PO QID [facility] Last Admin: 05/03/18 07:04 Dose: 25 mg Ceftriaxone Sodium 2 gm/ (Dextrose) 100 mls @ 200 mls/hr IVPB DAILY [facility] Last Admin: 05/02/18 19:26 Dose: 200 mls/hr Insulin Aspart (Novolog Vial Sliding Scale -) 1 vial SQ TIDAC [facility]; Protocol Last Admin: 05/03/18 06:17 Dose: Not Given Levetiracetam (Keppra -) 750 mg PO BID [facility] Last Admin: 05/02/18 22:58 Dose: 750 mg Levothyroxine Sodium (Synthroid -) 75 mcg PO AM [facility] Last Admin: 05/03/18 07:10 Dose: 75 mcg Metoprolol Succinate (Toprol Xl -) 100 mg PO DAILY [facility] Last Admin: 05/02/18 09:25 Dose: 100 mg Rosuvastatin Calcium (Crestor -) 10 mg PO HS [facility] Last Admin: 05/02/18 22:58 Dose: 10 mg Sitagliptin Phosphate (Januvia -) 50 mg PO AM [facility] Last Admin: 05/03/18 06:17 Dose: Not Given Tamsulosin HCl (Flomax -) 0.8 mg PO DAILY@0830 [facility] Last Admin: 05/02/18 09:25 Dose: 0.8 mg Valsartan (Diovan -) 320 mg PO DAILY [facility] Last Admin: 05/02/18 09:26 Dose: 320 mg - Objective Vital Signs: Vital Signs Temperature 98.4 F 05/03/18 06:00 Pulse Rate 52 L 05/03/18 06:00 Respiratory Rate 20 05/03/18 06:00 Blood Pressure 179/77 H 05/03/18 06:00 O2 Sat by Pulse Oximetry (%) 100 05/02/18 21:00 Cardiovascular: Yes: S1, S2 Respiratory: Yes: Regular, CTA Bilaterally Gastrointestinal: Yes: Normal Bowel Sounds, Soft Labs: INR, PTT INR 1.22 (0.83-1.09) H 05/01/18 15:35 Assessment/Plan - Problems (1) Altered mental status Assessment/Plan: -brain CT scan shows no definitive changes -BC Microbiology 04/30/18 17:30 Blood - Peripheral Venous Blood Culture - Preliminary NO GROWTH OBTAINED AFTER 24 HOURS, INCUBATION TO CONTINUE FOR 4 DAYS. 04/30/18 17:30 Blood - Peripheral Venous Blood Culture - Preliminary NO GROWTH OBTAINED AFTER 24 HOURS, INCUBATION TO CONTINUE FOR 4 DAYS. Code(s): R41.82 - ALTERED MENTAL STATUS, UNSPECIFIED Qualifiers: Altered mental status type: unspecified Qualified Code(s): R41.82 - Altered mental status, unspecified (2) Afib Assessment/Plan: -continue Eliquis BID and metoprolol -tele monitoring -echo ordered Code(s): I48.91 - UNSPECIFIED ATRIAL FIBRILLATION Qualifiers: (3) BPH (benign prostatic hyperplasia) Assessment/Plan: -continue Tamsulosin Code(s): N40.0 - BENIGN PROSTATIC HYPERPLASIA WITHOUT LOWER URINRY TRACT SYMP (4) Diabetes mellitus Assessment/Plan: -[facility] [facility] [place]Sitag[place] -diabetic diet Code(s): E11.9 - TYPE 2 DIABETES MELLITUS WITHOUT COMPLICATIONS (5) Hypertension Assessment/Plan: -continue with almodipine, valsartan, hydralazine Code(s): I10 - ESSENTIAL (PRIMARY) HYPERTENSION Qualifiers: Hypertension type: essential hypertension Qualified Code(s): I10 - Essential (primary) hypertension (6) Hypothyroid Assessment/Plan: -continue levothyroxine Code(s): E03.9 - HYPOTHYROIDISM, UNSPECIFIED Qualifiers: Hypothyroidism type: unspecified Qualified Code(s): E03.9 - Hypothyroidism , unspecified (7) Seizure Assessment/Plan: -continue keppra -fall precaution Code(s): R56.9 - UNSPECIFIED CONVULSIONS
[2018-05-03 09:40] LABS: HEMATOCRIT 37.5 % (35.4-49); HEMOGLOBIN 12.4 GM/dL (11.7-16.9); MCH 23.3 pg (25.7-33.7); MEAN CELL VOLUME 70.6 fl (80-96); MEAN PLT VOLUME 7.4 fl (7.5-11.1); PLATELET COUNT 136 K/MM3 (134-434); RBC 5.31 M/mm3 (4.00-5.60); RDW 16.9 % (11.9-15.9); WHITE BLOOD COUNT 5.6 K/mm3 (4.0-10.0)
[2018-05-03] MEDS ORDERED: DEXTROSE 5%-WATER 100 ML IVPB ONE (09:41)
[2018-05-03] MEDS: TAMSULOSIN HCL 0.4 MG CAP PO SCH (09:59)
[2018-05-03] MEDS: VALSARTAN 160 MG TABLET (UD) PO SCH (10:00)
[2018-05-03] MEDS: APIXABAN 5 MG TABLET PO SCH ×2 (10:01→22:25)
[2018-05-03] MEDS: levETIRAcetam 250 MG TABLET (FP) PO SCH ×2 (10:02→22:25)
[2018-05-03] MEDS: amLODIPine BESYLATE 10 MG TABLET (FP) PO SCH (10:03)
--- NOTE | 2018-05-03 10:19 | PN ---
Progress Note, WEB SERVICES ARCHITECT - Note Progress Note: 68 yo male seen at bedside for follow up to swallow eval with recommendations for regular solids with thin liquids. Chart review revealed pt is consuming 100 % of meals. Left side facial weakness still remains but appears slightly improved from yesterday. Speech is WNL at this time. Continue current diet of regular heart healthy solids with thin liquids as tolerated. Observe standard aspiration precautions. Results given to propellant charge zone assembler and PCP via chart.
[2018-05-03 10:20] LABS: ALK PHOS 100 U/L (45-117); ANION GAP 6 MMOL/L (8-16); BILIRUBIN,TOTAL 0.4 mg/dL (0.2-1); BLOOD UREA NITROGEN 19 mg/dL (7-18); CALCIUM 7.6 mg/dL (8.5-10.1); CHLORIDE 104 mmol/L (98-107); CO2 32 mmol/L (21-32); CREATININE 1.1 mg/dL (0.55-1.3); GLUCOSE,RANDOM 163 mg/dL (74-106); MAGNESIUM 1.9 mg/dL (1.8-2.4); SGOT/AST 16 U/L (15-37); SGPT/ALT 16 U/L (13-61); SODIUM 142 mmol/L (136-145); TOT PROT 7.3 g/dl (6.4-8.2)
[2018-05-03 10:27] LABS: POTASSIUM 2.9 mmol/L (3.5-5.1)
--- NOTE | 2018-05-03 11:07 | PN ---
Progress Note, Physician History of Present Illness: AWAKE, RESPONSIVE C/O OCCASIONAL COUGH YELLOWISH SPUTUM EPISODE OF HEMATURIA ?TRAUMATIC FROM AVERY AFEBRILE WBC WNL BC PRELIM (-) URINE C/S PENDING - Current Medication List Current Medications: Active Medications Acetaminophen (Tylenol -) 650 mg PO Q6HPO [facility] Last Admin: 05/03/18 06:16 Dose: Not Given Amlodipine Besylate (Norvasc -) 10 mg PO DAILY [facility] Last Admin: 05/03/18 10:03 Dose: 10 mg Apixaban (Eliquis -) 5 mg PO BID [facility] Last Admin: 05/03/18 10:01 Dose: 5 mg Docusate Sodium (Colace -) 100 mg PO TID [facility] Last Admin: 05/03/18 06:17 Dose: Not Given Hydralazine HCl (Apresoline -) 25 mg PO QID [facility] Last Admin: 05/03/18 10:05 Dose: Not Given Ceftriaxone Sodium 2 gm/ (Dextrose) 100 mls @ 200 mls/hr IVPB DAILY [facility] Last Admin: 05/02/18 19:26 Dose: 200 mls/hr Insulin Aspart (Novolog Vial Sliding Scale -) 1 vial SQ TIDAC [facility]; Protocol Last Admin: 05/03/18 06:17 Dose: Not Given Levetiracetam (Keppra -) 750 mg PO BID [facility] Last Admin: 05/03/18 10:02 Dose: 750 mg Levothyroxine Sodium (Synthroid -) 75 mcg PO AM [facility] Last Admin: 05/03/18 07:10 Dose: 75 mcg Metoprolol Succinate (Toprol Xl -) 100 mg PO DAILY [facility] Last Admin: 05/03/18 10:01 Dose: 100 mg Rosuvastatin Calcium (Crestor -) 10 mg PO HS [facility] Last Admin: 05/02/18 22:58 Dose: 10 mg Sitagliptin Phosphate (Januvia -) 50 mg PO AM [facility] Last Admin: 05/03/18 06:17 Dose: Not Given Tamsulosin HCl (Flomax -) 0.8 mg PO DAILY@0830 [facility] Last Admin: 05/03/18 09:59 Dose: 0.8 mg Valsartan (Diovan -) 320 mg PO DAILY [facility] Last Admin: 05/03/18 10:00 Dose: 320 mg - Objective Vital Signs: Vital Signs Temperature 98.4 F 05/03/18 06:00 Pulse Rate 52 L 05/03/18 06:00 Respiratory Rate 20 05/03/18 06:00 Blood Pressure 179/77 H 05/03/18 06:00 O2 Sat by Pulse Oximetry (%) 100 05/02/18 21:00 Constitutional: Yes: No Distress Eyes: Yes: Conjunctiva Clear Cardiovascular: Yes: Regular Rate and Rhythm, S1, S2 Respiratory: Yes: Diminished Gastrointestinal: Yes: Normal Bowel Sounds, Soft. No: Tenderness Extremities: Yes: Other (+ CONTRACTURES L UE/LE) Labs: CBC, BMP 05/03/18 09:00 05/03/18 09:00 INR, PTT INR 1.22 (0.83-1.09) H 05/01/18 15:35 Assessment/Plan TOXIC METABOLIC ENCEPHALOPATHY-IMPROVED R/O UTI ? PNEUMONIA AWAIT C/S
[2018-05-03] MEDS ORDERED: POTASSIUM CHLORIDE TABS 20 MEQ TABLET.ER (FP) PO ONE (11:30)
[2018-05-03] MEDS: AMOX TR/POT CLAV 875MG/125MG TABLETS (FP) PO SCH (17:17)
[2018-05-03] MEDS: ROSUVASTATIN CA 10 MG TABLET (FP) PO SCH (22:25)
[2018-05-04] MEDS: INSULIN SLIDING SCALE (NOVOLOG) 1 VIAL SQ SCH ×2 (06:46→12:01)
[2018-05-04] MEDS: LEVOTHYROXINE NA 75 MCG TABLET (FP) PO SCH (06:46)
[2018-05-04] MEDS: DOCUSATE SODIUM 100 MG CAPSULE (FP) PO SCH (06:46)
[2018-05-04] MEDS: ACETAMINOPHEN 325 MG TABLET (FP) PO SCH ×3 (06:47→12:02)
[2018-05-04] MEDS: sitaGLIPtin PHOSPHATE 50 MG TABLET PO SCH (06:47)
[2018-05-04 07:12] LABS: ANION GAP 4 MMOL/L (8-16); BLOOD UREA NITROGEN 22 mg/dL (7-18); CALCIUM 7.6 mg/dL (8.5-10.1); CHLORIDE 106 mmol/L (98-107); CO2 33 mmol/L (21-32); CREATININE 1.2 mg/dL (0.55-1.3); GLUCOSE,RANDOM 100 mg/dL (74-106); MAGNESIUM 2.2 mg/dL (1.8-2.4); POTASSIUM 3.4 mmol/L (3.5-5.1); SODIUM 144 mmol/L (136-145)
[2018-05-04] MEDS: TAMSULOSIN HCL 0.4 MG CAP PO SCH (09:25)
[2018-05-04] MEDS: amLODIPine BESYLATE 10 MG TABLET (FP) PO SCH (09:25)
[2018-05-04] MEDS: AMOX TR/POT CLAV 875MG/125MG TABLETS (FP) PO SCH (09:25)
[2018-05-04] MEDS: APIXABAN 5 MG TABLET PO SCH (09:26)
[2018-05-04] MEDS: hydrALAZINE HCL 25 MG TABLET (FP) PO SCH (09:26)
[2018-05-04] MEDS: VALSARTAN 160 MG TABLET (UD) PO SCH (09:26)
[2018-05-04] MEDS: levETIRAcetam 250 MG TABLET (FP) PO SCH (09:29)
--- NOTE | 2018-05-04 11:16 | PN ---
Progress Note, CHIEF OPERATOR LOCK TENDER - Note Progress Note: Selected Entries 05/04/18 05/04/18 05/04/18 02:16 09:37 10:00 Breakfast 100% Diet Tolerated Well Temperature 98.2 F 98.0 F Laboratory Tests 05/03/18 09:00 WBC 5.6 Tolerating diet. Impaired speech initiation, similar to baseline during previous admissions, per METAL SHEET ROLLER OPERATOR.
--- NOTE | 2018-05-04 11:49 | DS ---
Physical Examination Vital Signs: Vital Signs Temperature 98.0 F 05/04/18 09:37 Pulse Rate 53 L 05/04/18 10:00 Respiratory Rate 18 05/04/18 10:00 Blood Pressure 164/90 05/04/18 09:37 O2 Sat by Pulse Oximetry (%) 98 05/04/18 09:00 Cardiovascular: Yes: S1, S2 Respiratory: Yes: Regular, CTA Bilaterally Gastrointestinal: Yes: Normal Bowel Sounds, Soft Neurological: Yes: Alert, Oriented, Pre-Existing Deficit Labs: CBC, BMP 05/03/18 09:00 05/04/18 05:30 Discharge Summary Reason For Visit: ALTERED MENTAL STATUS Current Active Problems Altered mental status (Acute) Hospital Course: - Problems (1) Altered mental status Assessment/Plan: -brain CT scan shows no definitive changes -BC Microbiology 04/30/18 17:30 Blood - Peripheral Venous Blood Culture - Preliminary NO GROWTH OBTAINED AFTER 24 HOURS, INCUBATION TO CONTINUE FOR 4 DAYS. 04/30/18 17:30 Blood - Peripheral Venous Blood Culture - Preliminary NO GROWTH OBTAINED AFTER 24 HOURS, INCUBATION TO CONTINUE FOR 4 DAYS. on po abx Code(s): R41.82 - ALTERED MENTAL STATUS, UNSPECIFIED Qualifiers: Altered mental status type: unspecified Qualified Code(s): R41.82 - Altered mental status, unspecified (2) Afib Assessment/Plan: -continue Eliquis BID and metoprolol -tele monitoring -echo ordered Code(s): I48.91 - UNSPECIFIED ATRIAL FIBRILLATION Qualifiers: (3) BPH (benign prostatic hyperplasia) Assessment/Plan: -continue Tamsulosin Code(s): N40.0 - BENIGN PROSTATIC HYPERPLASIA WITHOUT LOWER URINRY TRACT SYMP (4) Diabetes mellitus Assessment/Plan: -[facility] -Sitagliptan -diabetic diet Code(s): E11.9 - TYPE 2 DIABETES MELLITUS WITHOUT COMPLICATIONS (5) Hypertension Assessment/Plan: -continue with almodipine, valsartan, hydralazine Code(s): I10 - ESSENTIAL (PRIMARY) HYPERTENSION Qualifiers: Hypertension type: essential hypertension Qualified Code(s): I10 - Essential (primary) hypertension (6) Hypothyroid Assessment/Plan: -continue levothyroxine Code(s): E03.9 - HYPOTHYROIDISM, UNSPECIFIED Qualifiers: Hypothyroidism type: unspecified Qualified Code(s): E03.9 - Hypothyroidism , unspecified (7) Seizure Assessment/Plan: -continue keppra -fall precaution Code(s): R56.9 - UNSPECIFIED CONVULSIONS - Instructions Disposition: [facility] - Home Medications Comprehensive Discharge Medication List: Ambulatory Orders Aa/[place] Craig,[place]/Arg/C/Zn/Cu [Lps Critical Care Liquid] 30 ml PO DAILY Acetaminophen 650 mg PO Q6H 04/06/18 Amlodipine Besylate 10 mg PO DAILY 04/06/18 Apixaban [Eliquis -] 5 mg PO BID 04/06/18 Docusate Sodium [Colace -] 100 mg PO TID 04/06/18 Ferrous Sulfate 325 mg PO DAILY 04/06/18 Hydralazine HCl 25 mg PO QID 04/06/18 Levothyroxine [Synthroid -] 75 mcg PO DAILY 04/06/18 Metoprolol Succinate [Toprol XL -] 100 mg PO DAILY 04/06/18 Olmesartan Medoxomil [Benicar] 40 mg PO DAILY 04/06/18 Polyvinyl Alcohol [Artificial Tears] 2 drop OD QID 04/06/18 Rosuvastatin [Crestor -] 10 mg PO HS 04/06/18 Silver Sulfadiazine 1% Top Cr [Silvadene -] 1 applic TP DAILY 04/06/18 Sitagliptin Phosphate [Januvia] 50 mg PO DAILY 04/06/18 Sodium Chloride [Saline Mist] 1 spray NS TID 04/06/18 Tamsulosin HCl 0.8 mg PO DAILY 04/06/18 Amox-Tr/K Cl [Augmentin 875-125mg Tablet -] 1 tab PO BID@0800,1730 tablet 05/04
[2018-05-04 12:01] VITALS: BP 153/85; PULSE 56; TEMP 98.3
--- NOTE | 2018-05-04 13:15 | PN ---
Progress Note (short form) - Note Progress Note: NEUROLOGY PROGRESS: Events reviewed and discussed with staff. at bedside. Consults read and appreciated. Currently on Augmentin for possible PNA vs. UTI. UA, C & S negative. Blood cx x 2 negative. Reports less pain in R calf now - duplex obtained and neg for DVT. Continues to report coughing up mucus and now itchy scalp and eyes. CRP 0.6 ESR 26 TSH 2.52 B12 581 Carotid duplex: no sig. stenosis despite limited study INDY: BPs 120-150/60s-90s. Restricted ROM of neck in all directions. Contractures of L elbow and knee. Wearing diaper. Scratches to back of head. NEURO: Mentation/Speech: Mild, non-fluent aphasia. Ox [facility]. February corrected to April,. Grzegorz Wisdom. CNII-CNXII: Mild L facial. EOM intact. Full binocular quiñones appreciated. Gag ok. Motor: spastic L hemiparesis. Strong R grasp. Brisk reflexes throughout. L Babinski. Coordination: No R FTN dystaxia. Sensation: Decreased to pinch on L. Impression: 1. Mod. B/L cerebral dysfunction (s/p right MCA aneursymal hemorrhage; chronic, stable,hydrocephalus?). 2. Seizures 3. ? Adverse drug reaction (pruritis due to amoxicillin) Suggest: Continue keppra 750 mg po BID Await RPR Maintain systolic BPs 120s-130s Bedside PT for PROM of extremities Pt continues to require SNF level of care Thank you very much, Christoph Alvarado MD
== END 2018-05-04 14:53 | DRG 72 ==
LOC: JER 16:16 → JERBED 20:56 → J4W 05-01 03:53
PROVIDERS: ADMIT Internal Medicine; ATTEND Family Medicine
DX: G93.41 Metabolic encephalopathy (principal); R56.9 Unspecified convulsions; I48.91 Unspecified atrial fibrillation; N40.0 Benign prostatic hyperplasia without lower urinary tract symptoms; I25.10 Atherosclerotic heart disease of native coronary artery without angina pectoris; E11.9 Type 2 diabetes mellitus without complications; I10 Essential (primary) hypertension; E78.5 Hyperlipidemia, unspecified; G81.94 Hemiplegia, unspecified affecting left nondominant side; E03.9 Hypothyroidism, unspecified; R31.9 Hematuria, unspecified; R41.82 Altered mental status, unspecified
CPT/HCPCS: 36415; 70450-TC; 71045-TC-FY; 80048; 80053; 81003; 82550; 82607; 82962; 83735; 83880; 84100; 84443; 84479; 84484; 85025; 85027; 85610; 85651; 85730; 86140; 87040; 87086; 93005; 93010; 93306-TC; 93880-TC; 93971-TC; 97161-GP; 99283-25

== ENCOUNTER 2018-07-11 09:36 | Observation (INO) | payer BC, OTHER ==
--- NOTE | 2018-07-11 10:31 | PDOC ---
History of Present Illness - General Chief Complaint: Blood Pressure Problem Stated Complaint: Chest Pain Time Seen by Provider: 07/11/18 09:45 History Source: Patient Exam Limitations: No Limitations - History of Present Illness Initial Comments: 07/11/18 10:25 The patient is a 68-year-old gentleman history of A. fib, CVA hemiplegia, hypertension, hyperlipidemia, cerebral aneurysm status post clipping, CAD, CKD, diabetes, hypothyroidism [facility] for evaluation of high blood pressure and chest pain. The patient notes that he had approximate 30 minutes of right-sided chest pain radiating to the right shoulder associated with nausea and shortness of breath. The patient states his chest pain has since resolved. Per EMS the patient's blood pressure was noted to be in the 200s systolic he was given hydraliazine and his blood pressure since improved to the 140s systolic. THe patient has also endorses some cough for the last several days without associated noisy breathing w/o fevers, hemoptysis, leg pain/swelling. denies abd pain, dairrhea, dysuria PMD: Dr Ruiz Past History - Past Medical History Allergies/Adverse Reactions: Allergies Allergy/AdvReac Type Severity Reaction Status Date / Time No Known Allergies Allergy Verified 07/11/18 11:03 Home Medications: Ambulatory Orders Aa/[place]hey/Arg/C/Zn/Cu [Lps Critical Care Liquid] 30 ml PO DAILY Acetaminophen 650 mg PO Q6H 04/06/18 Amlodipine Besylate 10 mg PO DAILY 04/06/18 Apixaban [Eliquis -] 5 mg PO BID 04/06/18 Docusate Sodium [Colace -] 100 mg PO TID 04/06/18 Hydralazine HCl 25 mg PO QID 04/06/18 Levothyroxine [Synthroid -] 75 mcg PO DAILY 04/06/18 Metoprolol Succinate [Toprol XL -] 100 mg PO DAILY 04/06/18 Rosuvastatin [Crestor -] 10 mg PO HS 04/06/18 Sitagliptin Phosphate [Januvia] 50 mg PO DAILY 04/06/18 Tamsulosin HCl 0.8 mg PO DAILY 04/06/18 Donepezil HCl [Aricept -] 5 mg PO DAILY 07/11/18 Gabapentin [Neurontin -] 100 mg PO DAILY 07/11/18 Nitroglycerin Sublingual [Nitrostat -] 0.4 mg SL ONCE PRN 07/11/18 Valsartan 320 mg PO DAILY 07/11/18 Zinc Oxide 0 gm TP BID 07/11/18 levETIRAcetam [Keppra Xr -] 750 mg PO BID 07/11/18 Anemia: Yes Asthma: No Cancer: No Cardiac Disorders: Yes (atrial fib) CVA: Yes (Right basal ganglia bleed (10/2015)) COPD: No CHF: No Dementia: No Diabetes: Yes GI Disorders: No Disorders: No HTN: Yes Hypercholesterolemia: Yes Liver Disease: No Seizures: No Thyroid Disease: Yes (hypo) - Surgical History Abdominal Surgery: No Appendectomy: No Cardiac Surgery: No Cholecystectomy: No Lung Surgery: No Neurologic Surgery: Yes (ANEURSYM) Orthopedic Surgery: Yes (right knee) - Immunization History Immunization Up to Date: Yes - Suicide/Smoking/Psychosocial Hx Smoking Status: No Smoking History: Unknown if ever smoked Have you smoked in the past 12 months: No Number of Cigarettes Smoked Daily: 0 Hx Alcohol Use: No Drug/Substance Use Hx: No Substance Use Type: None Hx Substance Use Treatment: No Cardiac Specific PMH - Complaint Specific PMHX Pacemaker: No Review of Systems - Review of Systems Able to Perform ROS?: Yes Comments:: 07/11/18 10:31 Constitutional - no reported Fever, Chills, HEENT: no reported vision changes, sore throat Respiratory: +cough no reported cough, sob, hemoptysis Cardiac: + chest pain, no reported palpitations, light headedness, leg swelling Abd/GI: no reported abd pain, nausea, vomiting, blood per rectum, melena, diarrhea : no reported dysuria, frequency, discharge Musculskelatal - no reported back pain, joint swelling skin - no reported bruising, erythema, rash neurological: no reported headache, numbness, focal weakness, tingling, ataxia, hematologic: no reported easy bruising, easy bleeding GENERAL: The patient is awake, alert, and fully oriented, Nontoxic - in no acute distress. HEAD: Normocephalic, atraumatic. EYES: extraocular movements intact, sclera anicteric, conjunctiva clear. ENT: Normal voice, Moist mucous membranes. NECK: Normal range of motion, supple LUNGS: Breath sounds equal, clear to auscultation bilaterally. No wheezes, no rhonchi, no rales. HEART: Regular rate and rhythm, normal S1 and S2 without murmur, rub or gallop. ABDOMEN: Soft, nontender, No guarding, no rebound. . No CVA tenderness EXTREMITIES: Normal range of motion, no edema. No clubbing or cyanosis. No cords, erythema, or tenderness. NEUROLOGICAL: No facial assymetry, Normal speech, contracted LUE and LLE PSYCH: Normal mood, normal affect. SKIN: Warm, Dry, normal turgor, superficial sacral wound *Physical Exam - Vital Signs Last Vital Signs Temp Pulse Resp BP Pulse Ox 97.8 F 75 18 146/77 99 07/11/18 09:45 07/11/18 09:45 07/11/18 09:45 07/11/18 10:19 07/11/18 10:19 Heart Score/ECG Review - ECG Impressions Comment:: 07/11/18 10:32 Twelve-lead EKG was performed and reviewed by me. There is normal sinus rhythm with a normal rate. Rate of 66 Left axis deviation T-wave inversion in aVL ED Treatment Course - LABORATORY CBC & Chemistry Diagram: 07/11/18 10:50 07/11/18 10:50 - ADDITIONAL ORDERS Additional order review: Laboratory Results 07/11/18 07/11/18 10:50 10:50 PT with INR 16.10 H INR 1.36 H Sodium 143 Potassium 3.5 Chloride 105 Carbon Dioxide 34 H Anion Gap 4 L BUN 21 H Creatinine 1.0 Est GFR (CKD-EPI)AfAm 89.86 Est GFR (CKD-EPI)NonAf 77.54 Random Glucose 133 H Calcium 8.6 Total Bilirubin 0.6 AST 58 H ALT 42 Alkaline Phosphatase 112 Creatine Kinase 1089 H Troponin I 0.09 H Total Protein 8.0 Albumin 3.0 L 07/11/18 10:50 RBC 5.55 MCV 69.7 L MCHC 31.9 L RDW 16.2 H MPV 8.3 D Neutrophils % 68.4 Lymphocytes % 19.5 Monocytes % 6.8 Eosinophils % 4.6 H Basophils % 0.7 - RADIOLOGY Radiology Studies Ordered: Category Date Time Status CHEST X-RAY PORTABLE* [RAD] Stat Radiology 07/11/18 09:59 Completed Medical Decision Making - Medical Decision Making 07/11/18 10:33 68-year-old gentleman history of multiple medical problems presenting with 30 minute episode of chest pain associated with shortness of breath and diaphoresis that is since resolved. Differential includes but not limited to acute coronary syndrome, consider possible pneumonia the patient also has been having cough. We'll obtain blood work, troponin, chest x-ray, EKG History of present monitoring and evaluation advisor will discuss with PMD regarding disposition 07/11/18 12:30 The patient's lab work was reviewed troponin is 0.09 with a CK in the 1000th range. We'll admit the patient for further management Case was discussed with Dr. Megan rubin with tele observaion Case discussed in detail with admitting physician including history, physical exam and ancillary studies. Admitting physician has assumed care for the patient, will follow all pending diagnostics and will complete the evaluation and treatment. *DC/Admit/Observation/Transfer Diagnosis at time of Disposition: Chest pain Qualifiers: Chest pain type: unspecified Qualified Code(s): R07.9 - Chest pain, unspecified Hypertension Qualifiers: Hypertension type: unspecified Qualified Code(s): I10 - Essential (primary) hypertension - Discharge Dispostion Condition at time of disposition: Stable Decision to Admit order: Yes - Referrals Referrals: Roxana Ruiz MD [Primary Care Provider] - - Patient Instructions - Post Discharge Activity
--- NOTE | 2018-07-11 11:06 | EKG ---
Test Reason : Blood Pressure : / mmHG Vent. Rate : 066 BPM Atrial Rate : 066 BPM P-R Int : 262 ms QRS Dur : 114 ms QT Int : 470 ms P-R-T Axes : 010 -50 122 degrees QTc Int : 492 ms SINUS RHYTHM WITH 1ST DEGREE A-V BLOCK LEFT AXIS DEVIATION MODERATE VOLTAGE CRITERIA FOR LVH, MAY BE NORMAL VARIANT CANNOT RULE OUT SEPTAL INFARCT (CITED ON OR BEFORE 30-APR-2018) T WAVE ABNORMALITY, CONSIDER LATERAL ISCHEMIA ABNORMAL ECG WHEN COMPARED WITH ECG OF 30-APR-2018 17:00, NO SIGNIFICANT CHANGE IS FOUND Confirmed by LARISSA CALVO MD ([id number]) on 07/11/2018 11:06:37 AM Referred By: Confirmed By:LARISSA CALVO MD
[2018-07-11 11:23] LABS: BASO % 0.7 % (0-2.0); EOS % 4.6 % (0-4.5); HEMATOCRIT 38.7 % (35.4-49); HEMOGLOBIN 12.3 GM/dL (11.7-16.9); LYMPH % 19.5 % (8-40); MCH 22.2 pg (25.7-33.7); MCHC 31.9 g/dl (32.0-35.9); MEAN CELL VOLUME 69.7 fl (80-96); MEAN PLT VOLUME 8.3 fl (7.5-11.1); MONO % 6.8 % (3.8-10.2); NEUT % 68.4 % (42.8-82.8); PLATELET COUNT 169 K/MM3 (134-434); RBC 5.55 M/mm3 (4.00-5.60); RDW 16.2 % (11.9-15.9); WHITE BLOOD COUNT 5.9 K/mm3 (4.0-10.0)
[2018-07-11 11:36] LABS: INR 1.36 (0.83-1.09); PROTHROMBIN TIME (PATIENT) 16.1 SEC (9.7-13.0)
[2018-07-11 11:54] LABS: BILIRUBIN,TOTAL 0.6 mg/dL (0.2-1); CALCIUM 8.6 mg/dL (8.5-10.1); POTASSIUM 3.5 mmol/L (3.5-5.1)
[2018-07-11] MEDS ORDERED: ASPIRIN 81 MG CHEWABLE TABLETS PO ONE (12:31)
--- NOTE | 2018-07-11 12:41 | CON.CARD ---
Consult Consult Specialty:: Cardiology Referred by:: Dontrell Hobbs MD Reason for Consultation:: Chest pain - History of Present Illness Chief Complaint: Chest pain History of Present Illness: Patient is a 68 year old male with underlying history of PAF on NOAC, HTN, NIDDM , hypercholesterolemia and hypothyroidism, CVA, cerebral aneurysm s/p endoclip 2012, CKD, CAD [place] 2014, hemiplegia and hemiparesis 2/2 right basal ganglia bleed (2015), seizure d/o, sent from a [facility] for evaluation of high blood pressure and chest pain. The patient notes that he had approximate 30 minutes of right-sided chest pain radiating to the right shoulder associated with nausea and shortness of breath. The patient states his chest pain has since resolved. Per EMS the patient's blood pressure was noted to be in the 200s systolic he was given hydralazine and his blood pressure since improved to the 140s systolic. - History Source History Provided By: Medical Record Limitations to Obtaining History: Poor Historian - Past Medical History [employer]OT [employer]OL[employer]ER: Yes: Other (cerebral aneurysm has two titanium clips) Cardio/Vascular: Yes: AFIB, Deep Vein Thrombosis, HTN, Hyperlipdemia Renal/: Yes: Renal Inusuff Musculoskeletal: Yes: Hemiparesis, Hemiplegia Endocrine: Yes: Diabetes Mellitus, Hypothyroidism Additional Medical History: ? deep vein thrombosis - Past Surgical History Past Surgical History: Yes: Nephrectomy (right) - Alcohol/Substance Use Hx Alcohol Use: No History of Substance Use: reports: None - Smoking History Smoking history: Unknown if ever smoked Have you smoked in the past 12 months: No Aproximately how many cigarettes per day: 0 - Social History ADL: Support Services Occupation: Disabled, History of Recent Travel: No Home Medications - Allergies Allergies/Adverse Reactions: Allergies Allergy/AdvReac Type Severity Reaction Status Date / Time No Known Allergies Allergy Verified 07/11/18 11:03 - Home Medications Home Medications: Ambulatory Orders Aa/[place] Craig,[place]/Arg/C/Zn/Cu [Lps Critical Care Liquid] 30 ml PO DAILY Acetaminophen 650 mg PO Q6H 04/06/18 Amlodipine Besylate 10 mg PO DAILY 04/06/18 Apixaban [Eliquis -] 5 mg PO BID 04/06/18 Docusate Sodium [Colace -] 100 mg PO TID 04/06/18 Hydralazine HCl 25 mg PO QID 04/06/18 Levothyroxine [Synthroid -] 75 mcg PO DAILY 04/06/18 Metoprolol Succinate [Toprol XL -] 100 mg PO DAILY 04/06/18 Rosuvastatin [Crestor -] 10 mg PO HS 04/06/18 Sitagliptin Phosphate [Januvia] 50 mg PO DAILY 04/06/18 Tamsulosin HCl 0.8 mg PO DAILY 04/06/18 Donepezil HCl [Aricept -] 5 mg PO DAILY 07/11/18 Gabapentin [Neurontin -] 100 mg PO DAILY 07/11/18 Nitroglycerin Sublingual [Nitrostat -] 0.4 mg SL ONCE PRN 07/11/18 Valsartan 320 mg PO DAILY 07/11/18 Zinc Oxide 0 gm TP BID 07/11/18 levETIRAcetam [Keppra Xr -] 750 mg PO BID 07/11/18 Review of Systems - Review of Systems Cardiovascular: reports: Chest Pain, Shortness of Breath Vital Signs: Vital Signs Temperature 97.8 F 07/11/18 09:45 Pulse Rate 75 07/11/18 09:45 Respiratory Rate 18 07/11/18 09:45 Blood Pressure 146/77 07/11/18 10:19 O2 Sat by Pulse Oximetry (%) 99 07/11/18 10:19 Constitutional: Yes: No Distress, Calm Neck: Yes: Supple Respiratory: Yes: Regular, Diminished, On Nasal O2 Gastrointestinal: Yes: Soft, Hypoactive Bowel Sounds Cardiovascular: Yes: Regular Rate and Rhythm JVD: No Carotid Bruit: No Heart Sounds: Yes: S1, S2 Murmur: Yes: Systolic Murmur, Grade 1 Edema: Yes Edema: LLE: Trace, RLE: Trace - Other Data Labs, Other Data: CBC, BMP 07/11/18 10:50 07/11/18 10:50 INR, PTT INR 1.36 (0.83-1.09) H 07/11/18 10:50 Troponin, BNP 07/11/18 10:50 Troponin I 0.09 H Troponin, BNP 07/11/18 10:50 Troponin I 0.09 H Ejection Fraction %: LVEF > or = 40 % Imaging - Results Chest X-ray: Report Reviewed (Left midlung ATX) Problem List - Problems (1) Chest pain Code(s): R07.9 - CHEST PAIN, UNSPECIFIED Qualifiers: Chest pain type: unspecified Qualified Code(s): R07.9 - Chest pain, unspecified (2) Hypertension Code(s): I10 - ESSENTIAL (PRIMARY) HYPERTENSION Qualifiers: Hypertension type: essential hypertension Qualified Code(s): I10 - Essential (primary) hypertension (3) DVT (deep venous thrombosis) Code(s): I82.409 - ACUTE EMBOLISM AND THOMBOS UNSP DEEP VN UNSP LOWER EXTREMITY (4) Demand ischemia Code(s): I24.8 - OTHER FORMS OF ACUTE ISCHEMIC HEART DISEASE (5) Hypercholesteremia Code(s): E78.0 - PURE HYPERCHOLESTEROLEMIA * DO NOT USE * (6) Hypothyroid Code(s): E03.9 - HYPOTHYROIDISM, UNSPECIFIED Qualifiers: Hypothyroidism type: unspecified Qualified Code(s): E03.9 - Hypothyroidism , unspecified (7) Seizure Code(s): R56.9 - UNSPECIFIED CONVULSIONS Assessment/Plan 05/02/2018 Normal LV size and fxn, grade II diastolic dysfunction c/w elevated atrial pressures, normal atrial sizes, small effusion 1. Chest pain and dyspnea referable to acute on chronic diastolic heart failure in context of 2. HTN, labile blood pressure 3. CAD angina pectoris with evidence of demand ischemia 4. PAF with [id number] score 5 on DOAC/Eliquis 5. DM 6. Hypercholesterolemia 7. History of CVA 8. Cerebral aneurysm post endo-clip 9. Hypothyroidism 10. Post right nephrectomy PLAN: 1. Continue Metoprolol ER 150 mg QD, Diovan 320 mg QD, Norvasc 10 mg QD and Hydralazine 50 mg TID 2. Trend trops to document peak, BNP, diuresis as needed 3. Continue Crestor 10 mg QHS and Eliquis 5 mg BID 4. Thank you for consultative opportunity
[2018-07-11] MEDS ORDERED: ASPIRIN 81 MG CHEWABLE TABLETS ONE (13:08)
[2018-07-11] MEDS ORDERED: amLODIPine BESYLATE 5 MG TABLET (FP) ONE (16:02)
[2018-07-11] MEDS ORDERED: VALSARTAN 80 MG TABLET (UD) ONE (16:02)
[2018-07-11] MEDS: amLODIPine BESYLATE 10 MG TABLET (FP) PO SCH (16:11)
[2018-07-11] MEDS: VALSARTAN 160 MG TABLET (UD) PO SCH (16:11)
--- NOTE | 2018-07-11 16:31 | HP ---
Admitting History and Physical - Primary Care Physician PCP: Roxana Ruiz - Admission Chief Complaint: came in for chest pain History of Present Illness: The patient is a 68-year-old gentleman history of A. fib, CVA hemiplegia, hypertension, hyperlipidemia, cerebral aneurysm status post clipping, CAD, CKD, diabetes, hypothyroidism sent from a [facility] for evaluation of high blood pressure and chest pain. The patient notes that he had approximate 30 minutes of right-sided chest pain radiating to the right shoulder associated with nausea and shortness of breath. The patient states his chest pain has since resolved. Per EMS the patient's blood pressure was noted to be in the 200s systolic he was given hydraliazine and his blood pressure since improved to the 140s systolic. in ER trop 0.09 History Source: Patient, Medical Record - Past Medical History [employer]: Yes: Other (cerebral aneurysm has two titanium clips) Cardiovascular: Yes: AFIB, Deep Vein Thrombosis, HTN, Hyperlipdemia Renal/: Yes: Renal Inusuff Musculoskeletal: Yes: Hemiparesis, Hemiplegia Endocrine: Yes: Diabetes Mellitus, Hypothyroidism - Past Surgical History Past Surgical History: Yes: Nephrectomy (right) - Smoking History Smoking history: Unknown if ever smoked Have you smoked in the past 12 months: No Aproximately how many cigarettes per day: 0 - Alcohol/Substance Use Hx Alcohol Use: No History of Substance Use: reports: None - Social History ADL: Support Services Occupation: Disabled, History of Recent Travel: No Home Medications - Allergies Allergies/Adverse Reactions: Allergies Allergy/AdvReac Type Severity Reaction Status Date / Time No Known Allergies Allergy Verified 07/11/18 11:03 - Home Medications Home Medications: Ambulatory Orders Aa/[place] Craig,[place]/Arg/C/Zn/Cu [Lps Critical Care Liquid] 30 ml PO DAILY Acetaminophen 650 mg PO Q6H 04/06/18 Amlodipine Besylate 10 mg PO DAILY 04/06/18 Apixaban [Eliquis -] 5 mg PO BID 04/06/18 Docusate Sodium [Colace -] 100 mg PO TID 04/06/18 Hydralazine HCl 25 mg PO QID 04/06/18 Levothyroxine [Synthroid -] 75 mcg PO DAILY 04/06/18 Metoprolol Succinate [Toprol XL -] 100 mg PO DAILY 04/06/18 Rosuvastatin [Crestor -] 10 mg PO HS 04/06/18 Sitagliptin Phosphate [Januvia] 50 mg PO DAILY 04/06/18 Tamsulosin HCl 0.8 mg PO DAILY 04/06/18 Donepezil HCl [Aricept -] 5 mg PO DAILY 07/11/18 Gabapentin [Neurontin -] 100 mg PO DAILY 07/11/18 Nitroglycerin Sublingual [Nitrostat -] 0.4 mg SL ONCE PRN 07/11/18 Valsartan 320 mg PO DAILY 07/11/18 Zinc Oxide 0 gm TP BID 07/11/18 levETIRAcetam [Keppra Xr -] 750 mg PO BID 07/11/18 Review of Systems - Review of Systems Neck: reports: No Symptoms Cardiovascular: reports: No Symptoms Respiratory: reports: No Symptoms Gastrointestinal: reports: No Symptoms Physical Examination Vital Signs: Vital Signs Temperature 97.8 F 07/11/18 09:45 Pulse Rate 65 07/11/18 14:25 Respiratory Rate 17 07/11/18 14:25 Blood Pressure 149/80 07/11/18 14:25 O2 Sat by Pulse Oximetry (%) 98 07/11/18 14:25 currently awake alert chest pain free no palpitatios no SOB Constitutional: Yes: Calm Cardiovascular: Yes: Regular Rate and Rhythm, S1, S2 Respiratory: Yes: CTA Bilaterally Gastrointestinal: Yes: Normal Bowel Sounds, Soft Edema: No Neurological: Yes: Pre-Existing Deficit (left sided weakness) Psychiatric: Yes: Alert, Oriented Labs: CBC, BMP 07/11/18 10:50 07/11/18 10:50 Imaging - Results Chest X-ray: Report Reviewed (no infltrates) Problem List - Problems (1) Chest pain Assessment/Plan: obeservation tele trend cardio consult noted Code(s): R07.9 - CHEST PAIN, UNSPECIFIED Qualifiers: Chest pain type: unspecified Qualified Code(s): R07.9 - Chest pain, unspecified (2) Hypertension Assessment/Plan: same meds Code(s): I10 - ESSENTIAL (PRIMARY) HYPERTENSION Qualifiers: Hypertension type: essential hypertension Qualified Code(s): I10 - Essential (primary) hypertension (3) Afib Assessment/Plan: toprol and eliquis Code(s): I48.91 - UNSPECIFIED ATRIAL FIBRILLATION Qualifiers: (4) BPH (benign prostatic hyperplasia) Assessment/Plan: flomax Code(s): N40.0 - BENIGN PROSTATIC HYPERPLASIA WITHOUT LOWER URINRY TRACT SYMP (5) Diabetes 1.5, managed as type 2 Assessment/Plan: bgm sliding sclae januvia Code(s): E13.9 - OTHER SPECIFIED DIABETES MELLITUS WITHOUT COMPLICATIONS (6) Hypothyroid Assessment/Plan: synthroid check tsh Code(s): E03.9 - HYPOTHYROIDISM, UNSPECIFIED Qualifiers: Hypothyroidism type: unspecified Qualified Code(s): E03.9 - Hypothyroidism , unspecified (7) Seizure Assessment/Plan: keppra bid Code(s): R56.9 - UNSPECIFIED CONVULSIONS
[2018-07-11] MEDS: INSULIN SLIDING SCALE (NOVOLOG) 1 VIAL SQ SCH ×2 (16:49→23:20)
[2018-07-11] MEDS: levETIRAcetam 250 MG TABLET (FP) PO SCH (23:21)
[2018-07-11] MEDS: hydrALAZINE HCL 25 MG TABLET (FP) PO SCH (23:21)
[2018-07-11] MEDS: ROSUVASTATIN CA 10 MG TABLET (FP) PO SCH (23:21)
[2018-07-11] MEDS: APIXABAN 5 MG TABLET PO SCH (23:21)
[2018-07-12] MEDS: hydrALAZINE HCL 25 MG TABLET (FP) PO SCH ×3 (05:45→23:30)
[2018-07-12] MEDS: sitaGLIPtin PHOSPHATE 50 MG TABLET PO SCH (06:06)
[2018-07-12] MEDS: LEVOTHYROXINE NA 75 MCG TABLET (FP) PO SCH (06:06)
[2018-07-12] MEDS: INSULIN SLIDING SCALE (NOVOLOG) 1 VIAL SQ SCH ×4 (06:12→23:29)
[2018-07-12 06:58] LABS: HEMATOCRIT 39.6 % (35.4-49); HEMOGLOBIN 12.5 GM/dL (11.7-16.9); MCH 22.2 pg (25.7-33.7); MCHC 31.5 g/dl (32.0-35.9); MEAN CELL VOLUME 70.4 fl (80-96); MEAN PLT VOLUME 8.3 fl (7.5-11.1); PLATELET COUNT 156 K/MM3 (134-434); RBC 5.63 M/mm3 (4.00-5.60); RDW 15.9 % (11.9-15.9); WHITE BLOOD COUNT 4.5 K/mm3 (4.0-10.0)
[2018-07-12 08:28] LABS: ALBUMIN 2.8 g/dl (3.4-5.0); BILIRUBIN,TOTAL 0.8 mg/dL (0.2-1); CALCIUM 8.1 mg/dL (8.5-10.1); CREATININE 1.2 mg/dL (0.55-1.3); MAGNESIUM 2.3 mg/dL (1.8-2.4); N-TERMINAL BNP 1510.1 pg/ml (5-125); PHOSPHOROUS 3.6 mg/dL (2.5-4.9); POTASSIUM 5.1 mmol/L (3.5-5.1); TOT PROT 7.8 g/dl (6.4-8.2)
[2018-07-12] MEDS: VALSARTAN 160 MG TABLET (UD) PO SCH ×2 (08:49→12:00)
[2018-07-12] MEDS: amLODIPine BESYLATE 10 MG TABLET (FP) PO SCH ×2 (08:49→12:00)
[2018-07-12] MEDS: TAMSULOSIN HCL 0.4 MG CAP PO SCH (08:50)
--- NOTE | 2018-07-12 08:54 | PN ---
Progress Note, Physician - Current Medication List Current Medications: Active Medications Amlodipine Besylate (Norvasc -) 10 mg PO DAILY [facility] Last Admin: 07/12/18 08:49 Dose: 10 mg Apixaban (Eliquis -) 5 mg PO BID [facility] Last Admin: 07/11/18 23:21 Dose: 5 mg Donepezil HCl (Aricept -) 5 mg PO DAILY [facility] Hydralazine HCl (Apresoline -) 50 mg PO TID [facility] Last Admin: 07/12/18 05:45 Dose: 50 mg Insulin Aspart (Novolog Vial Sliding Scale -) 1 vial SQ ACHS [facility]; Protocol Last Admin: 07/12/18 06:12 Dose: Not Given Levetiracetam (Keppra -) 750 mg PO BID [facility] Last Admin: 07/11/18 23:21 Dose: 750 mg Levothyroxine Sodium (Synthroid -) 75 mcg PO DAILY@0700 [facility] Last Admin: 07/12/18 06:06 Dose: 75 mcg Metoprolol Succinate (Toprol Xl -) 150 mg PO DAILY [facility] Last Admin: 07/12/18 08:48 Dose: 150 mg Rosuvastatin Calcium (Crestor -) 10 mg PO HS [facility] Last Admin: 07/11/18 23:21 Dose: 10 mg Sitagliptin Phosphate (Januvia -) 50 mg PO DAILY@0700 [facility] Last Admin: 07/12/18 06:06 Dose: 50 mg Tamsulosin HCl (Flomax -) 0.8 mg PO DAILY@0830 [facility] Valsartan (Diovan -) 320 mg PO DAILY [facility] Last Admin: 07/12/18 08:49 Dose: 320 mg - Objective Vital Signs: Vital Signs Temperature 97.8 F 07/12/18 00:57 Pulse Rate 56 L 07/12/18 06:00 Respiratory Rate 18 07/12/18 06:00 Blood Pressure 164/88 07/12/18 06:00 O2 Sat by Pulse Oximetry (%) 100 07/12/18 06:00 Labs: CBC, BMP 07/12/18 05:40 07/12/18 05:40 INR, PTT INR 1.36 (0.83-1.09) H 07/11/18 10:50 Assessment/Plan Problems (1) Chest pain Assessment/Plan: resolved trend CE cardio consult noted Code(s): R07.9 - CHEST PAIN, UNSPECIFIED Qualifiers: Chest pain type: unspecified Qualified Code(s): R07.9 - Chest pain, unspecified (2) Hypertension Assessment/Plan: Increase hydralazine Code(s): I10 - ESSENTIAL (PRIMARY) HYPERTENSION Qualifiers: Hypertension type: essential hypertension Qualified Code(s): I10 - Essential (primary) hypertension (3) Afib Assessment/Plan: toprol and eliquis Code(s): I48.91 - UNSPECIFIED ATRIAL FIBRILLATION Qualifiers: de(s): N40.0 - BENIGN PROSTATIC HYPERPLASIA WITHOUT LOWER URINRY TRACT SYMP (5) Diabetes 1.5, managed as type 2 Assessment/Plan: bgm sliding sclae januvia Code(s): E13.9 - OTHER SPECIFIED DIABETES MELLITUS WITHOUT COMPLICATIONS (6) Hypothyroid Assessment/Plan: synthroid check tsh Code(s): E03.9 - HYPOTHYROIDISM, UNSPECIFIED Qualifiers: Hypothyroidism type: unspecified Qualified Code(s): E03.9 - Hypothyroidism , unspecified (7) Seizure Assessment/Plan: keppra bid Code(s): R56.9 - UNSPECIFIED CONVULSIONS (8) Headches and Change in ms Assessment/Plan: Improved Ct of head Neuro
[2018-07-12] MEDS: levETIRAcetam 250 MG TABLET (FP) PO SCH ×2 (10:05→23:30)
[2018-07-12] MEDS: APIXABAN 5 MG TABLET PO SCH ×2 (10:06→23:30)
[2018-07-12] MEDS: DONEPEZIL HCL 5 MG TABLET (FP) PO SCH (10:06)
--- NOTE | 2018-07-12 11:00 | PN ---
Progress Note, Physician Chief Complaint: Events noted Feels better History of Present Illness: Patient was seen and examined. Awake and alert. Chart was reviewed Denies chest pain. SOB or palpitations - Current Medication List Current Medications: Active Medications Amlodipine Besylate (Norvasc -) 10 mg PO DAILY [facility] Last Admin: 07/12/18 08:49 Dose: 10 mg Apixaban (Eliquis -) 5 mg PO BID [facility] Last Admin: 07/12/18 10:06 Dose: 5 mg Donepezil HCl (Aricept -) 5 mg PO DAILY [facility] Last Admin: 07/12/18 10:06 Dose: 5 mg Hydralazine HCl (Apresoline -) 75 mg PO TID [facility] Insulin Aspart (Novolog Vial Sliding Scale -) 1 vial SQ ACHS [facility]; Protocol Last Admin: 07/12/18 06:12 Dose: Not Given Levetiracetam (Keppra -) 750 mg PO BID [facility] Last Admin: 07/12/18 10:05 Dose: 750 mg Levothyroxine Sodium (Synthroid -) 75 mcg PO DAILY@0700 [facility] Last Admin: 07/12/18 06:06 Dose: 75 mcg Metoprolol Succinate (Toprol Xl -) 150 mg PO DAILY [facility] Last Admin: 07/12/18 08:48 Dose: 150 mg Rosuvastatin Calcium (Crestor -) 10 mg PO HS [facility] Last Admin: 07/11/18 23:21 Dose: 10 mg Sitagliptin Phosphate (Januvia -) 50 mg PO DAILY@0700 [facility] Last Admin: 07/12/18 06:06 Dose: 50 mg Tamsulosin HCl (Flomax -) 0.8 mg PO DAILY@0830 [facility] Last Admin: 07/12/18 08:50 Dose: 0.8 mg Valsartan (Diovan -) 320 mg PO DAILY [facility] Last Admin: 07/12/18 08:49 Dose: 320 mg - Objective Vital Signs: Vital Signs Temperature 98.6 F 07/12/18 08:00 Pulse Rate 73 07/12/18 08:00 Respiratory Rate 18 07/12/18 08:00 Blood Pressure 169/100 07/12/18 08:00 O2 Sat by Pulse Oximetry (%) 100 07/12/18 06:00 Eyes: Yes: PERRL HENT: Yes: Atraumatic Neck: Yes: Supple Cardiovascular: Yes: Regular Rate and Rhythm, S1, S2 Respiratory: Yes: CTA Bilaterally Gastrointestinal: Yes: Normal Bowel Sounds, Soft. No: Tenderness Edema: Yes Additional Findings/Remarks: - Review of Systems Constitutional: reports: Weakness. denies: Chills, Fever Eyes: denies: Blurred Vision, Double Vision Cardiovascular: denies: Chest Pain, Palpitations, Shortness of Breath Respiratory: denies: Cough, Hemoptysis, Orthopnea, PND, SOB, SOB on Exertion Gastrointestinal: denies: Abdominal Pain, Constipation, Diarrhea, Melena, Nausea , Rectal Bleeding, Vomiting Genitourinary: denies: Dysuria, Hematuria Musculoskeletal: denies: Back Pain, Joint Pain Neurological: denies Headache. denies: Dizziness, Seizure, Syncope Labs: CBC, BMP 07/12/18 05:40 07/12/18 05:40 INR, PTT INR 1.36 (0.83-1.09) H 07/11/18 10:50 Problem List - Problems (1) Hypertension Code(s): I10 - ESSENTIAL (PRIMARY) HYPERTENSION Qualifiers: Hypertension type: essential hypertension Qualified Code(s): I10 - Essential (primary) hypertension (2) Afib Code(s): I48.91 - UNSPECIFIED ATRIAL FIBRILLATION Qualifiers: (3) CAD (coronary artery disease) Code(s): I25.10 - ATHSCL HEART DISEASE OF [place] CORONARY ARTERY W/O ANG PCTRS (4) Cerebral aneurysm Code(s): I67.1 - CEREBRAL ANEURYSM, NONRUPTURED (5) Cerebrovascular disease Code(s): I67.9 - CEREBROVASCULAR DISEASE, UNSPECIFIED (6) DVT (deep venous thrombosis) Code(s): I82.409 - ACUTE EMBOLISM AND THOMBOS UNSP DEEP VN UNSP LOWER EXTREMITY (7) Demand ischemia Code(s): I24.8 - OTHER FORMS OF ACUTE ISCHEMIC HEART DISEASE (8) Diabetes mellitus Code(s): E11.9 - TYPE 2 DIABETES MELLITUS WITHOUT COMPLICATIONS (9) Hypercholesteremia Code(s): E78.0 - PURE HYPERCHOLESTEROLEMIA * DO NOT USE * (10) Hypertension associated with stage 2 chronic kidney disease due to type 2 diabetes mellitus Code(s): E11.22 - TYPE 2 DIABETES MELLITUS W DIABETIC CHRONIC KIDNEY DISEASE; I12.9 - HYPERTENSIVE CHRONIC KIDNEY DISEASE W STG 1-4/UNSP CHR KDNY; N18.2 - CHRONIC KIDNEY DISEASE, STAGE 2 (MILD) (11) Hypothyroid Code(s): E03.9 - HYPOTHYROIDISM, UNSPECIFIED Qualifiers: Hypothyroidism type: unspecified Qualified Code(s): E03.9 - Hypothyroidism , unspecified Assessment/Plan 1. Chest pain and dyspnea referable to acute on chronic diastolic heart failure 2. HTN - labile 3. CAD angina pectoris with evidence of demand ischemia 4. PAF with [id number] score 5 on DOAC/Eliquis 5. DM 6. Hypercholesterolemia 7. History of CVA 8. Cerebral aneurysm post endo-clip 9. Hypothyroidism 10. Post right nephrectomy PLAN: 1. Continue Metoprolol ER 150 mg QD, Diovan 320 mg QD, Norvasc 10 mg QD and increase Hydralazine to 50 mg TID, 2. Trend trops to document peak 3. Continue Crestor 10 mg QHS and Eliquis 5 mg BID Monitor BP and titrate medication Viraj Rae MD
--- NOTE | 2018-07-12 11:17 | CONSULT ---
Consult - text type - Consultation Consultation Note: NEUROLOGY CONSULT APPRECIATED: This 68 yo RH man is well-known to me since R CVA due to R MCA- aneurysmal hemorrhage, s/p aneurysm clipping, complicated by seizure disorder. Last seen at [facility] 06/11/18 and started on donepezil 5 mg po qam. PNHX: HTN, DM, hypothyroidism, gout, ASHD, [place], PAF and DVT, s/p nephrectomy. Meds: amlodipine, abixaban, hydralazine 25 mg QID, levothyroxine, metoprolol, rosuvastatin, sitagliptan, tamsulosin, donepezil 5 mg, valsartan, keppra 750 BID. Admitted from [facility] due to chest discomfort radiating into the R shoulder, noted with systolic BP > 200. Given hydralazine, with BP now 140s and resolution of chest complaints. Still with chronic R leg pain with movement, as noted on previous hospitalization. Last venous duplex 04/[address] (reviewed): Mod atrophy with ex vacuo ventricular dilation. S/P R frontal-parietal craniotomy/craniectomy with encephalomalacia. EKG NSR with 1st degree AV block MCV 69.7; BNP 1510 INDY: Cor reg. No bruit. Neck supple. Contractures L elbow, L knee. R frontotemporal craniectomy. +/- Abhishek's on R. NEURO: Awake, alert, Ox "[facility]" May corrected to 2018. TRUMP. 03/13 recall @ 3 min +glabella, snout CNII-CNXII: EOM's full. Full quiñones. Min L facial. Sl reduced tongue CARLEEN's. Gag ok. Motor: No R drift. Spastic L hemiparesis. Brisk reflexes L > R. Coordination: No R FTN dystaxia. Sensation: Reduced vibration in toes. Impression: Hypertensive Urgency/Emergency - self resolved with lowering of BP Severe L and moderate R cerebral dysfunction s/p aneurysmal bleed and CVA (OMS) Seizure disorder Peripheral Neuropathy (c/w diabetes) Suggest: Cardiology consult. Maintain systolic BPs < 140. Check B12, TSH, RPR, Fe++, TIBC, Ferritin, UA, C & S Continue leveteracetam 750 mg po q12H Increase Donepezil to 10 mg PO q AM Bedside PT vs. contracture Thank you very much, Christoph Alvarado MD
[2018-07-12] MEDS: ROSUVASTATIN CA 10 MG TABLET (FP) PO SCH (23:30)
[2018-07-13] MEDS: sitaGLIPtin PHOSPHATE 50 MG TABLET PO SCH (06:58)
[2018-07-13] MEDS: INSULIN SLIDING SCALE (NOVOLOG) 1 VIAL SQ SCH ×4 (06:58→22:28)
[2018-07-13] MEDS: hydrALAZINE HCL 25 MG TABLET (FP) PO SCH ×3 (06:58→22:28)
[2018-07-13] MEDS: LEVOTHYROXINE NA 75 MCG TABLET (FP) PO SCH (06:58)
[2018-07-13 08:06] LABS: SERUM IRON SATURATION 22 % (15-55); TOTAL IRON BINDING CAPACITY 190 ug/dL (250-450); UIBC 148 ug/dL (111-343)
[2018-07-13] MEDS: TAMSULOSIN HCL 0.4 MG CAP PO SCH (10:03)
[2018-07-13] MEDS: amLODIPine BESYLATE 10 MG TABLET (FP) PO SCH (10:04)
[2018-07-13] MEDS: levETIRAcetam 250 MG TABLET (FP) PO SCH ×2 (10:04→22:28)
[2018-07-13] MEDS: VALSARTAN 160 MG TABLET (UD) PO SCH (10:04)
[2018-07-13] MEDS: DONEPEZIL HCL 5 MG TABLET (FP) PO SCH (10:04)
[2018-07-13] MEDS: APIXABAN 5 MG TABLET PO SCH ×2 (10:04→22:28)
--- NOTE | 2018-07-13 10:07 | EKG ---
Test Reason : Blood Pressure : / mmHG Vent. Rate : 061 BPM Atrial Rate : 061 BPM P-R Int : 246 ms QRS Dur : 106 ms QT Int : 472 ms P-R-T Axes : -18 -48 119 degrees QTc Int : 475 ms SINUS RHYTHM WITH 1ST DEGREE A-V BLOCK LEFT AXIS DEVIATION INCOMPLETE LEFT BUNDLE BRANCH BLOCK MODERATE VOLTAGE CRITERIA FOR LVH, MAY BE NORMAL VARIANT T WAVE ABNORMALITY, CONSIDER LATERAL ISCHEMIA ABNORMAL ECG WHEN COMPARED WITH ECG OF 11-JUL-2018 18:34, INCOMPLETE LEFT BUNDLE BRANCH BLOCK IS NOW PRESENT Confirmed by SAMEER JAVIER, JOSE ([id number]) on 07/13/2018 10:07:22 AM Referred By: Kane MALAGON Confirmed By:JOSE ESTRELLA MD
--- NOTE | 2018-07-13 10:35 | PN ---
Progress Note, Physician History of Present Illness: No further chest pain, BP control improved. - Current Medication List Current Medications: Active Medications Amlodipine Besylate (Norvasc -) 10 mg PO DAILY [facility] Last Admin: 07/13/18 10:04 Dose: 10 mg Apixaban (Eliquis -) 5 mg PO BID [facility] Last Admin: 07/13/18 10:04 Dose: 5 mg Donepezil HCl (Aricept -) 5 mg PO DAILY [facility] Last Admin: 07/13/18 10:04 Dose: 5 mg Hydralazine HCl (Apresoline -) 75 mg PO TID [facility] Last Admin: 07/13/18 06:58 Dose: 75 mg Insulin Aspart (Novolog Vial Sliding Scale -) 1 vial SQ ACHS [facility]; Protocol Last Admin: 07/13/18 06:58 Dose: Not Given Levetiracetam (Keppra -) 750 mg PO BID [facility] Last Admin: 07/13/18 10:04 Dose: 750 mg Levothyroxine Sodium (Synthroid -) 75 mcg PO DAILY@0700 [facility] Last Admin: 07/13/18 06:58 Dose: 75 mcg Metoprolol Succinate (Toprol Xl -) 150 mg PO DAILY [facility] Last Admin: 07/13/18 10:07 Dose: 150 mg Rosuvastatin Calcium (Crestor -) 10 mg PO HS [facility] Last Admin: 07/12/18 23:30 Dose: 10 mg Sitagliptin Phosphate (Januvia -) 50 mg PO DAILY@0700 [facility] Last Admin: 07/13/18 06:58 Dose: 50 mg Tamsulosin HCl (Flomax -) 0.8 mg PO DAILY@0830 [facility] Last Admin: 07/13/18 10:03 Dose: 0.8 mg Valsartan (Diovan -) 320 mg PO DAILY [facility] Last Admin: 07/13/18 10:04 Dose: 320 mg - Objective Vital Signs: Vital Signs Temperature 98.8 F 07/13/18 06:00 Pulse Rate 59 L 07/13/18 06:00 Respiratory Rate 18 07/13/18 06:00 Blood Pressure 134/75 07/13/18 06:00 O2 Sat by Pulse Oximetry (%) 100 07/13/18 06:00 Constitutional: Yes: No Distress, Calm Neck: Yes: Supple Cardiovascular: Yes: Regular Rate and Rhythm Respiratory: Yes: Regular, Diminished Gastrointestinal: Yes: Soft, Hypoactive Bowel Sounds Edema: No Labs: CBC, BMP 07/12/18 05:40 07/12/18 05:40 INR, PTT INR 1.36 (0.83-1.09) H 07/11/18 10:50 - ....Imaging EKG: Report Reviewed (NSR LVH Tele: 4 beat NSVT) Problem List - Problems (1) Chest pain Code(s): R07.9 - CHEST PAIN, UNSPECIFIED Qualifiers: Chest pain type: unspecified Qualified Code(s): R07.9 - Chest pain, unspecified (2) Hypertension Code(s): I10 - ESSENTIAL (PRIMARY) HYPERTENSION Qualifiers: Hypertension type: essential hypertension Qualified Code(s): I10 - Essential (primary) hypertension (3) DVT (deep venous thrombosis) Code(s): I82.409 - ACUTE EMBOLISM AND THOMBOS UNSP DEEP VN UNSP LOWER EXTREMITY (4) Demand ischemia Code(s): I24.8 - OTHER FORMS OF ACUTE ISCHEMIC HEART DISEASE (5) Hypercholesteremia Code(s): E78.0 - PURE HYPERCHOLESTEROLEMIA * DO NOT USE * (6) Hypothyroid Code(s): E03.9 - HYPOTHYROIDISM, UNSPECIFIED Qualifiers: Hypothyroidism type: unspecified Qualified Code(s): E03.9 - Hypothyroidism , unspecified (7) Seizure Code(s): R56.9 - UNSPECIFIED CONVULSIONS Assessment/Plan 05/02/2018 Normal LV size and fxn, grade II diastolic dysfunction c/w elevated atrial pressures, normal atrial sizes, small effusion 1. Resolved chest pain and dyspnea referable to acute on chronic diastolic heart failure in context of 2. HTN, labile blood pressure 3. CAD angina pectoris with evidence of demand ischemia 4. PAF with [id number] score 5 on DOAC/Eliquis 5. DM 6. Hypercholesterolemia 7. History of CVA 8. Cerebral aneurysm post endo-clip 9. Hypothyroidism 10. Post right nephrectomy PLAN: 1. Continue Metoprolol ER 150 mg QD, Diovan 320 mg QD, Norvasc 10 mg QD and Hydralazine 50 mg TID 2. Trops have peaked 3. Continue Crestor 10 mg QHS and Eliquis 5 mg BID 4. D/c planning to [place]
--- NOTE | 2018-07-13 11:27 | DS ---
Physical Examination Vital Signs: Vital Signs Temperature 98.8 F 07/13/18 10:00 Pulse Rate 60 07/13/18 10:00 Respiratory Rate 22 H 07/13/18 10:00 Blood Pressure 163/90 07/13/18 10:00 O2 Sat by Pulse Oximetry (%) 100 07/13/18 06:00 Findings/Remarks: EVENTS AND NOTES REVIEWED PATIENT IN BED COMFORTABLE Constitutional: Yes: No Distress Cardiovascular: Yes: Regular Rate and Rhythm Respiratory: Yes: Regular Gastrointestinal: Yes: Soft, Abdomen, Obese Renal/: Yes: Incontinence Musculoskeletal: Yes: Muscle Weakness Edema: Yes Edema: LLE: Trace, RLE: Trace Integumentary: Yes: Other Wound/Incision: Yes: Dressing Dry and Intact Neurological: Yes: Pre-Existing Deficit ...Motor Strength: LLE, RLE Labs: CBC, BMP 07/12/18 05:40 07/12/18 05:40 Discharge Summary Reason For Visit: CHEST PAIN Current Active Problems Chest pain (Acute) Hypertension (Acute) Other Procedures: CXR Hospital Course: LABS AND BP CONTROL , MONITORED ON CARDIOLOGY TELEMETRY, BLOOD PRESSURE RESPONDED AND WILL SEND BACK TO [facility] Condition: Stable - Instructions Diet, Activity, Other Instructions: F/U WITH LABS IN 2-3 DAYS Disposition: [facility]ACILITY - Home Medications Comprehensive Discharge Medication List: Ambulatory Orders Aa/[place]/Arg/C/Zn/Cu [Lps Critical Care Liquid] 30 ml PO DAILY Acetaminophen 650 mg PO Q6H 04/06/18 Amlodipine Besylate 10 mg PO DAILY 04/06/18 Apixaban [Eliquis -] 5 mg PO BID 04/06/18 Docusate Sodium [Colace -] 100 mg PO TID 04/06/18 Hydralazine HCl 25 mg PO QID 04/06/18 Levothyroxine [Synthroid -] 75 mcg PO DAILY 04/06/18 Metoprolol Succinate [Toprol XL -] 100 mg PO DAILY 04/06/18 Rosuvastatin [Crestor -] 10 mg PO HS 04/06/18 Sitagliptin Phosphate [Januvia] 50 mg PO DAILY 04/06/18 Tamsulosin HCl 0.8 mg PO DAILY 04/06/18 Donepezil HCl [Aricept -] 5 mg PO DAILY 07/11/18 Gabapentin [Neurontin -] 100 mg PO DAILY 07/11/18 Nitroglycerin Sublingual [Nitrostat -] 0.4 mg SL ONCE PRN 07/11/18 Valsartan 320 mg PO DAILY 07/11/18 Zinc Oxide 0 gm TP BID 07/11/18 levETIRAcetam [Keppra Xr -] 750 mg PO BID 07/11/18 Amlodipine Besylate [Norvasc -] 10 mg PO DAILY tablet 07/13/18 Apixaban [Eliquis -] 5 mg PO BID tablet 07/13/18 Donepezil HCl [Aricept -] 5 mg PO DAILY tablet 07/13/18 Insulin Sliding Scale [Novolog Vial Sliding Scale -] 1 vial SQ ACHS units 07/13 Levothyroxine [Synthroid -] 75 mcg PO DAILY@0700 tablet 07/13/18 Metoprolol Succinate [Toprol XL -] 150 mg PO DAILY tab.sr.24h 07/13/18 Rosuvastatin [Crestor -] 10 mg PO HS tablet 07/13/18 Sitagliptin Phosphate [Januvia -] 50 mg PO DAILY@0700 tablet 07/13/18 Tamsulosin HCl [Flomax -] 0.8 mg PO DAILY@0830 cap.er.24h 07/13/18 Valsartan [Diovan] 320 mg PO DAILY tablet 07/13/18 hydrALAZINE HCL [Apresoline -] 75 mg PO TID tablet 07/13/18 levETIRAcetam [Keppra -] 750 mg PO BID tablet 07/13/18
--- NOTE | 2018-07-13 15:44 | EKG ---
Test Reason : Blood Pressure : / mmHG Vent. Rate : 077 BPM Atrial Rate : 077 BPM P-R Int : 256 ms QRS Dur : 102 ms QT Int : 422 ms P-R-T Axes : 000 -30 150 degrees QTc Int : 477 ms SINUS RHYTHM WITH 1ST DEGREE A-V BLOCK LEFT AXIS DEVIATION LEFT VENTRICULAR HYPERTROPHY WITH REPOLARIZATION ABNORMALITY CANNOT RULE OUT SEPTAL INFARCT (CITED ON OR BEFORE 30-APR-2018) ABNORMAL ECG WHEN COMPARED WITH ECG OF 11-JUL-2018 10:12, T WAVE INVERSION LESS EVIDENT IN LATERAL LEADS Confirmed by SAMEER JAVIER, JOSE ([id number]) on 07/13/2018 3:44:19 PM Referred By: Confirmed By:JOSE ESTRELLA MD
[2018-07-13] MEDS: ROSUVASTATIN CA 10 MG TABLET (FP) PO SCH (22:28)
[2018-07-14] MEDS: LEVOTHYROXINE NA 75 MCG TABLET (FP) PO SCH (06:49)
[2018-07-14] MEDS: sitaGLIPtin PHOSPHATE 50 MG TABLET PO SCH (06:49)
[2018-07-14] MEDS: hydrALAZINE HCL 25 MG TABLET (FP) PO SCH ×3 (06:49→21:58)
[2018-07-14] MEDS: INSULIN SLIDING SCALE (NOVOLOG) 1 VIAL SQ SCH ×4 (06:49→21:57)
--- NOTE | 2018-07-14 09:54 | PN ---
Progress Note, Physician History of Present Illness: No further chest pain, BP control improved. - Current Medication List Current Medications: Active Medications Amlodipine Besylate (Norvasc -) 10 mg PO DAILY [facility] Last Admin: 07/13/18 10:04 Dose: 10 mg Apixaban (Eliquis -) 5 mg PO BID [facility] Last Admin: 07/13/18 22:28 Dose: 5 mg Donepezil HCl (Aricept -) 5 mg PO DAILY [facility] Last Admin: 07/13/18 10:04 Dose: 5 mg Hydralazine HCl (Apresoline -) 75 mg PO TID [facility] Last Admin: 07/14/18 06:49 Dose: 75 mg Insulin Aspart (Novolog Vial Sliding Scale -) 1 vial SQ ACHS [facility]; Protocol Last Admin: 07/14/18 06:49 Dose: Not Given Levetiracetam (Keppra -) 750 mg PO BID [facility] Last Admin: 07/13/18 22:28 Dose: 750 mg Levothyroxine Sodium (Synthroid -) 75 mcg PO DAILY@0700 [facility] Last Admin: 07/14/18 06:49 Dose: 75 mcg Metoprolol Succinate (Toprol Xl -) 150 mg PO DAILY [facility] Last Admin: 07/13/18 10:07 Dose: 150 mg Rosuvastatin Calcium (Crestor -) 10 mg PO HS [facility] Last Admin: 07/13/18 22:28 Dose: 10 mg Sitagliptin Phosphate (Januvia -) 50 mg PO DAILY@0700 [facility] Last Admin: 07/14/18 06:49 Dose: 50 mg Tamsulosin HCl (Flomax -) 0.8 mg PO DAILY@0830 [facility] Last Admin: 07/13/18 10:03 Dose: 0.8 mg Valsartan (Diovan -) 320 mg PO DAILY [facility] Last Admin: 07/13/18 10:04 Dose: 320 mg - Objective Vital Signs: Vital Signs Temperature 97.8 F 07/14/18 09:00 Pulse Rate 59 L 07/14/18 09:00 Respiratory Rate 20 07/14/18 09:00 Blood Pressure 139/88 07/14/18 09:00 O2 Sat by Pulse Oximetry (%) 100 07/14/18 05:54 Constitutional: Yes: No Distress, Calm Neck: Yes: Supple Cardiovascular: Yes: Regular Rate and Rhythm Respiratory: Yes: Regular, Diminished Gastrointestinal: Yes: Normal Bowel Sounds, Soft Edema: No Labs: CBC, BMP 07/12/18 05:40 07/12/18 05:40 INR, PTT INR 1.36 (0.83-1.09) H 07/11/18 10:50 - ....Imaging EKG: Report Reviewed (Tele: SB) Problem List - Problems (1) Chest pain Code(s): R07.9 - CHEST PAIN, UNSPECIFIED Qualifiers: Chest pain type: unspecified Qualified Code(s): R07.9 - Chest pain, unspecified (2) Hypertension Code(s): I10 - ESSENTIAL (PRIMARY) HYPERTENSION Qualifiers: Hypertension type: essential hypertension Qualified Code(s): I10 - Essential (primary) hypertension (3) DVT (deep venous thrombosis) Code(s): I82.409 - ACUTE EMBOLISM AND THOMBOS UNSP DEEP VN UNSP LOWER EXTREMITY (4) Demand ischemia Code(s): I24.8 - OTHER FORMS OF ACUTE ISCHEMIC HEART DISEASE (5) Hypercholesteremia Code(s): E78.0 - PURE HYPERCHOLESTEROLEMIA * DO NOT USE * (6) Hypothyroid Code(s): E03.9 - HYPOTHYROIDISM, UNSPECIFIED Qualifiers: Hypothyroidism type: unspecified Qualified Code(s): E03.9 - Hypothyroidism , unspecified (7) Seizure Code(s): R56.9 - UNSPECIFIED CONVULSIONS Assessment/Plan 05/02/2018 Normal LV size and fxn, grade II diastolic dysfunction c/w elevated atrial pressures, normal atrial sizes, small effusion 1. Resolved chest pain and dyspnea referable to acute on chronic diastolic heart failure in context of 2. HTN, labile blood pressure 3. CAD angina pectoris with evidence of demand ischemia 4. PAF with [id number] score 5 on DOAC/Eliquis 5. DM 6. Hypercholesterolemia 7. History of CVA 8. Cerebral aneurysm post endo-clip 9. Hypothyroidism 10. Post right nephrectomy PLAN: 1. Continue Metoprolol ER 150 mg QD, Diovan 320 mg QD, Norvasc 10 mg QD and Hydralazine 75 mg TID 2. Trops have peaked 3. Continue Crestor 10 mg QHS and Eliquis 5 mg BID 4. D/c planning to [place]
[2018-07-14] MEDS: TAMSULOSIN HCL 0.4 MG CAP PO SCH (10:25)
[2018-07-14] MEDS: DONEPEZIL HCL 5 MG TABLET (FP) PO SCH (10:26)
[2018-07-14] MEDS: VALSARTAN 160 MG TABLET (UD) PO SCH (10:26)
[2018-07-14] MEDS: amLODIPine BESYLATE 10 MG TABLET (FP) PO SCH (10:26)
[2018-07-14] MEDS: levETIRAcetam 250 MG TABLET (FP) PO SCH ×2 (10:27→21:58)
[2018-07-14] MEDS: APIXABAN 5 MG TABLET PO SCH ×2 (10:27→21:58)
--- NOTE | 2018-07-14 11:54 | PN ---
Progress Note (short form) - Note Progress Note: IN BED ASLEEP NO ACUTE CHANGES OVERNIGHT AWAITING PLACEMENT AND AUTHORIZATION FROM INSURANCE
[2018-07-14] MEDS ORDERED: ACETAMINOPHEN 325 MG TABLET (FP) ONE (13:06)
[2018-07-14] MEDS ORDERED: ACETAMINOPHEN 325 MG TABLET (FP) PO ONE ×2 (13:45→22:20)
[2018-07-14] MEDS: ROSUVASTATIN CA 10 MG TABLET (FP) PO SCH (21:58)
[2018-07-15] MEDS: sitaGLIPtin PHOSPHATE 50 MG TABLET PO SCH (06:24)
[2018-07-15] MEDS: hydrALAZINE HCL 25 MG TABLET (FP) PO SCH ×2 (06:24→13:36)
[2018-07-15] MEDS: LEVOTHYROXINE NA 75 MCG TABLET (FP) PO SCH (06:24)
[2018-07-15] MEDS: INSULIN SLIDING SCALE (NOVOLOG) 1 VIAL SQ SCH ×2 (06:25→11:26)
[2018-07-15] MEDS: TAMSULOSIN HCL 0.4 MG CAP PO SCH (09:49)
[2018-07-15] MEDS: VALSARTAN 160 MG TABLET (UD) PO SCH (09:50)
[2018-07-15] MEDS: amLODIPine BESYLATE 10 MG TABLET (FP) PO SCH (09:50)
[2018-07-15] MEDS: levETIRAcetam 250 MG TABLET (FP) PO SCH (09:50)
[2018-07-15] MEDS: APIXABAN 5 MG TABLET PO SCH (09:50)
[2018-07-15] MEDS ORDERED: DONEPEZIL HCL 10 MG TABLET (FP) PO SCH (10:00)
--- NOTE | 2018-07-15 10:45 | PN ---
Progress Note, Physician History of Present Illness: No further chest pain, BP control improved. - Current Medication List Current Medications: Active Medications Amlodipine Besylate (Norvasc -) 10 mg PO DAILY [facility] Last Admin: 07/15/18 09:50 Dose: 10 mg Apixaban (Eliquis -) 5 mg PO BID [facility] Last Admin: 07/15/18 09:50 Dose: 5 mg Donepezil HCl (Aricept -) 10 mg PO DAILY [facility] Last Admin: 07/15/18 09:52 Dose: 10 mg Hydralazine HCl (Apresoline -) 75 mg PO TID [facility] Last Admin: 07/15/18 06:24 Dose: 75 mg Insulin Aspart (Novolog Vial Sliding Scale -) 1 vial SQ ACHS [facility]; Protocol Last Admin: 07/15/18 06:25 Dose: Not Given Levetiracetam (Keppra -) 750 mg PO BID [facility] Last Admin: 07/15/18 09:50 Dose: 750 mg Levothyroxine Sodium (Synthroid -) 75 mcg PO DAILY@0700 [facility] Last Admin: 07/15/18 06:24 Dose: 75 mcg Metoprolol Succinate (Toprol Xl -) 150 mg PO DAILY [facility] Last Admin: 07/15/18 09:49 Dose: 150 mg Rosuvastatin Calcium (Crestor -) 10 mg PO HS [facility] Last Admin: 07/14/18 21:58 Dose: 10 mg Sitagliptin Phosphate (Januvia -) 50 mg PO DAILY@0700 [facility] Last Admin: 07/15/18 06:24 Dose: 50 mg Tamsulosin HCl (Flomax -) 0.8 mg PO DAILY@0830 [facility] Last Admin: 07/15/18 09:49 Dose: 0.8 mg Valsartan (Diovan -) 320 mg PO DAILY [facility] Last Admin: 07/15/18 09:50 Dose: 320 mg - Objective Vital Signs: Vital Signs Temperature 98.6 F 07/15/18 01:00 Pulse Rate 57 L 07/15/18 05:00 Respiratory Rate 20 07/15/18 05:00 Blood Pressure 156/89 07/15/18 05:00 O2 Sat by Pulse Oximetry (%) 100 07/14/18 21:07 Constitutional: Yes: No Distress, Calm Neck: Yes: Supple Cardiovascular: Yes: Regular Rate and Rhythm Respiratory: Yes: Regular, CTA Bilaterally Gastrointestinal: Yes: Soft, Hypoactive Bowel Sounds Edema: No Labs: CBC, BMP 07/12/18 05:40 07/12/18 05:40 INR, PTT INR 1.36 (0.83-1.09) H 07/11/18 10:50 Problem List - Problems (1) Chest pain Code(s): R07.9 - CHEST PAIN, UNSPECIFIED Qualifiers: Chest pain type: unspecified Qualified Code(s): R07.9 - Chest pain, unspecified (2) Hypertension Code(s): I10 - ESSENTIAL (PRIMARY) HYPERTENSION Qualifiers: Hypertension type: essential hypertension Qualified Code(s): I10 - Essential (primary) hypertension (3) DVT (deep venous thrombosis) Code(s): I82.409 - ACUTE EMBOLISM AND THOMBOS UNSP DEEP VN UNSP LOWER EXTREMITY (4) Demand ischemia Code(s): I24.8 - OTHER FORMS OF ACUTE ISCHEMIC HEART DISEASE (5) Hypercholesteremia Code(s): E78.0 - PURE HYPERCHOLESTEROLEMIA * DO NOT USE * (6) Hypothyroid Code(s): E03.9 - HYPOTHYROIDISM, UNSPECIFIED Qualifiers: Hypothyroidism type: unspecified Qualified Code(s): E03.9 - Hypothyroidism , unspecified (7) Seizure Code(s): R56.9 - UNSPECIFIED CONVULSIONS Assessment/Plan 05/02/2018 Normal LV size and fxn, grade II diastolic dysfunction c/w elevated atrial pressures, normal atrial sizes, small effusion 1. Resolved chest pain and dyspnea referable to acute on chronic diastolic heart failure in context of 2. HTN, labile blood pressure 3. CAD angina pectoris with evidence of demand ischemia 4. PAF with [id number] score 5 on DOAC/Eliquis 5. DM 6. Hypercholesterolemia 7. History of CVA 8. Cerebral aneurysm post endo-clip 9. Hypothyroidism 10. Post right nephrectomy PLAN: 1. Continue Metoprolol ER 150 mg QD, Diovan 320 mg QD, Norvasc 10 mg QD and Hydralazine 75 mg TID 2. Trops downtrending 3. Continue Crestor 10 mg QHS and Eliquis 5 mg BID 4. D/c planning to [place]
--- NOTE | 2018-07-15 10:51 | PN ---
Progress Note (short form) - Note Progress Note: NEUROLOGY PROGRESS: Pt seen prior to discharge back to [facility]. at bedside. No further complaints of chest pains with BPs under better control 140s-150s/70- 80s. P 60s. Now on donepezil 10 mg po qam. A1c 6.6 Q50=733 TSH 3.49 Iron 42 TIBc 190 Iron Sat 22% NEURO: Awake, alert, Ox "[facility]" 2019. TRUMP. 2/3 recall @ 3 min +glabella, snout Exam otherwise unchanged. Impression: Severe L and moderate R cerebral dysfunction s/p aneurysmal bleed and CVA (OMS) Seizure disorder Peripheral Neuropathy (c/w diabetes) Suggest: Continue leveteracetam 750 mg po q12H Continue Donepezil 10 mg PO q AM BP monitoring while at nursing facility Thank you very much, Christoph Alvarado MD
[2018-07-15 11:50] VITALS: PULSE 58
[2018-07-15 15:49] VITALS: BP 144/85; TEMP 98.5
--- NOTE | 2018-07-15 17:04 | PN ---
Progress Note (short form) - Note Progress Note: Patient being discharge back to SNF today. Patient is alert and awake on exam, NAD. No complaints of chest pain or SOB.
[2018-07-16 10:45] VITALS: BMI 28.8
== END 2018-07-15 16:58 ==
LOC: JER 09:36 → JERBED 12:31 → J4W 20:54
PROVIDERS: ADMIT Family Medicine; ATTEND Family Medicine
DX: R07.9 Chest pain, unspecified (principal); I12.9 Hypertensive chronic kidney disease with stage 1 through stage 4 chronic kidney disease, or unspecified chronic kidney disease; I16.0 Hypertensive urgency; E11.22 Type 2 diabetes mellitus with diabetic chronic kidney disease; E11.42 Type 2 diabetes mellitus with diabetic polyneuropathy; N18.2 Chronic kidney disease, stage 2 (mild); I48.0 Paroxysmal atrial fibrillation; E78.5 Hyperlipidemia, unspecified; I69.351 Hemiplegia and hemiparesis following cerebral infarction affecting right dominant side; I25.10 Atherosclerotic heart disease of native coronary artery without angina pectoris; I25.2 Old myocardial infarction; I24.8 Other forms of acute ischemic heart disease; G40.909 Epilepsy, unspecified, not intractable, without status epilepticus; N40.0 Benign prostatic hyperplasia without lower urinary tract symptoms; R51 Headache; I67.9 Cerebrovascular disease, unspecified; Z86.79 Personal history of other diseases of the circulatory system; Z86.718 Personal history of other venous thrombosis and embolism; Z90.5 Acquired absence of kidney; Z79.01 Long term (current) use of anticoagulants; Z79.4 Long term (current) use of insulin
CPT/HCPCS: 36415; 70450-TC; 71045-TC-FY; 80053; 82550; 82553; 82607; 82962; 83036; 83540; 83550; 83735; 83880; 84100; 84443; 84484; 85025; 85027; 85610; 93005; 93010; 97161-GP; 99284-25; G0378

== ENCOUNTER 2018-11-30 11:38 | Inpatient (IN) | payer BC, OTHER ==
[2018-11-30] MEDS ORDERED: SODIUM CHLORIDE 1,000 ML IV STA ×2 (12:16→13:26)
[2018-11-30] MEDS ORDERED: ACETAMINOPHEN 1000 MG/100 ML VIAL (NON FORMULARY) IVPB ONE (12:16)
[2018-11-30 12:20] LABS: BASO % 0.3 % (0-2.0); EOS % 0.8 % (0-4.5); HEMATOCRIT 39.9 % (35.4-49); HEMOGLOBIN 12.5 GM/dL (11.7-16.9); LYMPH % 6.2 % (8-40); MCH 22.1 pg (25.7-33.7); MCHC 31.2 g/dl (32.0-35.9); MEAN CELL VOLUME 70.8 fl (80-96); MEAN PLT VOLUME 8.6 fl (7.5-11.1); MONO % 3.4 % (3.8-10.2); NEUT % 89.3 % (42.8-82.8); PLATELET COUNT 159 K/MM3 (134-434); RBC 5.64 M/mm3 (4.00-5.60); WHITE BLOOD COUNT 9.9 K/mm3 (4.0-10.0)
[2018-11-30 12:37] LABS: INR 1.28 (0.83-1.09); PROTHROMBIN TIME (PATIENT) 15.1 SEC (9.7-13.0)
[2018-11-30 12:40] LABS: EPI CELLS 2.2 /HPF (0-5/HPF); HYALINE CASTS 8 /lpf (0-8); URINE APPEARANCE CLEAR; URINE BACTERIA 2.2 /hpf (NEGATIVE); URINE BILIRUBIN NEGATIVE (NEGATIVE); URINE COLOR YELLOW; URINE GLUCOSE (UA) NEGATIVE (NEGATIVE); URINE KETONE TRACE (NEGATIVE); URINE LEUK ESTERASE NEGATIVE (NEGATIVE); URINE NITRITE NEGATIVE (NEGATIVE); URINE PROTEIN 2+ (NEGATIVE); URINE UROBILINOGEN 0.2 mg/dL (0.2-1.0); URINE WBC 1 /hpf (0-5)
[2018-11-30 12:40] LABS: ACTIVATED PTT 28.6 SECONDS (25.2-36.5)
[2018-11-30] MEDS ORDERED: ACETAMINOPHEN INJECTION 100 ML IVPB ONE (12:43)
[2018-11-30 13:01] LABS: ALBUMIN 3.2 g/dl (3.4-5.0); ALK PHOS 104 U/L (45-117); ANION GAP 9 MMOL/L (8-16); BILIRUBIN,TOTAL 0.6 mg/dL (0.2-1); BLOOD UREA NITROGEN 28.6 mg/dL (7-18); CALCIUM 8.4 mg/dL (8.5-10.1); CHLORIDE 104 mmol/L (98-107); CO2 30 mmol/L (21-32); CREATININE 1.6 mg/dL (0.55-1.3); GLUCOSE,RANDOM 232 mg/dL (74-106); POTASSIUM 3.8 mmol/L (3.5-5.1); SGOT/AST 26 U/L (15-37); SGPT/ALT 32 U/L (13-61); SODIUM 142 mmol/L (136-145); TOT PROT 7.8 g/dl (6.4-8.2)
[2018-11-30] MEDS ORDERED: VANCOMYCIN 1,000 MG in DEXTROSE 5%-WATER - 250 ML IVPB ONE (13:03)
[2018-11-30] MEDS ORDERED: PIPERACILLIN/TAZOB 4.5 GM 4.5 GM in DEXTROSE 5%-WATER 100 ML IVPB ONE (13:03)
[2018-11-30] MEDS ORDERED: PIPERACILLIN/TAZOB 4.5 GM 4.5 GM/100 ML BAG IVPB ONE (13:28)
[2018-11-30] MEDS ORDERED: VANCOMYCIN 1 GRAM (PRE-DOCKED) 1,000 MG/250 ML BAG IVPB ONE (13:28)
--- NOTE | 2018-11-30 13:31 | PDOC ---
Documentation entered by Sparkle Andrade SCRIBE, acting as scribe for Norma Perez MD. Norma Perez MD: This documentation has been prepared by the Raymond da silva Adrianna, SCRIBE, under my direction and personally reviewed by me in its entirety. I confirm that the documentation accurately reflects all work, treatment, procedures, and medical decision making performed by me. History of Present Illness - General Chief Complaint: SIRS, Suspected/Possible Stated Complaint: SHORTNESS OF BREATH Time Seen by Provider: 11/30/18 12:15 - History of Present Illness Initial Comments: The patient is a 69 year old male, with a significant PMH of Afib, CVA 2012 ( with residual L sided weakness), HTN, HLD, CAD (s/p SC), CKD, DM, anemia, and thyroid disease presents to the ED BIBEMS for evaluation of cough and fever since this morning. Caregiver at bedside provides history. She notes that the patient became shaky this morning after taking his daily medications. Caregiver notes he became stiff and cold, and his took his BP which was 170s systolic. Patient has a rattling cough and complains of RLQ abdominal pain. He denies any SOB or ZULETA. Patient was found to have a fever of 103 while in the ED. Allergies: NKA, NKDA Surgical History: Aneursym clipping, right knee orthpedic surgery Social History: Denies EtOH, tobacco, or illicit drug use PCP: Dr. Ruiz Past History - Past Medical History Allergies/Adverse Reactions: Allergies Allergy/AdvReac Type Severity Reaction Status Date / Time No Known Allergies Allergy Verified 07/11/18 11:03 Home Medications: Ambulatory Orders Aa/[place]/Arg/C/Zn/Cu [Lps Critical Care Liquid] 30 ml PO DAILY Acetaminophen 650 mg PO Q6H PRN 04/06/18 Amlodipine Besylate 10 mg PO DAILY 04/06/18 Apixaban [Eliquis -] 5 mg PO BID 04/06/18 Docusate Sodium [Colace -] 100 mg PO TID 04/06/18 Hydralazine HCl 25 mg PO QID 04/06/18 Levothyroxine [Synthroid -] 75 mcg PO DAILY 04/06/18 Tamsulosin HCl 0.8 mg PO DAILY 04/06/18 Donepezil HCl [Aricept -] 10 mg PO DAILY 07/11/18 Gabapentin [Neurontin -] 100 mg PO DAILY 07/11/18 Nitroglycerin Sublingual [Nitrostat -] 0.4 mg SL ONCE PRN 07/11/18 levETIRAcetam [Levetiracetam -] 750 mg PO BID 07/11/18 Rosuvastatin [Crestor -] 10 mg PO HS tablet 07/13/18 Sitagliptin Phosphate [Januvia -] 50 mg PO DAILY@0700 tablet 07/13/18 Valsartan [Diovan] 320 mg PO DAILY tablet 07/13/18 Ascorbic Acid [Vitamin C] 500 mg PO DAILY 11/30/18 Dextran 70/Hypromellose [Artificial Tears] 1 each OP DAILY 11/30/18 Insulin Sliding Scale [Novolog Vial Sliding Scale -] See Protocol SQ ACHS Levocetirizine Dihydrochloride 5 mg PO DAILY 11/30/18 Multivitamins [Multivit ([facility] Formul[facility])] 1 tab PO DAILY 11/30/18 Azithromycin [Zithromax] 500 mg PO DAILY #3 tablet 12/02/18 Cefuroxime Axetil [Ceftin -] 500 mg PO Q12H #20 tablet 12/02/18 Metoprolol Succinate [Toprol XL -] 150 mg PO DAILY #30 tab.sr.24h 12/02/18 Anemia: Yes Asthma: No Cancer: No Cardiac Disorders: Yes (atrial fib, SC) CVA: Yes (Right basal ganglia bleed (10/2015)) COPD: No CHF: No Dementia: No Diabetes: Yes GI Disorders: No Disorders: No HTN: Yes Hypercholesterolemia: Yes Liver Disease: No Seizures: Yes Thyroid Disease: Yes (hypo) - Surgical History Abdominal Surgery: No Appendectomy: No Cardiac Surgery: No Cholecystectomy: No Lung Surgery: No Neurologic Surgery: Yes (ANEURSYM) Orthopedic Surgery: Yes (right knee) - Immunization History Immunization Up to Date: Yes - Psycho Social/Smoking Cessation Hx Smoking Status: No Smoking History: Unknown if ever smoked Have you smoked in the past 12 months: No Number of Cigarettes Smoked Daily: 0 Information on smoking cessation initiated: No Hx Alcohol Use: No Drug/Substance Use Hx: No Substance Use Type: None Hx Substance Use Treatment: No Review of Systems - Review of Systems Comments:: GENERAL/CONSTITUTIONAL: +Fever of 103. +Cold. +Hypertensive. +Shaky. +Stiff. No weakness. HEAD, EYES, EARS, NOSE AND THROAT: No change in vision. No ear pain or discharge. No sore throat. CARDIOVASCULAR: No chest pain or shortness of breath. RESPIRATORY: +Cough. No wheezing or hemoptysis. GASTROINTESTINAL: +RLQ abdominal pain. No nausea, vomiting, diarrhea or constipation. GENITOURINARY: No dysuria, frequency, or change in urination. MUSCULOSKELETAL: No joint or muscle swelling or pain. No neck or back pain. SKIN: No rash NEUROLOGIC: No headache, vertigo, loss of consciousness, or change in strength/ sensation. ENDOCRINE: No increased thirst. No abnormal weight change. HEMATOLOGIC/LYMPHATIC: No anemia, easy bleeding, or history of blood clots. ALLERGIC/IMMUNOLOGIC: No hives or skin allergy. *Physical Exam - Vital Signs Last Vital Signs Temp Pulse Resp BP Pulse Ox 103 F H 104 H 18 141/71 96 11/30/18 11:52 11/30/18 11:52 11/30/18 11:52 11/30/18 11:52 11/30/18 11:52 - Physical Exam Comments: GENERAL: The patient is in no acute distress. Yes or no responses to questions. HEAD: Normal with no signs of trauma. EYES: PERRLA, EOMI, sclera anicteric, conjunctiva clear. ENT: Ears normal, nares patent, oropharynx clear without exudates. Moist mucous membranes. NECK: Normal range of motion, supple without lymphadenopathy, JVD, or masses. LUNGS: Limited HEART:Regular rate and rhythm, normal S1 and S2 without murmur, rub or gallop. ABDOMEN: +RLQ tenderness to palpation. Soft, normoactive bowel sounds. No guarding, no rebound. No masses palpable. EXTREMITIES: Normal range of motion, no edema. No clubbing or cyanosis. No erythema, or tenderness. NEUROLOGICAL: +left sided hemiparesis. Cranial nerves II through XII grossly intact. MUSCULOSKELETAL: Back non-tender to palpation, no CVA tenderness SKIN: Warm, Dry, normal turgor, no rashes or lesions noted. No obvious wound or abcsess ED Treatment Course - LABORATORY CBC & Chemistry Diagram: 12/02/18 07:20 12/02/18 07:20 - ADDITIONAL ORDERS Additional order review: Laboratory Results 11/30/18 11/30/18 11/30/18 12:15 12:15 12:07 PT with INR Cancelled 15.10 H INR Cancelled 1.28 H PTT (Actin FS) 28.6 Urine Color Yellow Urine Appearance Clear Urine pH 5.0 D Ur Specific [place] 1.022 Urine Protein 2+ H Urine Glucose (UA) Negative Urine Ketones Trace H Urine Blood Negative Urine Nitrite Negative Urine Bilirubin Negative Urine Urobilinogen 0.2 Ur Leukocyte Esterase Negative Urine WBC (Auto) 1 Urine Casts (Auto) 8 U Epithel Cells (Auto) 2.2 Urine Bacteria (Auto) 2.2 11/30/18 12:15 RBC 5.64 H MCV 70.8 L MCHC 31.2 L RDW 17.0 H MPV 8.6 Neutrophils % 89.3 H D Lymphocytes % 6.2 L D Monocytes % 3.4 L Eosinophils % 0.8 D Basophils % 0.3 - RADIOLOGY Radiology Studies Ordered: Category Date Time Status CHEST X-RAY PORTABLE* [RAD] Stat Radiology 11/30/18 12:05 Taken Radiograph Interpretation: EXAM#: TYPE/EXAM: RESULT: [id number] RAD/CHEST X-RAY PORTABLE* Chest single view portable Indication: Cough. Impression: Cardiomegaly unchanged from prior imaging. No no new infiltrates are identified. Reported By: Randal Hernandez MD 11/30/18 12:56 - Medications Given in the ED: ED Medications Discontinued Medications Generic Name Dose Route Start Last Admin Trade Name Freq PRN Reason Stop Dose Admin Acetaminophen 1,000 mg 11/30/18 12:16 11/30/18 12:44 Ofirmev Injection - IVPB 11/30/18 12:17 1,000 mg ONCE ONE Administration Medical Decision Making - Medical Decision Making 11/30/18 12:56 EKG - SR rate of 100 bpm, LAD, intervals abn - pr:238ms, QRS:96ms, QTc:443ms, no st elevation or depression, t waves inverted aVL 11/30/18 13:05 Laboratory Tests 07/12/18 11/30/18 11/30/18 05:40 12:07 12:15 WBC Hgb Hct Plt Count INR 1.28 H BUN 27 H Creatinine 1.2 Lactic Acid Creatine Kinase CK-MB (CK-2) Troponin I < 0.02 Urine Blood Urine Nitrite Ur Leukocyte Esterase Urine WBC (Auto) Urine Casts (Auto) U Epithel Cells (Auto) Urine Bacteria (Auto) Influenza A (Rapid) Influenza B (Rapid) 11/30/18 11/30/18 11/30/18 12:15 12:15 12:15 WBC 9.9 Hgb 12.5 Hct 39.9 Plt Count 159 INR BUN 28.6 H Creatinine 1.6 H Lactic Acid Creatine Kinase 80 CK-MB (CK-2) < 1.0 Troponin I Urine Blood Urine Nitrite Ur Leukocyte Esterase Urine WBC (Auto) Urine Casts (Auto) U Epithel Cells (Auto) Urine Bacteria (Auto) Influenza A (Rapid) Negative Influenza B (Rapid) Negative 11/30/18 11/30/18 12:15 12:15 WBC Hgb Hct Plt Count INR BUN Creatinine Lactic Acid 2.7 H* Creatine Kinase CK-MB (CK-2) Troponin I Urine Blood Negative Urine Nitrite Negative Ur Leukocyte Esterase Negative Urine WBC (Auto) 1 Urine Casts (Auto) 8 U Epithel Cells (Auto) 2.2 Urine Bacteria (Auto) 2.2 Influenza A (Rapid) Influenza B (Rapid) CXR - no infiltrates seen CT abd and pelvis: no intraabdominal pathology, aneurysmal dilitation, LLL infiltrate Admit to pmd Clinical impression: sepsis, initial presentation pneumonia, initial presentation Discharge - Discharge Information Problems reviewed: Yes Clinical Impression/Diagnosis: Sepsis Qualifiers: Sepsis type: sepsis due to unspecified organism Sepsis acute organ dysfunction status: unspecified Qualified Code(s): A41.9 - Sepsis, unspecified organism Condition: Fair - Admission Yes - Follow up/Referral - Patient Discharge Instructions - Post Discharge Activity
--- NOTE | 2018-11-30 14:49 | HP ---
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 Patient is poor informant caregiver at bedside giving information. She says that this morning after receiving morning medication he was noticed with chills and rigors and felt "warm". She took his BP at home and she noted it was elevated. She called his PCP and they instructed him to come to ER. In ER noted with temp 103F, LA 2.7, tachycardic with HR 100s. Caregiver at bedside patient was recently treated with antibiotics from PCP for "chest congestin". 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 (cerebral aneurysm has two titanium clips) Cardiovascular: Yes: AFIB, Deep Vein Thrombosis, HTN, Hyperlipdemia Renal/: Yes: Renal Inusuff Musculoskeletal: Yes: Hemiparesis, Hemiplegia Endocrine: Yes: Diabetes Mellitus, Hypothyroidism - Past Surgical History Past Surgical History: Yes: Nephrectomy (right) - Smoking History Smoking history: Unknown if ever smoked Have you smoked in the past 12 months: No Aproximately how many cigarettes per day: 0 - Alcohol/Substance Use Hx Alcohol Use: No History of Substance Use: reports: None - Social History Usual Living Arrangement: Yes: With Spouse ADL: Support Services Occupation: Disabled, History of Recent Travel: No Home Medications - Allergies Allergies/Adverse Reactions: Allergies Allergy/AdvReac Type Severity Reaction Status Date / Time No Known Allergies Allergy Verified 07/11/18 11:03 - Home Medications Home Medications: Ambulatory Orders Aa/[place]/Arg/C/Zn/Cu [Lps Critical Care Liquid] 30 ml PO DAILY Acetaminophen 650 mg PO Q6H PRN 04/06/18 Amlodipine Besylate 10 mg PO DAILY 04/06/18 Apixaban [Eliquis -] 5 mg PO BID 04/06/18 Docusate Sodium [Colace -] 100 mg PO TID 04/06/18 Hydralazine HCl 25 mg PO QID 04/06/18 Levothyroxine [Synthroid -] 75 mcg PO DAILY 04/06/18 Tamsulosin HCl 0.8 mg PO DAILY 04/06/18 Donepezil HCl [Aricept -] 10 mg PO DAILY 07/11/18 Gabapentin [Neurontin -] 100 mg PO DAILY 07/11/18 Nitroglycerin Sublingual [Nitrostat -] 0.4 mg SL ONCE PRN 07/11/18 levETIRAcetam [Keppra Xr -] 750 mg PO BID 07/11/18 Metoprolol Succinate [Toprol XL -] 150 mg PO DAILY tab.sr.24h 07/13/18 Rosuvastatin [Crestor -] 10 mg PO HS tablet 07/13/18 Sitagliptin Phosphate [Januvia -] 50 mg PO DAILY@0700 tablet 07/13/18 Valsartan [Diovan] 320 mg PO DAILY tablet 07/13/18 Ascorbic Acid [Vitamin C] 500 mg PO DAILY 11/30/18 Dextran 70/Hypromellose [Artificial Tears] 1 each OP DAILY 11/30/18 Insulin Sliding Scale [Novolog Vial Sliding Scale -] See Protocol SQ ACHS Levocetirizine Dihydrochloride 5 mg PO DAILY 11/30/18 Multivitamins [Tab-A-Vit -] 1 tab PO DAILY 11/30/18 Review of Systems - Review of Systems Constitutional: reports: Chills, Fever, Weakness Eyes: reports: No Symptoms HENT: reports: No Symptoms Neck: reports: No Symptoms Cardiovascular: reports: Palpitations Respiratory: reports: Cough Gastrointestinal: reports: No Symptoms Genitourinary: reports: No Symptoms Breasts: reports: No Symptoms Reported Musculoskeletal: reports: No Symptoms Integumentary: reports: No Symptoms Neurological: reports: Pre-Existing Deficit Endocrine: reports: No Symptoms Hematology/Lymphatic: reports: No Symptoms Psychiatric: reports: No Symptoms Physical Examination Vital Signs: Vital Signs Temperature 99.9 F H 11/30/18 13:24 Pulse Rate 87 11/30/18 13:24 Respiratory Rate 20 11/30/18 13:24 Blood Pressure 120/70 11/30/18 13:24 O2 Sat by Pulse Oximetry (%) 94 L 11/30/18 13:24 Constitutional: Yes: No Distress, Calm Eyes: Yes: Conjunctiva Clear HENT: Yes: Atraumatic Cardiovascular: Yes: Regular Rate and Rhythm Respiratory: Yes: Regular, Diminished, On Nasal O2 Gastrointestinal: Yes: Normal Bowel Sounds, Soft Renal/: Yes: Incontinence Musculoskeletal: Yes: Muscle Weakness Extremities: Yes: WNL Edema: No Neurological: Yes: Alert, Pre-Existing Deficit, Weakness (L side residual) Psychiatric: Yes: Alert Labs: CBC, BMP 11/30/18 12:15 11/30/18 12:15 Imaging - Results Chest X-ray: Report Reviewed Problem List - Problems (1) Sepsis Assessment/Plan: -ID consult -no leukocytosis -febrile -received Vancomycin and Zosyn in ER -LA 2.7 -BC and UC Code(s): A41.9 - SEPSIS, UNSPECIFIED ORGANISM Qualifiers: Sepsis type: sepsis due to unspecified organism Sepsis acute organ dysfunction status: unspecified Qualified Code(s): A41.9 - Sepsis, unspecified organism (2) Afib Assessment/Plan: -Eliquis Code(s): I48.91 - UNSPECIFIED ATRIAL FIBRILLATION Qualifiers: (3) BPH (benign prostatic hyperplasia) Assessment/Plan: -Tamsulosin Code(s): N40.0 - BENIGN PROSTATIC HYPERPLASIA WITHOUT LOWER URINRY TRACT SYMP (4) CAD (coronary artery disease) Assessment/Plan: -Rosuvastatin Code(s): I25.10 - ATHSCL HEART DISEASE OF [place] CORONARY ARTERY W/O ANG PCTRS (5) DVT (deep venous thrombosis) Assessment/Plan: -Eliquis Code(s): I82.409 - ACUTE EMBOLISM AND THOMBOS UNSP DEEP VN UNSP LOWER EXTREMITY (6) Diabetes mellitus Assessment/Plan: -BGM ACHS -ISS -HgA1c -Sitagliptan Code(s): E11.9 - TYPE 2 DIABETES MELLITUS WITHOUT COMPLICATIONS (7) Hypertension Assessment/Plan: -Hydralazine, Amlodipine, Diovan -low Na diet Code(s): I10 - ESSENTIAL (PRIMARY) HYPERTENSION Qualifiers: Hypertension type: essential hypertension Qualified Code(s): I10 - Essential (primary) hypertension (8) Hypothyroid Assessment/Plan: -Levothyroxine Code(s): E03.9 - HYPOTHYROIDISM, UNSPECIFIED Qualifiers: Hypothyroidism type: unspecified Qualified Code(s): E03.9 - Hypothyroidism , unspecified (9) Seizure Assessment/Plan: -Keppra Code(s): R56.9 - UNSPECIFIED CONVULSIONS Assessment/Plan see problem list SCDs
[2018-11-30] MEDS ORDERED: ACETAMINOPHEN 325 MG TABLET (FP) PO PRN (14:56)
[2018-11-30] MEDS ORDERED: hydrALAZINE HCL 50 MG TABLET (FP) PO ONE (15:11)
--- NOTE | 2018-11-30 15:12 | EKG ---
Test Reason : Blood Pressure : / mmHG Vent. Rate : 100 BPM Atrial Rate : 100 BPM P-R Int : 238 ms QRS Dur : 096 ms QT Int : 344 ms P-R-T Axes : -08 -57 085 degrees QTc Int : 443 ms SINUS RHYTHM WITH 1ST DEGREE A-V BLOCK LEFT AXIS DEVIATION VOLTAGE CRITERIA FOR LEFT VENTRICULAR HYPERTROPHY ABNORMAL ECG WHEN COMPARED WITH ECG OF 12-JUL-2018 15:12, VENT. RATE HAS INCREASED BY 39 BPM INCOMPLETE LEFT BUNDLE BRANCH BLOCK IS NO LONGER PRESENT Confirmed by SAMEER JAVIER, JOSE ([id number]) on 11/30/2018 3:12:16 PM Referred By: Confirmed By:JOSE ESTRELLA MD
[2018-11-30] MEDS ORDERED: AZITHROMYCIN IVPB 500 MG/250 ML BAG IVPB ONE (17:43)
[2018-11-30] MEDS ORDERED: CEFTRIAXONE 2 GM-D5W BAG 2 GM/50 ML BAG IVPB SCH (17:45)
[2018-11-30] MEDS: INSULIN SLIDING SCALE (NOVOLOG) 1 VIAL SQ SCH ×2 (17:46→22:13)
--- NOTE | 2018-11-30 17:46 | PN ---
Progress Note (short form) - Note Progress Note: ID consult dictated imp/reccd 68 yo man admitted from home with fever and cough he is alert and conversant denies vomiting +abdominal pain on ct scan abd/pelvis he has a RLL infiltrate CAP- rocephin/zithromax cultures urinary antigens he got vanco/zosyn in ED right hemiparesis renal insufficiency pericardial effusion- will order echo Problem List - Problems (1) Pneumonia Code(s): J18.9 - PNEUMONIA, UNSPECIFIED ORGANISM Qualifiers: Laterality: left Lung location: lower lobe of lung (2) Cerebrovascular disease Code(s): I67.9 - CEREBROVASCULAR DISEASE, UNSPECIFIED (3) Pericardial effusion Code(s): I31.3 - PERICARDIAL EFFUSION (NONINFLAMMATORY) (4) Renal insufficiency Code(s): N28.9 - DISORDER OF KIDNEY AND URETER, UNSPECIFIED
[2018-11-30] MEDS ORDERED: CEFTRIAXONE 1 GM/50 ML BAG ONE (17:48)
[2018-11-30] MEDS: hydrALAZINE HCL 25 MG TABLET (FP) PO SCH ×2 (18:45→22:18)
[2018-11-30] MEDS ORDERED: INSULIN (NOVOLOG) ASPART 100 UNITS/ML 10ML VIAL ONE (21:58)
[2018-11-30] MEDS: levETIRAcetam 250 MG TABLET (FP) PO SCH (22:17)
[2018-11-30] MEDS: ROSUVASTATIN CA 10 MG TABLET (FP) PO SCH (22:17)
[2018-11-30] MEDS: DOCUSATE SODIUM 100 MG CAPSULE (FP) PO SCH (22:17)
[2018-11-30] MEDS: APIXABAN 5 MG TABLET PO SCH (22:18)
[2018-12-01 03:54] LABS: VENOUS PC02 47.1 mmHg (38-52); VENOUS PH 7.43 (7.31-7.41); VENOUS PO2 60.3 mmHg (28-48)
[2018-12-01] MEDS: INSULIN SLIDING SCALE (NOVOLOG) 1 VIAL SQ SCH ×4 (06:36→22:06)
[2018-12-01] MEDS: DOCUSATE SODIUM 100 MG CAPSULE (FP) PO SCH ×3 (06:36→21:56)
[2018-12-01] MEDS: sitaGLIPtin PHOSPHATE 50 MG TABLET PO SCH (06:36)
[2018-12-01] MEDS: LEVOTHYROXINE NA 75 MCG TABLET (FP) PO SCH (06:36)
[2018-12-01 08:03] LABS: BASO % 0.4 % (0-2.0); EOS % 2.4 % (0-4.5); HEMATOCRIT 33.8 % (35.4-49); HEMOGLOBIN 10.7 GM/dL (11.7-16.9); LYMPH % 12.9 % (8-40); MCH 22.4 pg (25.7-33.7); MCHC 31.7 g/dl (32.0-35.9); MEAN CELL VOLUME 70.6 fl (80-96); MONO % 4.3 % (3.8-10.2); PLATELET COUNT 149 K/MM3 (134-434); RBC 4.78 M/mm3 (4.00-5.60); WHITE BLOOD COUNT 11.8 K/mm3 (4.0-10.0)
[2018-12-01 08:38] VITALS: BMI 29.9
[2018-12-01 08:40] LABS: ALBUMIN 2.9 g/dl (3.4-5.0); BILIRUBIN,TOTAL 0.5 mg/dL (0.2-1); BLOOD UREA NITROGEN 30.2 mg/dL (7-18); CALCIUM 8.1 mg/dL (8.5-10.1); CREATININE 1.5 mg/dL (0.55-1.3); MAGNESIUM 2.4 mg/dL (1.8-2.4); PHOSPHOROUS 3.4 mg/dL (2.5-4.9); POTASSIUM 3.6 mmol/L (3.5-5.1); TOT PROT 7.1 g/dl (6.4-8.2)
[2018-12-01] MEDS ORDERED: DEXTROSE 5%-WATER 100 ML IVPB ONE (10:48)
[2018-12-01] MEDS: LORATADINE 10 MG TABLET PO SCH (10:58)
[2018-12-01] MEDS: APIXABAN 5 MG TABLET PO SCH ×2 (10:58→21:56)
[2018-12-01] MEDS: ASCORBIC ACID 500 MG TABLET (FP) PO SCH (10:58)
[2018-12-01] MEDS: GABAPENTIN 100 MG CAPSULE (FP) PO SCH (10:58)
[2018-12-01] MEDS: MULTIVITAMINS (DAILY MVI) TABLET (FP) PO SCH (10:58)
[2018-12-01] MEDS: hydrALAZINE HCL 25 MG TABLET (FP) PO SCH ×4 (10:59→21:56)
[2018-12-01] MEDS: VALSARTAN 160 MG TABLET (UD) PO SCH (10:59)
[2018-12-01] MEDS: levETIRAcetam 250 MG TABLET (FP) PO SCH ×2 (10:59→21:56)
[2018-12-01] MEDS: amLODIPine BESYLATE 10 MG TABLET (FP) PO SCH (10:59)
[2018-12-01] MEDS: TAMSULOSIN HCL 0.4 MG CAP PO SCH (10:59)
[2018-12-01] MEDS: DONEPEZIL HCL 5 MG TABLET (FP) PO SCH (11:00)
[2018-12-01] MEDS: CEFTRIAXONE 2 GM in DEXTROSE 5%-WATER 100 ML IVPB SCH (11:00)
[2018-12-01] MEDS ORDERED: FLU VACCINE QUAD 60 MCG/0.5 ML (MDV 19-20) IM ONE (15:00)
--- NOTE | 2018-12-01 15:35 | PN ---
Progress Note, Physician Chief Complaint: patient seen and examiend on iv abx for RLL - Current Medication List Current Medications: Active Medications Acetaminophen (Tylenol -) 650 mg PO Q6H PRN PRN Reason: PAIN 1-5 Amlodipine Besylate (Norvasc -) 10 mg PO DAILY [facility] Last Admin: 12/01/18 10:59 Dose: 10 mg Apixaban (Eliquis -) 5 mg PO BID [facility] Last Admin: 12/01/18 10:58 Dose: 5 mg Ascorbic Acid (Vitamin C -) 500 mg PO DAILY [facility] Last Admin: 12/01/18 10:58 Dose: 500 mg Docusate Sodium (Colace -) 100 mg PO TID [facility] Last Admin: 12/01/18 06:36 Dose: 100 mg Donepezil HCl (Aricept -) 10 mg PO DAILY [facility] Last Admin: 12/01/18 11:00 Dose: 10 mg Gabapentin (Neurontin -) 100 mg PO DAILY [facility] Last Admin: 12/01/18 10:58 Dose: 100 mg Hydralazine HCl (Apresoline -) 25 mg PO QID [facility] Last Admin: 12/01/18 10:59 Dose: 25 mg Ceftriaxone Sodium 2 gm/ (Dextrose) 100 mls @ 200 mls/hr IVPB DAILY [facility]; Protocol Last Admin: 12/01/18 11:00 Dose: 200 mls/hr Insulin Aspart (Novolog Vial Sliding Scale -) 1 vial SQ ACHS [facility]; Protocol Last Admin: 12/01/18 11:27 Dose: Not Given Levetiracetam (Keppra -) 750 mg PO BID [facility] Last Admin: 12/01/18 10:59 Dose: 750 mg Levothyroxine Sodium (Synthroid -) 75 mcg PO AM [facility] Last Admin: 12/01/18 06:36 Dose: 75 mcg Loratadine (Claritin -) 10 mg PO DAILY [facility] Last Admin: 12/01/18 10:58 Dose: 10 mg Metoprolol Succinate (Toprol Xl -) 150 mg PO DAILY [facility] Last Admin: 12/01/18 10:59 Dose: 150 mg Multivitamins/Minerals/Vitamin C (Tab-A-Vit -) 1 tab PO DAILY [facility] Last Admin: 12/01/18 10:58 Dose: 1 tab Rosuvastatin Calcium (Crestor -) 10 mg PO HS [facility] Last Admin: 11/30/18 22:17 Dose: 10 mg Sitagliptin Phosphate (Januvia -) 50 mg PO DAILY@0700 [facility] Last Admin: 12/01/18 06:36 Dose: 50 mg Tamsulosin HCl (Flomax -) 0.8 mg PO DAILY@0830 [facility] Last Admin: 12/01/18 10:59 Dose: 0.8 mg Valsartan (Diovan -) 320 mg PO DAILY [facility] Last Admin: 12/01/18 10:59 Dose: 320 mg - Objective Vital Signs: Vital Signs Temperature 98.0 F 12/01/18 10:00 Pulse Rate 56 L 12/01/18 10:00 Respiratory Rate 18 12/01/18 10:00 Blood Pressure 146/72 12/01/18 10:00 O2 Sat by Pulse Oximetry (%) 97 12/01/18 09:00 Constitutional: Yes: Calm Cardiovascular: Yes: Regular Rate and Rhythm, S1, S2 Respiratory: Yes: Diminished Gastrointestinal: Yes: Normal Bowel Sounds, Soft Neurological: Yes: Pre-Existing Deficit Labs: CBC, BMP 12/01/18 06:56 12/01/18 06:56 INR, PTT INR Cancelled 11/30/18 12:15 Problem List - Problems (1) Sepsis Assessment/Plan: broad spectrum iv bx ID on board Code(s): A41.9 - SEPSIS, UNSPECIFIED ORGANISM Qualifiers: Sepsis type: sepsis due to unspecified organism Sepsis acute organ dysfunction status: unspecified Qualified Code(s): A41.9 - Sepsis, unspecified organism (2) Afib Assessment/Plan: eliquis bid Code(s): I48.91 - UNSPECIFIED ATRIAL FIBRILLATION Qualifiers: (3) Hypothyroid Assessment/Plan: tsh noted synthroid Code(s): E03.9 - HYPOTHYROIDISM, UNSPECIFIED Qualifiers: Hypothyroidism type: unspecified Qualified Code(s): E03.9 - Hypothyroidism , unspecified (4) Pericardial effusion Assessment/Plan: echo ordered Code(s): I31.3 - PERICARDIAL EFFUSION (NONINFLAMMATORY)
--- NOTE | 2018-12-01 16:21 | ECHO ---
Name: RIVER MONTESDANIEL Exam:Adult Echocardiogram Study Date: 12/01/2018 01:44 PM Age: 68 yrs Reason For Study: EVALUATE PERICARDIAL EFFUSION Height: 68 in Weight: 195 lb BSA: 2.0 m2 MMode/2D Measurements & Calculations IVSd: 1.4 cm Ao root diam: 3.5 cm LVIDd: 5.2 cm LA dimension: 3.3 cm LVIDs: 3.7 cm LVPWd: 1.3 cm EDV(Teich): 131.5 ml LVOT diam: 2.1 cm ESV(Teich): 58.0 ml Doppler Measurements & Calculations MV E max lane: 64.7 cm/sec Ao V2 max: 149.7 cm/sec MV A max lane: 130.8 cm/sec Ao max P.0 mmHg MV E/A: 0.49 Ao V2 mean: 113.7 cm/sec MV dec time: 0.14 sec Ao mean P.7 mmHg Ao V2 VTI: 32.4 cm DANAE(V,D): 3.1 cm2 LV V1 max P.[address]: 225.3 cm/sec LV V1 max: 130.3 cm/sec MR max P.3 mmHg PA V2 max: 121.2 cm/sec PI end-d lane: 116.4 cm/sec PA max P.9 [address]: 4.1 cm/sec Med E/e': 15.[address]: 4.4 cm/sec Lat E/e': 14.7 Procedure A complete two-dimensional transthoracic echocardiogram was performed (2D, M-mode, Doppler and color flow Doppler). Left Ventricle There is moderate concentric left ventricular hypertrophy. The left ventricular ejection fraction is normal. Ejection Fraction = 60-65%. The left ventricular wall motion is normal. Right Ventricle The right ventricle is normal in size and function. Atria Normal left and right atrial size and function. Mitral Valve There is no mitral regurgitation noted. Tricuspid Valve There is trace tricuspid regurgitation. There was insufficient TR detected to calculate RV systolic p ressure. Aortic Valve No hemodynamically significant valvular aortic stenosis. No aortic regurgitation is present. Pulmonic Valve There is no pulmonic valvular regurgitation. Great Vessels The aortic root is normal size. Pericardium/Pleura Small pericardial effusion (<1cm). There are no echocardiographic indications of cardiac tamponade. Interpretation Summary There is moderate concentric left ventricular hypertrophy. The left ventricular ejection fraction is normal. The right ventricle is normal in size and function. There is trace tricuspid regurgitation. Small pericardial effusion (<1cm) There are no echocardiographic indications of cardiac tamponade. MD Mike Berry 12/01/2018 04:21 PM
--- NOTE | 2018-12-01 17:55 | PN ---
Progress Note (short form) - Note Progress Note: alert eating dinner no abdominal pain Vital Signs Period Temp Pulse Resp BP Sys/Bragg Pulse Ox Last 24 Hr 98 F-99.6 F 54-67 18-18 120-146/62-78 97-98 cor-rrr llungs decreased bs at bases abd soft,nt ext trace edema CBC, BMP 12/01/18 06:56 12/01/18 06:56 Microbiology 11/30/18 12:15 Blood - Peripheral Venous Blood Culture - Preliminary NO GROWTH OBTAINED AFTER 24 HOURS, INCUBATION TO CONTINUE FOR 4 DAYS. 11/30/18 12:00 Blood - Peripheral Venous Blood Culture - Preliminary NO GROWTH OBTAINED AFTER 24 HOURS, INCUBATION TO CONTINUE FOR 4 DAYS. 11/30/18 12:15 Urine - Urine - Catheterized Urine Culture - Final NO GROWTH OBTAINED imp/reccd CAP- rocephin/zithromax-clinically improved cultures urinary antigens right hemiparesis renal insufficiency pericardial effusion- f/u echo
[2018-12-01] MEDS: ROSUVASTATIN CA 10 MG TABLET (FP) PO SCH (21:56)
[2018-12-02] MEDS: DOCUSATE SODIUM 100 MG CAPSULE (FP) PO SCH ×3 (06:37→22:09)
[2018-12-02] MEDS: sitaGLIPtin PHOSPHATE 50 MG TABLET PO SCH (06:37)
[2018-12-02] MEDS: INSULIN SLIDING SCALE (NOVOLOG) 1 VIAL SQ SCH ×4 (06:37→22:09)
[2018-12-02] MEDS: LEVOTHYROXINE NA 75 MCG TABLET (FP) PO SCH (06:37)
[2018-12-02 08:34] LABS: BASO % 0.3 % (0-2.0); EOS % 4.6 % (0-4.5); HEMATOCRIT 36.2 % (35.4-49); HEMOGLOBIN 11.4 GM/dL (11.7-16.9); LYMPH % 17.8 % (8-40); MCH 22.2 pg (25.7-33.7); MCHC 31.4 g/dl (32.0-35.9); MEAN CELL VOLUME 70.5 fl (80-96); MEAN PLT VOLUME 8.7 fl (7.5-11.1); MONO % 5.4 % (3.8-10.2); NEUT % 71.9 % (42.8-82.8); PLATELET COUNT 146 K/MM3 (134-434); RBC 5.13 M/mm3 (4.00-5.60); RDW 16.9 % (11.9-15.9); WHITE BLOOD COUNT 8.5 K/mm3 (4.0-10.0)
[2018-12-02 09:23] LABS: BILIRUBIN,TOTAL 0.4 mg/dL (0.2-1); BLOOD UREA NITROGEN 29.7 mg/dL (7-18); CALCIUM 8.4 mg/dL (8.5-10.1); CREATININE 1.2 mg/dL (0.55-1.3); POTASSIUM 3.5 mmol/L (3.5-5.1); TOT PROT 7.5 g/dl (6.4-8.2)
[2018-12-02] MEDS ORDERED: DEXTROSE 5%-WATER 100 ML IVPB ONE (09:26)
--- NOTE | 2018-12-02 09:46 | CONS ---
INFECTIOUS DISEASE CONSULTATION DATE OF CONSULTATION: 11/30/2018 This is a 68-year-old man who was admitted from home. He has an aide at home, and he lives at home with his . He was noted this morning to have chills and felt warm. He has apparently been having cough at home, and he also complained of abdominal pain. He was brought to the emergency room with these complaints. He had a fever of 103 and elevated lactic acid. He had a chest x-ray that was unremarkable. He was sent for a CAT scan given his complaints of abdominal pain, and on abdominal/ pelvic CAT scan, he was noted to have a left lower lobe pulmonary infiltrate. Prior to the CAT scan, he received vancomycin and Zosyn in the ER. I am asked to see him for further evaluation. He is quite awake and alert. He reports that he has not had any vomiting, that he lives at home with his . He denies any bed sores. He denies any difficulty urinating. ALLERGIES: He has no known drug allergies. PAST MEDICAL HISTORY: Notable for a cerebral aneurysm that has been clipped, a history of atrial fibrillation, DVT, hypertension, hyperlipidemia, renal insufficiency, hemiparesis, hemiplegia on the right. He has had a history of diabetes and hypothyroidism. He has a history of a CVA in 2013. He has a history of coronary artery disease and is status post [place]. He has chronic kidney disease as well. SURGICAL HISTORY: Notable for a right nephrectomy. He is followed by Dr. Ruiz. SOCIAL HISTORY: He is retired. No history of cigarette or substance use. He lives with his spouse. He is originally from [facility]. There is no history of any recent travel. MEDICATIONS: Include amlodipine, apixaban, hydralazine, Synthroid, tamsulosin, vitamin C, Nitrostat, Toprol, Keppra, Neurontin, Diovan, Januvia, Crestor, Colace, and Eliquis. REVIEW OF SYSTEMS: He denies diarrhea. He denies nausea or vomiting. He denies dysuria. PHYSICAL EXAMINATION: Vital Signs: His T-max was 103. Current temperature is 99.9. Pulse is 79. Blood pressure 121/70. Respiratory rate is 18. He is saturating 99% on room air. HEENT: He is normocephalic. His eyes are anicteric. Neck: Supple. Lungs: Diminished breath sounds at the bases. Heart: Regular rate and rhythm. Abdomen: Soft. He has some mild discomfort in the suprapubic and bilateral lower quadrants. Extremities: Without edema. LABORATORY DATA: Labs are notable for a white count of 9.9, hemoglobin 12.5, platelets are 159. BUN is 28 and creatinine 1.6. Lactic acid was 2.7, repeat of 2. Urinalysis is negative, 1 white cell, negative nitrites and leukocyte esterase. Influenza screen was done and is negative. Cultures are pending. CAT scan findings are as stated. He has evidence of left lower lobe pneumonia. As well, he has a pericardial effusion. The appendix is not definitely visualized ; so, there are no indirect signs of acute appendicitis. No evidence of diverticulitis or colitis. He has moderate prostate enlargement, and he has evidence of an aneurysm. He has as well as pancreas head cyst, and he has a right flank hernia. He is status post right nephrectomy. In summary, this is a 68-year-old man. Last admission was in July. Admitted from home with: 1. Fever and cough with a left lower lobe infiltrate. Cultures have been sent. He got vancomycin and Zosyn in the ER. Would get urinary antigens and treat him with Rocephin and Zithromax at this time. 2. Right hemiparesis. 3. Renal insufficiency. We will adjust antibiotics for his chronic kidney disease. 4. Pericardial effusion. Will order an echo. Further recommendations to follow. [place] [id number] MTDD
[2018-12-02] MEDS: TAMSULOSIN HCL 0.4 MG CAP PO SCH (09:57)
[2018-12-02] MEDS: ASCORBIC ACID 500 MG TABLET (FP) PO SCH (09:58)
[2018-12-02] MEDS: MULTIVITAMINS (DAILY MVI) TABLET (FP) PO SCH (09:58)
[2018-12-02] MEDS: AZITHROMYCIN 250 MG TABLET PO SCH (09:59)
[2018-12-02] MEDS: levETIRAcetam 250 MG TABLET (FP) PO SCH ×2 (09:59→22:10)
[2018-12-02] MEDS: GABAPENTIN 100 MG CAPSULE (FP) PO SCH (09:59)
[2018-12-02] MEDS: DONEPEZIL HCL 5 MG TABLET (FP) PO SCH (09:59)
[2018-12-02] MEDS: amLODIPine BESYLATE 10 MG TABLET (FP) PO SCH (09:59)
[2018-12-02] MEDS: LORATADINE 10 MG TABLET PO SCH (09:59)
[2018-12-02] MEDS: VALSARTAN 160 MG TABLET (UD) PO SCH (10:00)
[2018-12-02] MEDS: hydrALAZINE HCL 25 MG TABLET (FP) PO SCH ×4 (10:01→22:09)
[2018-12-02] MEDS: APIXABAN 5 MG TABLET PO SCH ×2 (10:01→22:10)
[2018-12-02] MEDS: CEFTRIAXONE 2 GM in DEXTROSE 5%-WATER 100 ML IVPB SCH (10:01)
--- NOTE | 2018-12-02 10:50 | PN ---
Progress Note (short form) - Note Progress Note: doing well afebrile no complaints less cough Vital Signs Period Temp Pulse Resp BP Sys/Bragg Pulse Ox Last 24 Hr 97.7 F-98.6 F 52-76 18-18 130-153/75-85 97 cor-rrr lllungs decreased bs at bases abd soft,nt ext hemiparesis with flexed Left leg CBC, BMP 12/02/18 07:20 12/02/18 07:20 Microbiology 11/30/18 12:15 Blood - Peripheral Venous Blood Culture - Preliminary NO GROWTH OBTAINED AFTER 24 HOURS, INCUBATION TO CONTINUE FOR 4 DAYS. 11/30/18 12:00 Blood - Peripheral Venous Blood Culture - Preliminary NO GROWTH OBTAINED AFTER 24 HOURS, INCUBATION TO CONTINUE FOR 4 DAYS. 11/30/18 12:15 Urine - Urine - Catheterized Urine Culture - Final NO GROWTH OBTAINED a/p CAP- rocephin/[id number] #3/7 cultures are negative urinary antigens pending doing well no objection to switch to po ceftin/zithromax to complete 7 days total antibiotics with ceftin, 5 days total with zithromax right hemiparesis renal insufficiency pericardial effusion- small effusion noted please call back if needed Problem List - Problems (1) Pneumonia Code(s): J18.9 - PNEUMONIA, UNSPECIFIED ORGANISM Qualifiers: Laterality: left Lung location: lower lobe of lung (2) Cerebrovascular disease Code(s): I67.9 - CEREBROVASCULAR DISEASE, UNSPECIFIED (3) Pericardial effusion Code(s): I31.3 - PERICARDIAL EFFUSION (NONINFLAMMATORY) (4) Renal insufficiency Code(s): N28.9 - DISORDER OF KIDNEY AND URETER, UNSPECIFIED
--- NOTE | 2018-12-02 13:16 | DS ---
Physical Examination Vital Signs: Vital Signs Temperature 98 F 12/02/18 05:00 Pulse Rate 52 L 12/02/18 05:00 Respiratory Rate 18 12/02/18 05:00 Blood Pressure 153/85 12/02/18 05:00 O2 Sat by Pulse Oximetry (%) 97 12/01/18 21:00 Constitutional: Yes: Calm Cardiovascular: Yes: Regular Rate and Rhythm, S1, S2 Respiratory: Yes: CTA Bilaterally Gastrointestinal: Yes: Normal Bowel Sounds, Soft Neurological: Yes: Pre-Existing Deficit Labs: CBC, BMP 12/02/18 07:20 12/02/18 07:20 Discharge Summary Problems reviewed: Yes Reason For Visit: SEPSIS Current Active Problems Pneumonia (Acute) Renal insufficiency (Acute) Sepsis (Acute) Hospital Course: PCP: Roxana Ruiz - Admission Chief Complaint: Fever History of Present Illness: Patient is a 68 y/o male with past medical history of Afib, 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 Patient is poor informant caregiver at bedside giving information. She says that this morning after receiving morning medication he was noticed with chills and rigors and felt "warm". She took his BP at home and she noted it was elevated. She called his PCP and they instructed him to come to ER. In ER noted with temp 103F, LA 2.7, tachycardic with HR 100s. Caregiver at bedside patient was recently treated with antibiotics from PCP for "chest congestin". found to have PNA got iv abx and now change to po antibiotics Condition: Fair - Instructions Referrals: Roxana Ruiz MD [Primary Care Provider] - [facility]position[facility] - Home Medications Comprehensive Discharge Medication List: Ambulatory Orders Aa/[place]/Arg/C/Zn/Cu [Lps Critical Care Liquid] 30 ml PO DAILY Acetaminophen 650 mg PO Q6H PRN 04/06/18 Amlodipine Besylate 10 mg PO DAILY 04/06/18 Apixaban [Eliquis -] 5 mg PO BID 04/06/18 Docusate Sodium [Colace -] 100 mg PO TID 04/06/18 Hydralazine HCl 25 mg PO QID 04/06/18 Levothyroxine [Synthroid -] 75 mcg PO DAILY 04/06/18 Tamsulosin HCl 0.8 mg PO DAILY 04/06/18 Donepezil HCl [Aricept -] 10 mg PO DAILY 07/11/18 Gabapentin [Neurontin -] 100 mg PO DAILY 07/11/18 Nitroglycerin Sublingual [Nitrostat -] 0.4 mg SL ONCE PRN 07/11/18 levETIRAcetam [Keppra Xr -] 750 mg PO BID 07/11/18 Metoprolol Succinate [Toprol XL -] 150 mg PO DAILY tab.sr.24h 07/13/18 Rosuvastatin [Crestor -] 10 mg PO HS tablet 07/13/18 Sitagliptin Phosphate [Januvia -] 50 mg PO DAILY@0700 tablet 07/13/18 Valsartan [Diovan] 320 mg PO DAILY tablet 07/13/18 Ascorbic Acid [Vitamin C] 500 mg PO DAILY 11/30/18 Dextran 70/Hypromellose [Artificial Tears] 1 each OP DAILY 11/30/18 Insulin Sliding Scale [Novolog Vial Sliding Scale -] See Protocol SQ ACHS Levocetirizine Dihydrochloride 5 mg PO DAILY 11/30/18 Multivitamins [Tab-A-Vit -] 1 tab PO DAILY 11/30/18
--- NOTE | 2018-12-02 15:41 | PN ---
Progress Note (short form) - Note Progress Note: patient works on weekend and cannot take him home till wednesday the aide comes on wednesday no aide on weekend cannot take him home will stay in hospital for weekend Problem List - Problems (1) Sepsis Code(s): A41.9 - SEPSIS, UNSPECIFIED ORGANISM Qualifiers: Sepsis type: sepsis due to unspecified organism Sepsis acute organ dysfunction status: unspecified Qualified Code(s): A41.9 - Sepsis, unspecified organism (2) Afib Code(s): I48.91 - UNSPECIFIED ATRIAL FIBRILLATION Qualifiers: (3) Hypothyroid Code(s): E03.9 - HYPOTHYROIDISM, UNSPECIFIED Qualifiers: Hypothyroidism type: unspecified Qualified Code(s): E03.9 - Hypothyroidism , unspecified (4) Pericardial effusion Code(s): I31.3 - PERICARDIAL EFFUSION (NONINFLAMMATORY)
[2018-12-02] MEDS ORDERED: INSULIN (NOVOLOG) ASPART 100 UNITS/ML 10ML VIAL ONE (19:14)
[2018-12-02] MEDS: ROSUVASTATIN CA 10 MG TABLET (FP) PO SCH (22:09)
[2018-12-03] MEDS: INSULIN SLIDING SCALE (NOVOLOG) 1 VIAL SQ SCH ×2 (06:01→12:59)
[2018-12-03] MEDS: DOCUSATE SODIUM 100 MG CAPSULE (FP) PO SCH ×3 (06:32→22:03)
[2018-12-03] MEDS: sitaGLIPtin PHOSPHATE 50 MG TABLET PO SCH (06:32)
[2018-12-03] MEDS: LEVOTHYROXINE NA 75 MCG TABLET (FP) PO SCH (06:32)
[2018-12-03] MEDS ORDERED: DEXTROSE 5%-WATER 100 ML IVPB ONE (08:56)
--- NOTE | 2018-12-03 09:08 | PN ---
Progress Note, Physician Chief Complaint: Pneumonia History of Present Illness: Awaiting discharge on wednesday once home care services resume - Current Medication List Current Medications: Active Medications Acetaminophen (Tylenol -) 650 mg PO Q6H PRN PRN Reason: PAIN 1-5 Amlodipine Besylate (Norvasc -) 10 mg PO DAILY [facility] Last Admin: 12/02/18 09:59 Dose: 10 mg Apixaban (Eliquis -) 5 mg PO BID [facility] Last Admin: 12/02/18 22:10 Dose: 5 mg Ascorbic Acid (Vitamin C -) 500 mg PO DAILY [facility] Last Admin: 12/02/18 09:58 Dose: 500 mg Azithromycin (Zithromax -) 250 mg PO DAILY [facility] Last Admin: 12/02/18 09:59 Dose: 250 mg Docusate Sodium (Colace -) 100 mg PO TID [facility] Last Admin: 12/03/18 06:32 Dose: 100 mg Donepezil HCl (Aricept -) 10 mg PO DAILY [facility] Last Admin: 12/02/18 09:59 Dose: 10 mg Gabapentin (Neurontin -) 100 mg PO DAILY [facility] Last Admin: 12/02/18 09:59 Dose: 100 mg Hydralazine HCl (Apresoline -) 25 mg PO QID [facility] Last Admin: 12/02/18 22:09 Dose: 25 mg Ceftriaxone Sodium 2 gm/ (Dextrose) 100 mls @ 200 mls/hr IVPB DAILY [facility]; Protocol Last Admin: 12/02/18 10:01 Dose: 200 mls/hr Insulin Aspart (Novolog Vial Sliding Scale -) 1 vial SQ ACHS [facility]; Protocol Last Admin: 12/03/18 06:01 Dose: Not Given Levetiracetam (Keppra -) 750 mg PO BID [facility] Last Admin: 12/02/18 22:10 Dose: 750 mg Levothyroxine Sodium (Synthroid -) 75 mcg PO AM [facility] Last Admin: 12/03/18 06:32 Dose: 75 mcg Loratadine (Claritin -) 10 mg PO DAILY [facility] Last Admin: 12/02/18 09:59 Dose: 10 mg Metoprolol Succinate (Toprol Xl -) 150 mg PO DAILY [facility] Last Admin: 12/02/18 10:00 Dose: 150 mg Multivitamins/Minerals/Vitamin C (Tab-A-Vit -) 1 tab PO DAILY [facility] Last Admin: 12/02/18 09:58 Dose: 1 tab Rosuvastatin Calcium (Crestor -) 10 mg PO HS [facility] Last Admin: 12/02/18 22:09 Dose: 10 mg Sitagliptin Phosphate (Januvia -) 50 mg PO DAILY@0700 [facility] Last Admin: 12/03/18 06:32 Dose: 50 mg Tamsulosin HCl (Flomax -) 0.8 mg PO DAILY@0830 [facility] Last Admin: 12/02/18 09:57 Dose: 0.8 mg Valsartan (Diovan -) 320 mg PO DAILY [facility] Last Admin: 12/02/18 10:00 Dose: 320 mg - Objective Vital Signs: Vital Signs Temperature 98.4 F 12/03/18 06:00 Pulse Rate 59 L 12/03/18 06:00 Respiratory Rate 18 12/03/18 06:00 Blood Pressure 154/86 12/03/18 06:00 O2 Sat by Pulse Oximetry (%) 100 12/02/18 21:00 Constitutional: Yes: Well Nourished, No Distress, Calm Cardiovascular: Yes: Regular Rate and Rhythm Respiratory: Yes: Regular Gastrointestinal: Yes: Normal Bowel Sounds, Soft Genitourinary: Yes: Incontinence Musculoskeletal: Yes: Muscle Weakness Extremities: Yes: WNL (Left hemiperesis, generalized atrophy) Edema: No Peripheral Pulses WNL: Yes Neurological: Yes: Alert, Oriented Psychiatric: Yes: Alert, Oriented Labs: CBC, BMP 12/02/18 07:20 12/02/18 07:20 INR, PTT INR Cancelled 11/30/18 12:15 Problem List - Problems (1) Pneumonia Assessment/Plan: -Seen by ID -IV abx switched to PO abx -afebrile Problems reviewed: Yes Code(s): J18.9 - PNEUMONIA, UNSPECIFIED ORGANISM Qualifiers: Laterality: left Lung location: lower lobe of lung (2) Renal insufficiency Assessment/Plan: -Cr at baseline -Cultures negative -Likely 2/2 to dehydration Problems reviewed: Yes Code(s): N28.9 - DISORDER OF KIDNEY AND URETER, UNSPECIFIED (3) Sepsis Assessment/Plan: -resolved -afebrile -on PO abx -ID on board -2/2 to pneumonia -Cultures: Microbiology 11/30/18 12:15 Blood - Peripheral Venous Blood Culture - Preliminary NO GROWTH OBTAINED AFTER 48 HOURS, INCUBATION TO CONTINUE FOR 3 DAYS. 11/30/18 12:00 Blood - Peripheral Venous Blood Culture - Preliminary NO GROWTH OBTAINED AFTER 48 HOURS, INCUBATION TO CONTINUE FOR 3 DAYS. 12/01/18 17:30 Urine - Urine [place] Legionella Antigen - Final 12/01/18 17:30 Urine - Urine [place] Streptococcus pneumoniae Antigen (M - Final 11/30/18 12:15 Urine - Urine - Catheterized Urine Culture - Final NO GROWTH OBTAINED Problems reviewed: Yes Code(s): A41.9 - SEPSIS, UNSPECIFIED ORGANISM Qualifiers: Sepsis type: sepsis due to unspecified organism Sepsis acute organ dysfunction status: unspecified Qualified Code(s): A41.9 - Sepsis, unspecified organism (4) Afib Assessment/Plan: -Continue eliquis -rate controlled -chronic Problems reviewed: Yes Code(s): I48.91 - UNSPECIFIED ATRIAL FIBRILLATION Qualifiers: Assessment/Plan see problem list
[2018-12-03] MEDS: hydrALAZINE HCL 25 MG TABLET (FP) PO SCH ×4 (09:46→22:03)
[2018-12-03] MEDS: TAMSULOSIN HCL 0.4 MG CAP PO SCH (09:46)
[2018-12-03] MEDS: DONEPEZIL HCL 5 MG TABLET (FP) PO SCH (09:46)
[2018-12-03] MEDS: LORATADINE 10 MG TABLET PO SCH (09:46)
[2018-12-03] MEDS: VALSARTAN 160 MG TABLET (UD) PO SCH (09:47)
[2018-12-03] MEDS: CEFTRIAXONE 2 GM in DEXTROSE 5%-WATER 100 ML IVPB SCH (09:48)
[2018-12-03] MEDS: APIXABAN 5 MG TABLET PO SCH ×2 (09:48→22:03)
[2018-12-03] MEDS: levETIRAcetam 250 MG TABLET (FP) PO SCH ×2 (09:48→22:03)
[2018-12-03] MEDS: amLODIPine BESYLATE 10 MG TABLET (FP) PO SCH (09:49)
[2018-12-03] MEDS: GABAPENTIN 100 MG CAPSULE (FP) PO SCH (09:49)
[2018-12-03] MEDS: MULTIVITAMINS (DAILY MVI) TABLET (FP) PO SCH (09:49)
[2018-12-03] MEDS: ASCORBIC ACID 500 MG TABLET (FP) PO SCH (09:50)
[2018-12-03] MEDS: AZITHROMYCIN 250 MG TABLET PO SCH (09:50)
[2018-12-03] MEDS: ROSUVASTATIN CA 10 MG TABLET (FP) PO SCH (22:04)
[2018-12-04] MEDS: DOCUSATE SODIUM 100 MG CAPSULE (FP) PO SCH ×3 (06:43→21:33)
[2018-12-04] MEDS: LEVOTHYROXINE NA 75 MCG TABLET (FP) PO SCH (06:43)
[2018-12-04] MEDS: sitaGLIPtin PHOSPHATE 50 MG TABLET PO SCH (06:43)
--- NOTE | 2018-12-04 08:27 | PN ---
Progress Note, Physician Chief Complaint: Pneumonia History of Present Illness: Awaiting discharge on wednesday once home care services resume - Current Medication List Current Medications: Active Medications Acetaminophen (Tylenol -) 650 mg PO Q6H PRN PRN Reason: PAIN 1-5 Amlodipine Besylate (Norvasc -) 10 mg PO DAILY [facility] Last Admin: 12/03/18 09:49 Dose: 10 mg Apixaban (Eliquis -) 5 mg PO BID [facility] Last Admin: 12/03/18 22:03 Dose: 5 mg Ascorbic Acid (Vitamin C -) 500 mg PO DAILY [facility] Last Admin: 12/03/18 09:50 Dose: 500 mg Azithromycin (Zithromax -) 250 mg PO DAILY [facility] Last Admin: 12/03/18 09:50 Dose: 250 mg Docusate Sodium (Colace -) 100 mg PO TID [facility] Last Admin: 12/04/18 06:43 Dose: 100 mg Donepezil HCl (Aricept -) 10 mg PO DAILY [facility] Last Admin: 12/03/18 09:46 Dose: 10 mg Gabapentin (Neurontin -) 100 mg PO DAILY [facility] Last Admin: 12/03/18 09:49 Dose: 100 mg Hydralazine HCl (Apresoline -) 25 mg PO QID [facility] Last Admin: 12/03/18 22:03 Dose: 25 mg Ceftriaxone Sodium 2 gm/ (Dextrose) 100 mls @ 200 mls/hr IVPB DAILY [facility]; Protocol Last Admin: 12/03/18 09:48 Dose: 200 mls/hr Levetiracetam (Keppra -) 750 mg PO BID [facility] Last Admin: 12/03/18 22:03 Dose: 750 mg Levothyroxine Sodium (Synthroid -) 75 mcg PO AM [facility] Last Admin: 12/04/18 06:43 Dose: 75 mcg Loratadine (Claritin -) 10 mg PO DAILY [facility] Last Admin: 12/03/18 09:46 Dose: 10 mg Metoprolol Succinate (Toprol Xl -) 150 mg PO DAILY [facility] Last Admin: 12/03/18 09:49 Dose: 150 mg Multivitamins/Minerals/Vitamin C (Tab-A-Vit -) 1 tab PO DAILY [facility] Last Admin: 12/03/18 09:49 Dose: 1 tab Rosuvastatin Calcium (Crestor -) 10 mg PO HS [facility] Last Admin: 12/03/18 22:04 Dose: 10 mg Sitagliptin Phosphate (Januvia -) 50 mg PO DAILY@0700 [facility] Last Admin: 12/04/18 06:43 Dose: 50 mg Tamsulosin HCl (Flomax -) 0.8 mg PO DAILY@0830 [facility] Last Admin: 12/03/18 09:46 Dose: 0.8 mg Valsartan (Diovan -) 320 mg PO DAILY [facility] Last Admin: 12/03/18 09:47 Dose: 320 mg - Objective Vital Signs: Vital Signs Temperature 98.1 F 12/04/18 06:00 Pulse Rate 49 L 12/04/18 06:00 Respiratory Rate 18 12/04/18 06:00 Blood Pressure 169/86 12/04/18 06:00 O2 Sat by Pulse Oximetry (%) 98 12/03/18 21:00 Constitutional: Yes: Well Nourished, No Distress, Calm Cardiovascular: Yes: Regular Rate and Rhythm Respiratory: Yes: Regular Gastrointestinal: Yes: Normal Bowel Sounds, Soft Genitourinary: Yes: Incontinence Musculoskeletal: Yes: Muscle Weakness Extremities: Yes: WNL Edema: No Peripheral Pulses WNL: Yes Neurological: Yes: Alert, Oriented Psychiatric: Yes: Alert, Oriented Labs: CBC, BMP 12/02/18 07:20 12/02/18 07:20 INR, PTT INR Cancelled 11/30/18 12:15 Problem List - Problems (1) Pneumonia Assessment/Plan: -Seen by ID -IV abx switched to PO abx -afebrile Problems reviewed: Yes Code(s): J18.9 - PNEUMONIA, UNSPECIFIED ORGANISM Qualifiers: Laterality: left Lung location: lower lobe of lung (2) Renal insufficiency Assessment/Plan: -Cr at baseline -Cultures negative -Likely 2/2 to dehydration Problems reviewed: Yes Code(s): N28.9 - DISORDER OF KIDNEY AND URETER, UNSPECIFIED (3) Sepsis Assessment/Plan: -resolved -afebrile -on PO abx -ID on board -2/2 to pneumonia -Cultures: Microbiology 11/30/18 12:15 Blood - Peripheral Venous Blood Culture - Preliminary NO GROWTH OBTAINED AFTER 48 HOURS, INCUBATION TO CONTINUE FOR 3 DAYS. 11/30/18 12:00 Blood - Peripheral Venous Blood Culture - Preliminary NO GROWTH OBTAINED AFTER 48 HOURS, INCUBATION TO CONTINUE FOR 3 DAYS. 12/01/18 17:30 Urine - Urine [place] Legionella Antigen - Final 12/01/18 17:30 Urine - Urine [place] Streptococcus pneumoniae Antigen (M - Final 11/30/18 12:15 Urine - Urine - Catheterized Urine Culture - Final NO GROWTH OBTAINED Problems reviewed: Yes Code(s): A41.9 - SEPSIS, UNSPECIFIED ORGANISM Qualifiers: Sepsis type: sepsis due to unspecified organism Sepsis acute organ dysfunction status: unspecified Qualified Code(s): A41.9 - Sepsis, unspecified organism (4) Afib Assessment/Plan: -Continue eliquis -rate controlled -chronic Problems reviewed: Yes Code(s): I48.91 - UNSPECIFIED ATRIAL FIBRILLATION Qualifiers: Assessment/Plan see problem list D/C home in AM
[2018-12-04] MEDS: hydrALAZINE HCL 25 MG TABLET (FP) PO SCH ×4 (10:00→21:33)
[2018-12-04] MEDS: TAMSULOSIN HCL 0.4 MG CAP PO SCH (10:00)
[2018-12-04] MEDS ORDERED: PT OWN MED DRAWER 7, Y5N ONE (11:10)
[2018-12-04] MEDS ORDERED: DEXTROSE 5%-WATER 100 ML IVPB ONE (11:11)
[2018-12-04] MEDS: GABAPENTIN 100 MG CAPSULE (FP) PO SCH (11:41)
[2018-12-04] MEDS: APIXABAN 5 MG TABLET PO SCH ×2 (11:41→21:33)
[2018-12-04] MEDS: levETIRAcetam 250 MG TABLET (FP) PO SCH ×2 (11:42→21:33)
[2018-12-04] MEDS: VALSARTAN 160 MG TABLET (UD) PO SCH (11:42)
[2018-12-04] MEDS: ASCORBIC ACID 500 MG TABLET (FP) PO SCH (11:42)
[2018-12-04] MEDS: DONEPEZIL HCL 5 MG TABLET (FP) PO SCH (11:42)
[2018-12-04] MEDS: LORATADINE 10 MG TABLET PO SCH (11:42)
[2018-12-04] MEDS: MULTIVITAMINS (DAILY MVI) TABLET (FP) PO SCH (11:43)
[2018-12-04] MEDS: CEFTRIAXONE 2 GM in DEXTROSE 5%-WATER 100 ML IVPB SCH (11:43)
[2018-12-04] MEDS: AZITHROMYCIN 250 MG TABLET PO SCH (11:43)
[2018-12-04] MEDS: amLODIPine BESYLATE 10 MG TABLET (FP) PO SCH (11:43)
[2018-12-04] MEDS: ROSUVASTATIN CA 10 MG TABLET (FP) PO SCH (21:33)
[2018-12-05] MEDS: LEVOTHYROXINE NA 75 MCG TABLET (FP) PO SCH (06:11)
[2018-12-05] MEDS: sitaGLIPtin PHOSPHATE 50 MG TABLET PO SCH (06:11)
[2018-12-05] MEDS: DOCUSATE SODIUM 100 MG CAPSULE (FP) PO SCH (06:11)
[2018-12-05] MEDS ORDERED: DEXTROSE 5%-WATER 100 ML IVPB ONE (09:21)
[2018-12-05 09:33] VITALS: BP 157/88; PULSE 55; TEMP 98.3
[2018-12-05] MEDS: ASCORBIC ACID 500 MG TABLET (FP) PO SCH (09:58)
[2018-12-05] MEDS: APIXABAN 5 MG TABLET PO SCH (09:58)
[2018-12-05] MEDS: CEFTRIAXONE 2 GM in DEXTROSE 5%-WATER 100 ML IVPB SCH (09:58)
[2018-12-05] MEDS: DONEPEZIL HCL 5 MG TABLET (FP) PO SCH (09:59)
[2018-12-05] MEDS: GABAPENTIN 100 MG CAPSULE (FP) PO SCH (09:59)
[2018-12-05] MEDS: levETIRAcetam 250 MG TABLET (FP) PO SCH (09:59)
[2018-12-05] MEDS: LORATADINE 10 MG TABLET PO SCH (09:59)
[2018-12-05] MEDS: MULTIVITAMINS (DAILY MVI) TABLET (FP) PO SCH (09:59)
[2018-12-05] MEDS: AZITHROMYCIN 250 MG TABLET PO SCH (09:59)
[2018-12-05] MEDS: amLODIPine BESYLATE 10 MG TABLET (FP) PO SCH (09:59)
[2018-12-05] MEDS: VALSARTAN 160 MG TABLET (UD) PO SCH (09:59)
[2018-12-05] MEDS: TAMSULOSIN HCL 0.4 MG CAP PO SCH (09:59)
[2018-12-05] MEDS: hydrALAZINE HCL 25 MG TABLET (FP) PO SCH (09:59)
--- NOTE | 2018-12-05 11:28 | PN ---
Progress Note, Physician Chief Complaint: patient seen and examined aide has come to pick him up going home today - Current Medication List Current Medications: Active Medications Acetaminophen (Tylenol -) 650 mg PO Q6H PRN PRN Reason: PAIN 1-5 Amlodipine Besylate (Norvasc -) 10 mg PO DAILY [facility] Last Admin: 12/05/18 09:59 Dose: 10 mg Apixaban (Eliquis -) 5 mg PO BID [facility] Last Admin: 12/05/18 09:58 Dose: 5 mg Ascorbic Acid (Vitamin C -) 500 mg PO DAILY [facility] Last Admin: 12/05/18 09:58 Dose: 500 mg Docusate Sodium (Colace -) 100 mg PO TID [facility] Last Admin: 12/05/18 06:11 Dose: 100 mg Donepezil HCl (Aricept -) 10 mg PO DAILY [facility] Last Admin: 12/05/18 09:59 Dose: 10 mg Gabapentin (Neurontin -) 100 mg PO DAILY [facility] Last Admin: 12/05/18 09:59 Dose: 100 mg Hydralazine HCl (Apresoline -) 25 mg PO QID [facility] Last Admin: 12/05/18 09:59 Dose: 25 mg Ceftriaxone Sodium 2 gm/ (Dextrose) 100 mls @ 200 mls/hr IVPB DAILY [facility]; Protocol Last Admin: 12/05/18 09:58 Dose: 200 mls/hr Levetiracetam (Keppra -) 750 mg PO BID [facility] Last Admin: 12/05/18 09:59 Dose: 750 mg Levothyroxine Sodium (Synthroid -) 75 mcg PO AM [facility] Last Admin: 12/05/18 06:11 Dose: 75 mcg Loratadine (Claritin -) 10 mg PO DAILY [facility] Last Admin: 12/05/18 09:59 Dose: 10 mg Metoprolol Succinate (Toprol Xl -) 150 mg PO DAILY [facility] Last Admin: 12/05/18 09:59 Dose: 150 mg Multivitamins/Minerals/Vitamin C (Tab-A-Vit -) 1 tab PO DAILY [facility] Last Admin: 12/05/18 09:59 Dose: 1 tab Rosuvastatin Calcium (Crestor -) 10 mg PO HS [facility] Last Admin: 12/04/18 21:33 Dose: 10 mg Sitagliptin Phosphate (Januvia -) 50 mg PO DAILY@0700 [facility] Last Admin: 12/05/18 06:11 Dose: 50 mg Tamsulosin HCl (Flomax -) 0.8 mg PO DAILY@0830 [facility] Last Admin: 12/05/18 09:59 Dose: 0.8 mg Valsartan (Diovan -) 320 mg PO DAILY [facility] Last Admin: 12/05/18 09:59 Dose: 320 mg - Objective Vital Signs: Vital Signs Temperature 98.3 F 12/05/18 09:32 Pulse Rate 55 L 12/05/18 09:32 Respiratory Rate 18 12/05/18 10:00 Blood Pressure 157/88 12/05/18 09:32 O2 Sat by Pulse Oximetry (%) 96 12/05/18 10:00 Constitutional: Yes: Calm Cardiovascular: Yes: Regular Rate and Rhythm, S1, S2 Respiratory: Yes: CTA Bilaterally, Diminished (at bases) Gastrointestinal: Yes: Normal Bowel Sounds, Soft Neurological: Yes: Alert, Pre-Existing Deficit Labs: CBC, BMP 12/02/18 07:20 12/02/18 07:20 INR, PTT INR Cancelled 11/30/18 12:15 Problem List - Problems (1) Sepsis Assessment/Plan: broad spectrum iv abx for CAP ID on board complete zithromax to continue ceftin at home Code(s): A41.9 - SEPSIS, UNSPECIFIED ORGANISM Qualifiers: Sepsis type: sepsis due to unspecified organism Sepsis acute organ dysfunction status: unspecified Qualified Code(s): A41.9 - Sepsis, unspecified organism (2) Afib Assessment/Plan: eliquis bid Code(s): I48.91 - UNSPECIFIED ATRIAL FIBRILLATION Qualifiers: (3) Hypothyroid Assessment/Plan: tsh noted synthroid Code(s): E03.9 - HYPOTHYROIDISM, UNSPECIFIED Qualifiers: Hypothyroidism type: unspecified Qualified Code(s): E03.9 - Hypothyroidism , unspecified (4) Pericardial effusion Assessment/Plan: echo ordered Code(s): I31.3 - PERICARDIAL EFFUSION (NONINFLAMMATORY)
== END 2018-12-05 11:55 | disposition home health service (06) | DRG 871 ==
LOC: JER 11:38 → JERBED 13:31 → J5S 18:12
PROVIDERS: ADMIT Family Medicine; ATTEND Family Medicine
DX: A41.9 Sepsis, unspecified organism (principal); J18.9 Pneumonia, unspecified organism; I69.354 Hemiplegia and hemiparesis following cerebral infarction affecting left non-dominant side; I31.3 Pericardial effusion (noninflammatory); I48.91 Unspecified atrial fibrillation; E78.5 Hyperlipidemia, unspecified; I25.10 Atherosclerotic heart disease of native coronary artery without angina pectoris; I25.2 Old myocardial infarction; E11.22 Type 2 diabetes mellitus with diabetic chronic kidney disease; I12.9 Hypertensive chronic kidney disease with stage 1 through stage 4 chronic kidney disease, or unspecified chronic kidney disease; N18.9 Chronic kidney disease, unspecified; Z79.4 Long term (current) use of insulin; D64.9 Anemia, unspecified; N40.0 Benign prostatic hyperplasia without lower urinary tract symptoms; E03.9 Hypothyroidism, unspecified
CPT/HCPCS: 36415; 71045-TC-FY; 74176-TC; 80053; 80061; 81003; 82550; 82553; 82803; 82962; 83036; 83605; 83721; 83735; 84100; 84436; 84443; 84484; 85025; 85610; 85730; 87040; 87086; 87804; 87899; 93005; 93010; 93306-TC; 99284-25; J0131; J7030; Q2036

== ENCOUNTER 2020-05-19 16:09 | Emergency (ER) | payer OTHER ==
[2020-05-19 16:39] VITALS: BMI 28.8
[2020-05-19] MEDS ORDERED: DEXAMETHASONE SOD PHOSPHATE 10 MG/1 ML VIAL IVPUSH ONE (17:01)
[2020-05-19] MEDS ORDERED: DEXAMETHASONE SOD PHOSPHATE 10 MG/1 ML VIAL ONE (17:41)
[2020-05-19] MEDS ORDERED: PIPERACILLIN/TAZOB 3.375 GM 3.375 GM in DEXTROSE 5%-WATER - 50 ML IVPB ONE (18:16)
[2020-05-19] MEDS ORDERED: VANCOMYCIN 1 GM in D5W (PRE-DOCKED) 1,000 MG/250 ML IVPB ONE (18:16)
[2020-05-19] MEDS ORDERED: VANCOMYCIN 1,250 MG in DEXTROSE 5%-WATER - 250 ML IVPB ONE (18:18)
[2020-05-19 18:56] LABS: VENOUS BASE EXCESS 5.9 mmol/L (-2-2); VENOUS O2 SATURATION 52.1 % (70-80); VENOUS PH 7.282 (7.310-7.410)
[2020-05-19 18:58] LABS: VENOUS PCO2 75.1 mmHg (38-52)
[2020-05-19 19:02] LABS: BASO % 0.8 % (0-2.0); EOS % 3.9 % (0-4.5); HEMATOCRIT 32.3 % (35.4-49); MCH 22.5 pg (25.7-33.7); MCHC 30.9 g/dl (32.0-35.9); MEAN CELL VOLUME 72.7 fl (80-96); MEAN PLT VOLUME 8.8 fl (7.5-11.1); MONO % 6.1 % (3.8-10.2); NEUT % 68.2 % (42.8-82.8); PLATELET COUNT 131 K/MM3 (134-434); RBC 4.45 M/mm3 (4.00-5.60); RDW 17.4 % (11.9-15.9); WHITE BLOOD COUNT 5.5 K/mm3 (4.0-10.0)
[2020-05-19 19:23] LABS: ALBUMIN 3.2 g/dl (3.4-5.0); BLOOD UREA NITROGEN 20.5 mg/dL (7-18)
[2020-05-19 19:26] LABS: INR 1.38 (0.83-1.09); PROTHROMBIN TIME (PATIENT) 16.6 SEC (9.7-13.0)
[2020-05-19 19:27] LABS: BILIRUBIN,DIRECT 0.1 mg/dL (0.0-0.2); BILIRUBIN,TOTAL 0.3 mg/dL (0.2-1); CREATININE 1.5 mg/dL (0.55-1.3)
[2020-05-19 19:28] LABS: TOT PROT 7.6 g/dl (6.4-8.2)
[2020-05-19 19:29] LABS: ACTIVATED PTT 28.6 SECONDS (25.2-36.5)
[2020-05-19] MEDS ORDERED: SODIUM CHLORIDE 1,000 ML IV SCH (20:15)
[2020-05-19 22:56] LABS: EPI CELLS 20 /uL (0-25.1); HYALINE CASTS 4 /uL (0-3.1); URINE APPEARANCE CLEAR; URINE BACTERIA 74 /uL (0-1359); URINE BILIRUBIN NEGATIVE (NEGATIVE); URINE COLOR YELLOW; URINE GLUCOSE (UA) NEGATIVE (NEGATIVE); URINE KETONE TRACE (NEGATIVE); URINE LEUK ESTERASE NEGATIVE (NEGATIVE); URINE NITRITE NEGATIVE (NEGATIVE); URINE PROTEIN 2+ (NEGATIVE); URINE RBC 8 /uL (0-23.9); URINE UROBILINOGEN 0.2 mg/dL (0.2-1.0); URINE WBC 12 /uL (0-25.8)
[2020-05-19] MEDS ORDERED: SODIUM CHLORIDE 500 ML IV STA (23:06)
[2020-05-20 02:24] VITALS: TEMP 98
[2020-05-20] MEDS ORDERED: ESMOLOL 2500 MG/250 ML 2,500,000 MCG/250 ML INFUS.BAG IVPB SCH ×2 (03:36→03:45)
[2020-05-20] MEDS ORDERED: ESMOLOL 2500 MG/250 ML 2,500,000 MCG/250 ML INFUS.BAG IVPB ONE (03:38)
[2020-05-20] MEDS ORDERED: ESMOLOL HCL 100 MG/10 ML VIAL IVPUSH ONE (04:00)
[2020-05-20 04:14] VITALS: BP 133/72; PULSE 55
== END 2020-05-20 04:36 | disposition short-term general hospital (02) ==
LOC: JER 16:09
PROC: 3E03329 Introduction of Other Anti-infective into Peripheral Vein, Percutaneous Approach (ICD-10-PCS; principal; 2020-05-19)
PROC: 3E033NZ Introduction of Analgesics, Hypnotics, Sedatives into Peripheral Vein, Percutaneous Approach (ICD-10-PCS; 2020-05-19)
PROC: 3E0337Z Introduction of Electrolytic and Water Balance Substance into Peripheral Vein, Percutaneous Approach (ICD-10-PCS; 2020-05-19)
DX: R06.02 Shortness of breath (principal); R05 Cough; I71.9 Aortic aneurysm of unspecified site, without rupture
CPT/HCPCS: 36415; 71045-TC-FY; 71275-TC; 80053; 81003; 82248; 82550; 82728; 82803; 83605; 83615; 84484; 85025; 85379; 85610; 85730; 86140; 87040; 87086; 87804; 93005; 93010; 99285-25; C9803; J1100; U0003; U0005